=== PATIENT | male | born 1960 | race Caucasian/White ===

== ENCOUNTER → 2020-12-12 11:42 | Outpatient (BNVA) | payer OTHER, SELFPAY | PROVIDERS: PCP Internal Medicine; Visit Provider Internal Medicine | DX: I25.10 Atherosclerotic heart disease of native coronary artery without angina pectoris (principal); I10 Essential (primary) hypertension; E78.5 Hyperlipidemia, unspecified; Z95.5 Presence of coronary angioplasty implant and graft | CPT/HCPCS: 93005; 99212 ==

== ENCOUNTER 2021-01-24 09:00 | Outpatient (REF) | payer OTHER, SELFPAY ==
[2021-01-24 09:36] LABS: Basophils Absolute Auto 0.1 X10*3/uL (0.0-0.2); Basophils Percent Auto 0.9 % (0-2); Eosinophils Absolute Auto 0.3 X10*3/uL (0.0-0.4); Eosinophils Percent Auto 3.4 % (0-4); Hematocrit 40.4 % (42-52); Imm Gran Abs Auto 0.03 X10*3/uL (0.00-0.03); Imm Gran Pct Auto 0.3 % (0.0-0.4); Lymphocytes Absolute Auto 3.7 X10*3/uL (1.2-4.9); Lymphocytes Percent Auto 36.9 % (20-40); MANUAL DIFF FLAG NO; Mean Corpuscular HGB Conc 32.2 g/dl (31.0-36.0); Mean Corpuscular Hemoglobin 25.7 pg (27.0-33.0); Mean Platelet Volume 11.9 fL (9.4-12.4); Monocytes Absolute Auto 0.8 X10*3/uL (0.1-1.2); Neutrophils Absolute Auto 5.1 X10*3/uL (2.0-8.3); Neutrophils Percent Auto 50.5 % (45-73); Platelet Count 206 X10*3/uL (160-400); Red Blood Count 5.05 X10*6/uL (4.60-5.80); White Blood Count 10.1 X10*3/uL (4.8-10.8)
[2021-01-24 10:12] LABS: Alanine Aminotransferase 33 U/L (0-40); Albumin Level 4.5 g/dL (3.5-5.0); Alkaline Phosphatase 119 U/L (39-117); Anion Gap 12 (12-20); Aspartate Amino Transferase 26 U/L (5-37); Bilirubin Direct 0.2 mg/dL (0.0-0.5); Bilirubin Total 0.3 mg/dL (0.0-1.0); Blood Urea Nitrogen 10 mg/dL (9-16); Calcium 10.1 mg/dL (8.4-10.2); Carbon Dioxide 26 mmol/L (22-29); Chloride 101 mmol/L (96-108); Cholesterol 124 mg/dL; Estimated Glomerular Filt Rate > 60; Glucose Fasting 457 mg/dL (60-99); HDL Cholesterol 43 mg/dL; LDL Cholesterol Calculated 69 mg/dl; Potassium 4.9 mmol/L (3.3-5.1); Sodium 134 mmol/L (135-145); Total Protein 7.4 g/dL (6.5-8.0); Triglycerides 60 mg/dL
[2021-01-24 10:26] LABS: PSA,Total (Free>4and<10) 0.63 ng/mL (0.00-4.00); TSH reflex Free T4 2.65 uIU/mL (0.32-4.0)
[2021-01-25 12:47] LABS: Vitamin B12 920 pg/mL (200-900)
[2021-01-28 11:53] LABS: Vitamin D 25-OH, D2 <4 ng/mL; Vitamin D 25-OH, D3 21 ng/mL; Vitamin D 25-OH, Total 21 ng/mL (30-100)
== END 2021-01-24 09:01 | disposition home or self-care (01) ==
LOC: HO.LAB 09:00
PROVIDERS: PCP Internal Medicine; Visit Provider Internal Medicine
DX: I25.10 Atherosclerotic heart disease of native coronary artery without angina pectoris (principal); I10 Essential (primary) hypertension; E55.9 Vitamin D deficiency, unspecified; R53.83 Other fatigue; N39.43 Post-void dribbling; E78.00 Pure hypercholesterolemia, unspecified; Z20.822 Contact with and (suspected) exposure to COVID-19; Z12.5 Encounter for screening for malignant neoplasm of prostate
CPT/HCPCS: 36415; 80053; 80061; 80076; 82306; 82607; 82746; 84153; 84443; 85025; U0003; U0005

== ENCOUNTER 2021-03-16 11:31 | Emergency (ER) | payer OTHER, SELFPAY ==
--- NOTE | ~2021-03-16 | XR_ITS ---
EXAMINATION: XR FINGER, RIGHT CLINICAL INFORMATION: Question foreign body COMPARISON: None TECHNIQUE: 3 views of the right fourth digit. FINDINGS: The bones and soft tissues are normal. No fracture. Alignment is anatomic. Joint spaces are maintained. XR/XR finger RT min 2V IMPRESSION: No radiopaque foreign body or deformity.
[2021-03-16 11:57] VITALS: BP 109/76; PULSE 78; RESP 18; TEMP 36.9; O2SAT 95; BMI 22.8
[2021-03-16] MEDS: Amoxicillin/Potassium Clav 875 MG TABLET PO (12:28)
[2021-03-16] MEDS: Lidocaine HCl 1 % MPF 5 ML VIAL SUBCUT (12:28)
--- NOTE | 2021-03-16 13:57 | ED_ITS ---
HPI - Skin/Abscess/Foreign Bdy General Chief complaint: Skin/Abscess/Foreign Body Stated complaint: fb in finger Time Seen by Provider: 03/16/21 12:15 Source: patient Mode of arrival: ambulatory Limitations: no limitations History of Present Illness HPI narrative: Right ring finger question foreign body he has had pain and swelling in the palmar aspect for past 2 days. States he went fishing was picking up wood and unsure if gets splinter in or not. He otherwise states he is up-to-date on vaccinations denies any other complaints. MD complaint: abscess/boil Onset (ago): day(s) (2) Tetanus up to date: yes Location: R hand (Right ring finger) Severity: mild Severity scale (1-10): 4 Relieving factors: none Exacerbating factors: none Context: none Associated symptoms: denies other symptoms Treatments prior to arrival: none Related Data Home Medications Medication Instructions Recorded Confirmed aspirin 81 mg chewable tablet 1 tab PO DAILY 09/04/20 01/16/21 atorvastatin 80 mg tablet 80 mg PO DAILY 09/04/20 01/16/21 Previous Rx's Medication Instructions Recorded metoprolol succinate 25 mg 25 mg PO DAILY 90 Days #90 tab 09/06/20 tablet,extended release 24 hr ezetimibe 10 mg tablet 10 mg PO DAILY #90 tab 11/03/20 amlodipine 10 mg tablet 10 mg PO DAILY #90 tab 12/12/20 hydrochlorothiazide 25 mg tablet 25 mg PO DAILY 90 Days #90 tab 12/23/20 metformin 500 mg tablet 500 mg PO BID 30 Days #60 tab 01/24/21 blood sugar diagnostic #100 ea 01/28/21 blood-glucose meter #1 ea 01/28/21 lancets 28 gauge #100 ea 01/28/21 amoxicillin-pot clavulanate 1 tab PO Q12H 7 Days #14 tab 03/16/21 [Augmentin] Allergies Allergy/AdvReac Type Severity Reaction Status Date / Time anesthesia from wisdom tooth Allergy Unknown pt woke up Uncoded 03/16/21 12:00 e in hospital, does not remember reaction Review of Systems Review of Systems: Constitutional: No Weight loss, No Fever, No Chills, No Night Sweats, No Fatigue, No Malaise ENT/Mouth: No Hearing loss, No Ear Pain, No Nasal Congestion, No Sinus Pain, No Hoarseness, No sore throat, No Rhinorrhea, No Swallowing Difficulty Eyes: Negative Cardiovascular: Negative Respiratory: Negative Gastrointestinal: Negative Genitourinary: Negative Musculoskeletal: No joint pain, No Myalgias, No Joint Swelling Skin: No Skin Lesions, No rash, as noted per HPI Neuro: No Weakness, No Numbness, No Paresthesias, No Loss of Consciousness, No Dizziness, No Headache Psych:No Social Issues Heme/Lymph: No Bruising, No Bleeding,No Lymphadenopathy Endocrine: No Polyuria, No Polydipsia, No Temperature Intolerance Yes all other systems are reviewed and are negative [facility] Past Medical History Medical History Atherosclerotic cardiovascular disease CAD (coronary artery disease) Essential hypertension Fatigue Other and unspecified hyperlipidemia Pure hypercholesterolemia Urinary dribbling Surgical History Stented coronary artery Family History Family History Mother CVD (cardiovascular disease) Father Diabetes Hypertension Social History Social History (Updated 01/16/21 @ 09:52 by Katlyn Jaimes MD) Alcohol intake: never Smoking Status: Current every day smoker Tobacco Type: Cigarette Cigarettes Per Day: 10 Advance Directives: No Advance Directives Information Provided: Yes Physical Exam Vital Signs: Vital Signs: Last Vital Signs Temp 98.5 F 03/16/21 11:57 Pulse 78 03/16/21 11:57 Resp 18 03/16/21 11:57 BP 109/76 03/16/21 11:57 Pulse Ox 95 03/16/21 11:57 Body Mass Index 22.8 Reviewed Const: General: cooperative and healthy appearing; No acute distress or intoxicated appearing Nutritional Appearance: average body habitus Orientation/consciousness: patient oriented x3 Chest: Chest palpation & inspection: normal inspection of the chest Resp: Effort & Inspection: normal respiratory effort Skin: General skin exam: no rashes or lesions noted Neuro: General: patient oriented x3 Extrem: General: Yes normal to inspection Hand/finger images: 1. Slightly indurated area proximal palmar aspect slightly TTP. No obvious erythema. Visible with a splinter. Course Course Course Narrative: X-ray without evidence of foreign body in the right ring finger. Visibly there is a splinter and slightly indurated area with slight purulent discharge this was removed using forceps and 18. Needle after digital block. Patient tolerated procedure very well he was given dose of Augmentin her e his underlying history of diabetes will start him on antibiotics for home clear precaution return follow-up instructions provided. Stable for discharge. Procedures Foreign Body Removal Site: right Description of foreign body: other (Ring finger) Sedation/Analgesia: other (Lidocaine digital block) Technique: manual removal and removal with forceps Confirmed by:: direct visualization Complications: none Post-procedure exam: awake, alert Neurovascular: normal distal pulse, normal capillary fill, distal light touch sensation intact, distal motor function normal, no signs of compartment syndrome and other (Small less than 0.5 cm wooden splinter removed intact. No further evidence of foreign body.) Discharge Plan Discharge Clinical Impression: Splinter of finger Patient Disposition: Home, Self-Care Instructions: Soft Tissue Foreign Body (ED) Additional Instructions: You had a wooden splinter removed from the right ring finger there was a small infections like The x-ray did not otherwise show anything outs On exam after I took up with a splinter does not appear to be any retained foreign body It is very important for you to take the full course of antibiotics for next 7 days Monitor for signs of infection including redness, swelling, discharge, pain or fever if any of these present return to emergency room right away Follow-up with your primary care doctor in 3-5 days for close check given your history of diabetes you are at increased risk for infections and poor healing. Thank you Prescriptions: New amoxicillin-pot clavulanate [Augmentin] 875-125 mg tablet 1 tab PO Q12H 7 Days Qty: 14 RF: 0 No Action metoprolol succinate 25 mg tablet extended release 24 hr 25 mg PO DAILY 90 Days Qty: 90 RF: 3 ezetimibe 10 mg tablet 10 mg PO DAILY Qty: 90 RF: 3 metformin 500 mg tablet 500 mg PO BID 30 Days Qty: 60 RF: 6 (DME) blood-glucose meter [FreeStyle Lite Meter] Kit See Rx Instructions .ROUTE .MEDSUPPLY Qty: 1 RF: 0 (DME) FreeStyle Lite Strips Strip See Rx Instructions .ROUTE .MEDSUPPLY Qty: 100 RF: 3 (DME) lancets [FreeStyle Lancets] 28 gauge misc See Rx Instructions .ROUTE .MEDSUPPLY Qty: 100 RF: 3 aspirin 81 mg tablet,chewable 1 tab PO DAILY RF: 0 atorvastatin 80 mg tablet 80 mg PO DAILY RF: 0 hydrochlorothiazide 25 mg tablet 25 mg PO DAILY 90 Days Qty: 90 RF: 1 amlodipine 10 mg tablet 10 mg PO DAILY Qty: 90 RF: 4 Referrals: Katlyn Teague MD [Primary Care Provider] - 3 days Interventions: ED Discharge Assessment Last Done: 03/16/21 14:10 Discharge Date/Time: 03/16/21 14:10
== END 2021-03-16 14:10 | disposition home or self-care (01) ==
PROVIDERS: Emergency Provider Emergency Medicine; PCP Internal Medicine
DX: S61.244A Puncture wound with foreign body of right ring finger without damage to nail, initial encounter (principal); W45.8XXA Other foreign body or object entering through skin, initial encounter; Y93.89 Activity, other specified; Y92.89 Other specified places as the place of occurrence of the external cause; Y99.8 Other external cause status
CPT/HCPCS: 73140; 96372; 99283; 99284

== ENCOUNTER → 2021-04-03 15:07 | Outpatient (BNVA) | payer OTHER, SELFPAY | PROVIDERS: PCP Internal Medicine; Visit Provider Urology ==

== ENCOUNTER → 2021-04-29 12:44 | Outpatient (BNVA) | payer OTHER, SELFPAY | PROVIDERS: PCP Internal Medicine; Visit Provider Nurse Practitioner Gerontology | DX: E11.65 Type 2 diabetes mellitus with hyperglycemia (principal); E78.00 Pure hypercholesterolemia, unspecified; E55.9 Vitamin D deficiency, unspecified; I10 Essential (primary) hypertension | CPT/HCPCS: 82947; 99212 ==

== ENCOUNTER → 2021-05-28 10:35 | Outpatient (BNVA) | payer OTHER, SELFPAY | PROVIDERS: PCP Internal Medicine; Visit Provider Dietitian, Registered | DX: E11.65 Type 2 diabetes mellitus with hyperglycemia (principal) | CPT/HCPCS: 97802 ==

== ENCOUNTER → 2021-06-03 07:13 | Outpatient (BNVA) | payer OTHER, SELFPAY | PROVIDERS: PCP Internal Medicine; Visit Provider Nurse Practitioner Gerontology | DX: E11.65 Type 2 diabetes mellitus with hyperglycemia (principal); E78.00 Pure hypercholesterolemia, unspecified; I10 Essential (primary) hypertension; E55.9 Vitamin D deficiency, unspecified | CPT/HCPCS: 82947; 99212 ==

== ENCOUNTER → 2021-06-11 12:09 | Outpatient (BNVA) | payer OTHER, SELFPAY | PROVIDERS: PCP Internal Medicine; Referring Provider Internal Medicine; Visit Provider Internal Medicine | DX: I25.10 Atherosclerotic heart disease of native coronary artery without angina pectoris (principal); E78.5 Hyperlipidemia, unspecified; I10 Essential (primary) hypertension; Z95.5 Presence of coronary angioplasty implant and graft; Z79.82 Long term (current) use of aspirin | CPT/HCPCS: 99212 ==

== ENCOUNTER → 2021-07-10 13:35 | Outpatient (BNVA) | payer OTHER, SELFPAY | PROVIDERS: PCP Internal Medicine; Visit Provider Dietitian, Registered | DX: E11.9 Type 2 diabetes mellitus without complications (principal) | CPT/HCPCS: 97803 ==

== ENCOUNTER → 2021-08-21 13:56 | Outpatient (BNVA) | payer OTHER, SELFPAY | PROVIDERS: PCP Internal Medicine; Visit Provider Dietitian, Registered | DX: E11.65 Type 2 diabetes mellitus with hyperglycemia (principal) | CPT/HCPCS: 97803 ==

== ENCOUNTER 2021-09-22 10:42 | Emergency (ER) | payer OTHER, SELFPAY ==
[2021-09-22 11:05] VITALS: BP 151/82; PULSE 86; RESP 20; TEMP 35.7; O2SAT 99; BMI 26.6
--- NOTE | 2021-09-22 12:35 | ED_ITS ---
HPI - Wound/Laceration General Chief Complaint: Wound/Laceration Stated Complaint: R foot issues (diabetic) Time Seen by Provider: 09/22/21 12:29 Source: patient Mode of arrival: ambulatory Limitations: no limitations History of Present Illness HPI narrative: Patient comes emergency room complaining of a blister in the lateral aspect of the right foot/plantar aspect. Patient states he noticed the blister today. Patient opted, no longer draining pus. Patient complaining of mild generalized pain, patient denies fever chills. Related Data Previous Rx's Medication Instructions Recorded metoprolol succinate 25 mg 25 mg PO DAILY 90 Days #90 tab 09/06/20 tablet,extended release 24 hr ezetimibe 10 mg tablet 10 mg PO DAILY #90 tab 11/03/20 amlodipine 10 mg tablet 10 mg PO DAILY #90 tab 12/12/20 blood sugar diagnostic (FreeStyle #100 ea 01/28/21 Lite Strips) blood-glucose meter (FreeStyle #1 ea 01/28/21 Lite Meter) lancets 28 gauge (FreeStyle #100 ea 01/28/21 Lancets) insulin glargine 100 unit/mL (3 20 unit (0.2 mL) SUBCUT QPM 30 04/22/21 mL) subcutaneous pen (Lantus Days #6 ml Solostar U-100 Insulin) metformin 1,000 mg tablet 1,000 mg PO BID 90 Days #180 tab 04/22/21 pen needle, diabetic 32 gauge x #100 ea 04/22/21 516 (Comfort EZ Pen [place]) pen needle, diabetic 32 gauge x #100 ea 04/22/21 (BD Jacinda 2nd Gen Pen Needle) cholecalciferol (vitamin D3) 25 25 mcg PO DAILY #30 cap 04/29/21 mcg (1,000 unit) capsule flash glucose scanning reader #1 ea 04/29/21 (FreeStyle Brian 2 [place]) hydrochlorothiazide 25 mg tablet 25 mg PO DAILY 90 Days #90 tab 06/17/21 flash glucose sensor (FreeStyle #2 ea 06/19/21 Brian 2 Sensor) atorvastatin 80 mg tablet 80 mg PO DAILY 90 Days #90 tab 06/30/21 aspirin 81 mg chewable tablet 1 tab PO DAILY 90 Days #90 tab 08/05/21 tamsulosin 0.4 mg capsule 0.4 mg PO BEDTIME 30 Days #90 cap 08/19/21 mupirocin 2 % topical ointment 1 appl TOPICAL TID #15 g 09/22/21 Allergies Allergy/AdvReac Type Severity Reaction Status Date / Time anesthesia from wisdom tooth Allergy Intermediate pt woke up Uncoded 09/09/21 13:13 e in hospital, does not remember reaction Review of Systems Review of Systems: Constitutional : No Weight loss, No Fever, No Chills, No Night Sweats, No Fatigue, No Malaise ENT/Mouth : No Hearing loss, No Ear Pain, No Nasal Congestion, No Sinus Pain, No Hoarseness, No sore throat, No Rhinorrhea, No Swallowing Difficulty Eyes: No Eye Pain, No Swelling, No Redness, No Foreign Body, No Discharge, No Vision Changes Cardiovascular : No Chest Pain, No SOB, No Dyspnea on Exertion, No Orthopnea, No Edema, No Palpitations Respiratory : No Cough, No Sputum, No Wheezing, No Smoke Exposure, No Dyspnea Gastrointestinal : No Nausea, No Vomiting, No Diarrhea, No Constipation, No abdominal Pain, No Hematochezia, No Melena Genitourinary : no irregular bleeding, No Dysuria, No Urinary Frequency, No Hematuria, No Urinary Incontinence, No Urgency, No Flank Pain, No Urinary Flow Changes, No Hesitancy Musculoskeletal : No joint pain, No Myalgias, No Joint Swelling Skin : Small blister on the plantar/lateral aspect the right foot Neuro : No Weakness, No Numbness, No Paresthesias, No Loss of Consciousness, No Dizziness, No Headache Psych : No Anxiety/Panic, No Depression, No SI/HI/AH/VH, No Social Issues, Heme/Lymph: No Bruising, No Bleeding,No Lymphadenopathy Endocrine : No Polyuria, No Polydipsia, No Temperature Intolerance [facility] Past Medical History Medical History Atherosclerotic cardiovascular disease BPH (benign prostatic hyperplasia) CAD (coronary artery disease) Diabetes mellitus Diabetes type 2, uncontrolled Essential hypertension Fatigue Other and unspecified hyperlipidemia Pure hypercholesterolemia Urinary dribbling Vitamin D deficiency Surgical History Stented coronary artery Family History Family History Mother CVD (cardiovascular disease) Father Diabetes Hypertension Social History Social History Household Members: Spouse Housing: Apartment Alcohol intake: current Alcohol intake frequency: a few times a month Alcohol type: beer Patient Tobacco Use Status: Current everyday Tobacco user Tobacco use type: Cigarette Cigarettes Per Day: 10 e-Cigarette/Vaping Use: Never Used Second Hand Smoke Exposure: No Advance Directives: No Advance Directives Information Provided: No service: No Current occupational status: unemployed Physical Exam Vital Signs: Vital Signs: Last Vital Signs Temp 96.3 F L 09/22/21 11:05 Pulse 86 09/22/21 11:05 Resp 20 09/22/21 11:05 BP 151/82 H 09/22/21 11:05 Pulse Ox 99 09/22/21 11:05 Body Mass Index 26.6 Const: Other: Appearance: Alert. Oriented X3. No acute distress. Eyes: Pupils equal, round and reactive to light. ENT: Pharynx normal. Neck: Normal inspection. Neck supple. No lymph nodes noted. No crepitus CVS: Normal heart rate and rhythm. Pulses normal. Normal S1 and S2 Respiratory: No respiratory distress. Breath sounds normal. No Wheezing. No rales Abdomen: Soft and nontender. No rigidity. No distention. good BS x4 Skin: Skin warm and dry. Small callus in the lateral aspect of the right foot, not fluid filled, not tender to palpation, no cellulitis Extremities: No lower extremity edema. No lower extremity edema. No Lacerations. No Rash see above Neuro: Oriented X 3. No motor deficit. No sensory deficit. Moving all extermities. No slurred speech. Course Course Course Narrative: I discussed the physical exam with the patient, at this time oral antibiotics are not recommended. Discharge Plan Discharge Clinical Impression: Blister Patient Disposition: Home, Self-Care Instructions: Blister (ED) Additional Instructions: Please follow-up with your primary care physician tomorrow. If you have any worsening or new symptoms, please return to the emergency room or call 911 Prescriptions: New mupirocin 2 % ointment 1 appl topical TID Qty: 15 RF: 0 No Action metoprolol succinate 25 mg tablet extended release 24 hr 25 mg PO DAILY 90 Days Qty: 90 RF: 3 ezetimibe 10 mg tablet 10 mg PO DAILY Qty: 90 RF: 3 (DME) blood-glucose meter [FreeStyle Lite Meter] Kit See Rx Instructions .ROUTE .MEDSUPPLY Qty: 1 RF: 0 (DME) FreeStyle Lite Strips Strip See Rx Instructions .ROUTE .MEDSUPPLY Qty: 100 RF: 3 (DME) lancets [FreeStyle Lancets] 28 gauge misc See Rx Instructions .ROUTE .MEDSUPPLY Qty: 100 RF: 3 (DME) pen needle, diabetic [BD Jacinda 2nd Gen Pen Needle] 32 gauge x 5/32 needle See Rx Instructions .ROUTE .MEDSUPPLY Qty: 100 RF: 3 hydrochlorothiazide 25 mg tablet 25 mg PO DAILY 90 Days Qty: 90 RF: 1 (DME) FreeStyle Brian 2 Sensor Kit See Rx Instructions .ROUTE .MEDSUPPLY Qty: 2 RF: 6 atorvastatin 80 mg tablet 80 mg PO DAILY 90 Days Qty: 90 RF: 1 aspirin 81 mg tablet,chewable 1 tab PO DAILY 90 Days Qty: 90 RF: 3 tamsulosin 0.4 mg capsule 0.4 mg PO BEDTIME 30 Days Qty: 90 RF: 3 metformin 1,000 mg tablet 1,000 mg PO BID 90 Days Qty: 180 RF: 3 Lantus Solostar U-100 Insulin 100 unit/mL (3 mL) insulin pen 20 unit subcut QPM 30 Days Qty: 6 RF: 2 (DME) Comfort EZ Pen [place] 32 gauge x 5/16 needle See Rx Instructions .ROUTE .MEDSUPPLY Qty: 100 RF: 3 (DME) FreeStyle Brian 2 [place] Misc See Rx Instructions .ROUTE .MEDSUPPLY Qty: 1 RF: 0 cholecalciferol (vitamin D3) 25 mcg (1,000 unit) capsule 25 mcg PO DAILY Qty: 30 RF: 6 amlodipine 10 mg tablet 10 mg PO DAILY Qty: 90 RF: 4
[2021-09-22 12:47] VITALS: BP 145/91; PULSE 80; TEMP 37.1
== END 2021-09-22 13:03 | disposition home or self-care (01) ==
PROVIDERS: Emergency Provider Emergency Medicine; PCP Internal Medicine
DX: S90.821A Blister (nonthermal), right foot, initial encounter (principal); M79.671 Pain in right foot; F17.210 Nicotine dependence, cigarettes, uncomplicated; X58.XXXA Exposure to other specified factors, initial encounter; Y93.9 Activity, unspecified; Y92.9 Unspecified place or not applicable; Y99.9 Unspecified external cause status; Z79.899 Other long term (current) drug therapy; Z71.6 Tobacco abuse counseling
CPT/HCPCS: 99283; 99284

== ENCOUNTER → 2021-10-07 08:03 | Outpatient (BNVA) | payer OTHER, SELFPAY | PROVIDERS: PCP Internal Medicine; Visit Provider Nurse Practitioner Gerontology | DX: E11.65 Type 2 diabetes mellitus with hyperglycemia (principal); E78.00 Pure hypercholesterolemia, unspecified; E55.9 Vitamin D deficiency, unspecified; I10 Essential (primary) hypertension | CPT/HCPCS: 82947; 99212 ==

== ENCOUNTER 2021-10-13 10:21 | Outpatient (REF) | payer OTHER, SELFPAY ==
[2021-10-13 12:07] LABS: Alanine Aminotransferase 25 U/L (0-40); Albumin Level 4.7 g/dL (3.5-5.0); Alkaline Phosphatase 74 U/L (39-117); Anion Gap 13 (12-20); Aspartate Amino Transferase 26 U/L (5-37); Bilirubin Total 0.5 mg/dL (0.0-1.0); Blood Urea Nitrogen 15 mg/dL (9-16); Calcium 10.5 mg/dL (8.4-10.2); Carbon Dioxide 25 mmol/L (22-29); Chloride 104 mmol/L (96-108); Cholesterol 156 mg/dL; Estimated Glomerular Filt Rate > 60; Glucose Fasting 131 mg/dL (60-99); HDL Cholesterol 64 mg/dL; LDL Cholesterol Calculated 81 mg/dl; Potassium 4.1 mmol/L (3.3-5.1); Sodium 138 mmol/L (135-145); Total Protein 7.6 g/dL (6.5-8.0); Triglycerides 57 mg/dL
[2021-10-13 12:31] LABS: Creatinine Urine 13.14 mg/dL; Microalbumin Urine < 5.0 mg/L
[2021-10-13 12:31] LABS: Vitamin D 25-OH Total 39.2 ng/mL (>30)
[2021-10-14 08:56] LABS: LDL Cholesterol Direct 66 mg/dL (<100)
== END 2021-10-13 10:22 | disposition home or self-care (01) ==
LOC: HO.LAB 10:21
PROVIDERS: PCP Internal Medicine; Visit Provider Nurse Practitioner Gerontology
DX: E11.9 Type 2 diabetes mellitus without complications (principal); E55.9 Vitamin D deficiency, unspecified
CPT/HCPCS: 36415; 80053; 80061; 82043; 82306; 83721

== ENCOUNTER → 2021-11-20 14:48 | Outpatient (BNVA) | payer OTHER, SELFPAY | PROVIDERS: PCP Internal Medicine; Visit Provider Dietitian, Registered | DX: E11.65 Type 2 diabetes mellitus with hyperglycemia (principal) | CPT/HCPCS: 97803 ==

== ENCOUNTER → 2021-11-27 13:07 | Outpatient (BNVA) | payer OTHER, SELFPAY | PROVIDERS: PCP Internal Medicine; Referring Provider Internal Medicine; Visit Provider Internal Medicine | DX: I25.10 Atherosclerotic heart disease of native coronary artery without angina pectoris (principal); I10 Essential (primary) hypertension; E78.5 Hyperlipidemia, unspecified; E11.8 Type 2 diabetes mellitus with unspecified complications; Z95.5 Presence of coronary angioplasty implant and graft | CPT/HCPCS: 93005; 99212 ==

== ENCOUNTER 2022-04-03 10:14 | Outpatient (REF) | payer OTHER, SELFPAY ==
[2022-04-03 11:37] LABS: Creatinine Urine 50.78 mg/dL; Microalbumin Urine < 5.0 mg/L
[2022-04-03 11:53] LABS: PSA,Total (Free>4and<10) 0.48 ng/mL (0.00-4.00)
[2022-04-03 12:08] LABS: Alanine Aminotransferase 17 U/L (0-40); Albumin Level 4.4 g/dL (3.5-5.0); Alkaline Phosphatase 92 U/L (39-117); Anion Gap 9 (12-20); Aspartate Amino Transferase 21 U/L (5-37); Bilirubin Total 0.4 mg/dL (0.0-1.0); Blood Urea Nitrogen 10 mg/dL (9-16); Calcium 10.3 mg/dL (8.4-10.2); Carbon Dioxide 29 mmol/L (22-29); Chloride 101 mmol/L (96-108); Cholesterol 152 mg/dL; Estimated Glomerular Filt Rate > 60; Glucose Fasting 149 mg/dL (60-99); HDL Cholesterol 72 mg/dL; LDL Cholesterol Calculated 73 mg/dl; Potassium 4.3 mmol/L (3.3-5.1); Sodium 135 mmol/L (135-145); Total Protein 7.1 g/dL (6.5-8.0); Triglycerides 35 mg/dL
[2022-04-07 15:43] LABS: Calcium (PTHI) 9.8 mg/dL (8.6-10.3); PTHI 41 pg/mL (16-77)
[2022-04-09 12:57] LABS: Vitamin D 25-OH, D2 <4 ng/mL; Vitamin D 25-OH, D3 30 ng/mL; Vitamin D 25-OH, Total 30 ng/mL (30-100)
[2022-04-10 07:36] LABS: Calcium, Ionized 5.3 mg/dL (4.8-5.6)
== END 2022-04-03 10:15 | disposition home or self-care (01) ==
LOC: HO.LAB 10:14
PROVIDERS: PCP Internal Medicine; Visit Provider Internal Medicine
DX: Z12.5 Encounter for screening for malignant neoplasm of prostate (principal); R35.1 Nocturia; N40.1 Benign prostatic hyperplasia with lower urinary tract symptoms; E83.52 Hypercalcemia; E78.5 Hyperlipidemia, unspecified; E11.8 Type 2 diabetes mellitus with unspecified complications
CPT/HCPCS: 36415; 80053; 80061; 82043; 82306; 82330; 83970; 84153

== ENCOUNTER → 2022-04-06 09:32 | Outpatient (BNVA) | payer OTHER, SELFPAY | PROVIDERS: PCP Internal Medicine; Visit Provider Nurse Practitioner Gerontology | DX: E11.65 Type 2 diabetes mellitus with hyperglycemia (principal); E78.00 Pure hypercholesterolemia, unspecified; E55.9 Vitamin D deficiency, unspecified; I10 Essential (primary) hypertension; Z79.4 Long term (current) use of insulin; Z79.84 Long term (current) use of oral hypoglycemic drugs | CPT/HCPCS: 82947; 99212 ==

== ENCOUNTER 2022-05-09 17:50 | Emergency (ER) | payer OTHER, SELFPAY ==
--- NOTE | 2022-05-09 | ECG_ITS ---
Test Reason : NAUSEA Blood Pressure : / mmHG Vent. Rate : 094 BPM Atrial Rate : 094 BPM P-R Int : 188 ms QRS Dur : 106 ms QT Int : 374 ms P-R-T Axes : 076 042 071 degrees QTc Int : 467 ms Normal sinus rhythm Normal ECG When compared with ECG of 10-JAN-2019 07:01, Vent. rate has increased BY 39 BPM Minimal criteria for Inferior infarct are no longer Present Referred By: Generic ED Physician Electronically Signed By:BRO VILLANUEVA MD
[2022-05-09 18:02] VITALS: BP 133/85; PULSE 88; RESP 18; TEMP 37.2; O2SAT 100; BMI 22.5
[2022-05-09 18:21] LABS: Glucose, Whole Blood 94 mg/dL (60-115)
[2022-05-09 18:22] LABS: Basophils Percent Auto 0.3 % (0-2); Eosinophils Percent Auto 0.2 % (0-4); Hematocrit 42.7 % (42.0-52.0); Hemoglobin 14.4 g/dl (14.0-18.0); Imm Gran Abs Auto 0.03 X10*3/uL (0.00-0.03); Imm Gran Pct Auto 0.3 % (0.0-0.4); Lymphocytes Absolute Auto 1.4 X10*3/uL (1.2-4.9); Lymphocytes Percent Auto 14.4 % (20-40); MANUAL DIFF FLAG NO; Mean Corpuscular HGB Conc 33.7 g/dl (31.0-36.0); Mean Corpuscular Hemoglobin 26.6 pg (27.0-33.0); Mean Corpuscular Volume 78.8 fL (80.0-98.0); Monocytes Absolute Auto 0.5 X10*3/uL (0.1-1.2); Neutrophils Absolute Auto 7.9 x10*3/uL (2.0-8.3); Neutrophils Percent Auto 79.8 % (45-73); Platelet Count 310 X10*3/uL (160-400); Red Blood Count 5.42 X10*6/uL (4.60-5.80); Red Cell Distribution Width 14.3 % (11.0-16.0); White Blood Count 9.9 X10*3/uL (4.8-10.8)
[2022-05-09 18:39] LABS: Alanine Aminotransferase 20 U/L (0-40); Alkaline Phosphatase 111 U/L (39-117); Anion Gap 21 (12-20); Aspartate Amino Transferase 29 U/L (5-37); Bilirubin Direct 0.4 mg/dL (0.0-0.5); Bilirubin Total 0.9 mg/dL (0.0-1.0); Blood Urea Nitrogen 11 mg/dL (9-16); Calcium 10.4 mg/dL (8.4-10.2); Carbon Dioxide 24 mmol/L (22-29); Chloride 92 mmol/L (96-108); Creatinine Clr Calc Pharmacy 88.7; Estimated Glomerular Filt Rate > 60; Glucose Random 111 mg/dL (60-115); Potassium 4.2 mmol/L (3.3-5.1); Sodium 133 mmol/L (135-145); Total Protein 7.9 g/dL (6.5-8.0)
[2022-05-09 18:49] LABS: Appearance Urine CLEAR; Color Urine YELLOW; Glucose Urine UA NEG (NEG); Leukocyte Esterase Urine NEG (NEG); Nitrite Urine NEG (NEG); Specific Gravity - Urine >= 1.030 (1.005-1.025); UACC Culture Trigger NO; Urine Blood TRACE (NEG); Urine Ketones >=80 MG/DL (NEG); Urine Protein TRACE MG/DL (NEG-TRACE)
[2022-05-09 19:05] LABS: Amphetamine Screen Urine Not Detected (Not Detect); Barbiturates, Urine Not Detected (Not Detect); Benzodiazepines Screen Urine Not Detected (Not Detect); Cannabinoid Screen Urine POSITIVE (Not Detect); Cocaine Screen Urine Not Detected (Not Detect); Fentanyl, urine Not Detected (Not Detect); Opiate Screen Urine Not Detected (Not Detect); Phencyclidine Screen Urine Not Detected (Not Detect)
[2022-05-09 19:10] LABS: RBC Urine 0-2 /HPF (0); Squamous Epithelial Cell Urine TRACE /LPF; WBC Urine 0-2 /HPF (0-4)
[2022-05-09 22:18] LABS: Lipase 27 U/L (8-78)
[2022-05-09 22:33] VITALS: BP 146/89; PULSE 94; RESP 16; TEMP 37.5; O2SAT 99
--- NOTE | 2022-05-09 22:38 | ED.NAVMDI ---
HPI - Nausea/Vomiting/Diarrhea General Chief complaint: Abdominal Pain Stated complaint: Abd pain/vomiting/Black spot on foot(diabetic) Time Seen by Provider: 05/09/22 21:45 Source: patient, family and asl interpreter Mode of arrival: ambulatory Limitations: no limitations History of Present Illness MD elicited complaint: nausea, vomiting and abdominal pain Pertinent past history: other (started after eating heavy seafood and some alcohol last night) Onset (ago): hour(s) (6am this morning stopped 2 hours ago) Description of vomiting: food contents, watery and bilious Associated nausea: Yes Associated abdominal pain: Yes Location of pain: periumbilical Pain consistency: intermittent Severity: mild Quality: dull and constant Exacerbating factors: eating Relieving factors: none Context: possible food poisoning Associated symptoms: loss of appetite and other (also worried dropped a can of beans on his R left great toe - able to walk just worried cause he has diabetes) Related Data Previous Rx's Medication Instructions Recorded blood-glucose meter (FreeStyle #1 ea 01/28/21 Lite Meter) lancets 28 gauge (FreeStyle #100 ea 01/28/21 Lancets) insulin glargine 100 unit/mL (3 20 unit (0.2 mL) subcut QPM 30 04/22/21 mL) subcutaneous pen (us days #6 mL Solostar U-100 Insulin) metformin 1,000 mg tablet 1,000 mg PO BID 90 days #180 tabs 04/22/21 pen needle, diabetic 32 gauge x #100 ea 04/22/2103/30 (Comfort EZ Pen [place]) flash glucose scanning reader #1 ea 04/29/21 (FreeStyle Brian 2 [place]) hydrochlorothiazide 25 mg tablet 25 mg PO DAILY 90 days #90 tabs 06/17/21 tamsulosin 0.4 mg capsule 0.4 mg PO BEDTIME 30 days #90 caps 08/19/21 mupirocin 2 % topical ointment 1 appl topical TID #15 grams 09/22/21 flash glucose sensor (FreeStyle #2 ea 11/27/21 Brian 2 Sensor) pen needle, diabetic 32 gauge x #100 ea 11/27/21 (BD Jacinda 2nd Gen Pen Needle) atorvastatin 80 mg tablet 80 mg PO DAILY 90 days #90 tabs 02/07/22 aspirin 81 mg chewable tablet 81 mg PO DAILY 90 days #90 tabs 01/15/22 blood sugar diagnostic (FreeStyle #100 ea 01/18/22 Lite Strips) amlodipine 10 mg tablet 10 mg PO DAILY #90 tabs 03/03/22 cholecalciferol (vitamin D3) 25 25 mcg PO DAILY #30 caps 04/06/22 mcg (1,000 unit) capsule famotidine 20 mg tablet (Pepcid) 20 mg PO DAILY PRN abdominal 05/09/22 discomfort #30 tabs ondansetron 4 mg disintegrating 4 mg PO Q8H PRN nausea and 05/09/22 tablet vomiting #20 tabs Allergies Allergy/AdvReac Type Severity Reaction Status Date / Time anesthesia from wisdom tooth Allergy Intermediate pt woke up Uncoded 04/06/22 09:52 e in hospital, does not remember reaction Review of Systems Review of Systems: Constitutional : No Weight loss, No Fever, No Chills ENT/Mouth : No sore throat, No Rhinorrhea Eyes: No Swelling, No Redness Cardiovascular : No Chest Pain, No SOB, NoEdema Respiratory : No Cough, No Sputum, No Wheezing Gastrointestinal : Positive Nausea, Positive Vomiting, no Diarrhea, positive abdominal Pain, No Hematochezia, No Melena Genitourinary : No Dysuria, No Urinary Frequency, No Hematuria, No Urgency Musculoskeletal : No joint pain, No Myalgias, No Joint Swelling Skin : No Skin Lesions, No rash Neuro : No Weakness, No Numbness, No Dizziness, No Headache Psych : No Anxiety/Panic, No Depression Heme/Lymph: No Bruising, No Lymphadenopathy Endocrine : No Polyuria, No Polydipsia All other systems reviewed and are negative. Gastrointestinal: Gastrointestinal: Reports nausea PMFSH Past Medical History Attestation statement: The following information was validated with the patient. Medical History (Updated 05/09/22 @ 23:44 by Apolonia Nelson DO) CAD (coronary artery disease) Essential hypertension Pure hypercholesterolemia Type 2 diabetes mellitus with unspecified complications Family History Family History Mother CVD (cardiovascular disease) Father Diabetes Hypertension Social History Social History Household Members: Spouse Housing: Apartment Alcohol intake: current Alcohol intake frequency: a few times a month Alcohol type: beer Patient Tobacco Use Status: Current everyday Tobacco user Tobacco use type: Cigarette Cigarettes Per Day: 10 e-Cigarette/Vaping Use: Never Used Second Hand Smoke Exposure: No Advance Directives: No service: No Current occupational status: unemployed Physical Exam Vital Signs: Vital Signs: Last Vital Signs Temp 99.5 F 05/09/22 22:33 Pulse 94 05/09/22 22:33 Resp 16 05/09/22 22:33 BP 146/89 H 05/09/22 22:33 Pulse Ox 99 05/09/22 22:33 O2 Del Method 05/09/22 22:33 BMI result Body Mass Index 22.5 Appearance: Alert. Oriented X3. No acute distress. Eyes: Pupils equal, round and reactive to light. ENT: Pharynx normal. Neck: Normal inspection. Neck supple. CVS: Normal heart rate and rhythm. Pulses normal. Respiratory: No respiratory distress. Breath sounds normal. Abdomen: Soft and minimal ttp to umbilical area Skin: Skin warm and dry. Normal skin color. Normal skin turgor. Extremities: No lower extremity edema. No calf ttp very small bruise tip of left great toe no subungual hematoma full ROM no pain to joints doubt fracture Neuro: Oriented X 3. No motor deficit. No sensory deficit. Course Course Course Narrative: patient able to tolerate PO feels better stable for DC MDM - Nausea/Vomiting/Diarrhea MDM Narrative Medical decision making narrative: 61 yo male hx of HTN, DM states he ate a lot of oily seafood last night and drank a little ETOH woke up this AM with vomiting all day until 2 hours ago - at this time overall abdomen is benign he is not toxic, labs stable, L great toe is mild bruise doubt fracture - will hydrate give zofran and pepcid. Anticipate DC once he can tolerate PO. Lab Data Result diagrams: 05/09/22 18:17 05/09/22 18:17 Labs: Lab Results 05/09/22 05/09/22 05/09/22 Range/Units 18:08 18:17 18:17 WBC 9.9 (4.8-10.8) X10*3/uL RBC 5.42 (4.60-5.80) X10*6/uL Hgb 14.4 (14.0-18.0) g/dl Hct 42.7 (42.0-52.0) % MCV 78.8 L (80.0-98.0) fL MCH 26.6 L (27.0-33.0) pg MCHC 33.7 (31.0-36.0) g/dl RDW 14.3 (11.0-16.0) % Plt Count 310 (160-400) X10*3/uL MPV 10.0 (9.4-12.4) fL Immature Gran % (Auto) 0.3 (0.0-0.4) % Neut % (Auto) 79.8 H (45-73) % Lymph % (Auto) 14.4 L (20-40) % [place] % (Auto) 5.0 (2-11) % Eos % (Auto) 0.2 (0-4) % Baso % (Auto) 0.3 (0-2) % Lymph # (Auto) 1.4 (1.2-4.9) X10*3/uL [place] # (Auto) 0.5 (0.1-1.2) X10*3/uL Eos # (Auto) 0.0 (0.0-0.4) X10*3/uL Baso # (Auto) 0.0 (0.0-0.2) X10*3/uL Abs Immat Gran (auto) 0.03 (0.00-0.03) X10*3/uL Absolute Neuts (auto) 7.9 (2.0-8.3) x10*3/uL Absolute Nucleated RBC 0.000 (0.0-0.012) X10*3/uL Nucleated RBC % (auto) 0.0 (0.0-0.2) /100WBC Sodium 133 L (135-145) mmol/L Potassium 4.2 (3.3-5.1) mmol/L Chloride 92 L (96-108) mmol/L Carbon Dioxide 24 (22-29) mmol/L Anion Gap 21 H (12-20) BUN 11 (9-16) mg/dL Creatinine 0.84 (0.5-1.4) mg/dL Estim Creat Clear Calc 88.7 Estimated GFR > 60 POC Glucose 94 (60-115) mg/dL Random Glucose 111 (60-115) mg/dL Calcium 10.4 H (8.4-10.2) mg/dL Total Bilirubin 0.9 (0.0-1.0) mg/dL Direct Bilirubin 0.4 (0.0-0.5) mg/dL AST 29 (5-37) U/L ALT 20 (0-40) U/L Alkaline Phosphatase 111 D (39-117) U/L Total Protein 7.9 (6.5-8.0) g/dL Albumin 5.0 (3.5-5.0) g/dL Lipase 27 (8-78) U/L Urine Color Urine Appearance Urine pH (5.0-8.0) Ur Specific [place] (1.005-1.025) Urine Protein (NEG-TRACE) MG/DL Urine Glucose (UA) (NEG) MG/DL Urine Ketones (NEG) MG/DL Urine Blood (NEG) Urine Nitrite (NEG) Ur Leukocyte Esterase (NEG) Urine RBC (0) /HPF Urine WBC (0-4) /HPF Ur Squamous Epith Cells /LPF Urine Bacteria /LPF Urine Opiates Screen (Not Detect) Urine Fentanyl Screen (Not Detect) Ur Barbiturates Screen (Not Detect) Ur Phencyclidine Scrn (Not Detect) Ur Amphetamines Screen (Not Detect) U Benzodiazepines Scrn (Not Detect) Urine Cocaine Screen (Not Detect) U Marijuana (THC) Screen (Not Detect) 05/09/22 05/09/22 Range/Units 18:34 18:34 WBC (4.8-10.8) X10*3/uL RBC (4.60-5.80) X10*6/uL Hgb (14.0-18.0) g/dl Hct (42.0-52.0) % MCV (80.0-98.0) fL MCH (27.0-33.0) pg MCHC (31.0-36.0) g/dl RDW (11.0-16.0) % Plt Count (160-400) X10*3/uL MPV (9.4-12.4) fL Immature Gran % (Auto) (0.0-0.4) % Neut % (Auto) (45-73) % Lymph % (Auto) (20-40) % [place] % (Auto) (2-11) % Eos % (Auto) (0-4) % Baso % (Auto) (0-2) % Lymph # (Auto) (1.2-4.9) X10*3/uL [place] # (Auto) (0.1-1.2) X10*3/uL Eos # (Auto) (0.0-0.4) X10*3/uL Baso # (Auto) (0.0-0.2) X10*3/uL Abs Immat Gran (auto) (0.00-0.03) X10*3/uL Absolute Neuts (auto) (2.0-8.3) x10*3/uL Absolute Nucleated RBC (0.0-0.012) X10*3/uL Nucleated RBC % (auto) (0.0-0.2) /100WBC Sodium (135-145) mmol/L Potassium (3.3-5.1) mmol/L Chloride (96-108) mmol/L Carbon Dioxide (22-29) mmol/L Anion Gap (12-20) BUN (9-16) mg/dL Creatinine (0.5-1.4) mg/dL Estim Creat Clear Calc Estimated GFR POC Glucose (60-115) mg/dL Random Glucose (60-115) mg/dL Calcium (8.4-10.2) mg/dL Total Bilirubin (0.0-1.0) mg/dL Direct Bilirubin (0.0-0.5) mg/dL AST (5-37) U/L ALT (0-40) U/L Alkaline Phosphatase (39-117) U/L Total Protein (6.5-8.0) g/dL Albumin (3.5-5.0) g/dL Lipase (8-78) U/L Urine Color YELLOW Urine Appearance CLEAR Urine pH 6.0 (5.0-8.0) Ur Specific [place] >= 1.030 H (1.005-1.025) Urine Protein TRACE (NEG-TRACE) MG/DL Urine Glucose (UA) NEG (NEG) MG/DL Urine Ketones >=80 (NEG) MG/DL Urine Blood TRACE (NEG) Urine Nitrite NEG (NEG) Ur Leukocyte Esterase NEG (NEG) Urine RBC 0-2 (0) /HPF Urine WBC 0-2 (0-4) /HPF Ur Squamous Epith Cells TRACE /LPF Urine Bacteria NONE /LPF Urine Opiates Screen Not Detected (Not Detect) Urine Fentanyl Screen Not Detected (Not Detect) Ur Barbiturates Screen Not Detected (Not Detect) Ur Phencyclidine Scrn Not Detected (Not Detect) Ur Amphetamines Screen Not Detected (Not Detect) U Benzodiazepines Scrn Not Detected (Not Detect) Urine Cocaine Screen Not Detected (Not Detect) U Marijuana (THC) Screen POSITIVE H (Not Detect) Discharge Plan Discharge Clinical Impression: Vomiting, Contusion Patient Disposition: Home, Self-Care Instructions: Acute Nausea and Vomiting (ED), Contusion in Adults (ED), Dehydration (ED) Additional Instructions: return to ED for any worsening symptoms or concerns Prescriptions: New famotidine [Pepcid] 20 mg tablet 20 mg PO DAILY PRN (Reason: abdominal discomfort) Qty: 30 0RF ondansetron 4 mg tablet,disintegrating 4 mg PO Q8H PRN (Reason: nausea and vomiting) Qty: 20 0RF No Action (DME) blood-glucose meter [FreeStyle Lite Meter] Kit See Rx Instructions .ROUTE .MEDSUPPLY Qty: 1 0RF Rx Instructions: check blood glucose daily (DME) lancets [FreeStyle Lancets] 28 gauge misc See Rx Instructions .ROUTE .MEDSUPPLY Qty: 100 3RF Rx Instructions: test blood glucose daily hydrochlorothiazide 25 mg tablet 25 mg PO DAILY 90 Days Qty: 90 1RF tamsulosin 0.4 mg capsule 0.4 mg PO BEDTIME 30 Days Qty: 90 3RF (DME) FreeStyle Brian 2 Sensor Kit See Rx Instructions .ROUTE .MEDSUPPLY Qty: 2 6RF Rx Instructions: As directed every 2 weeks (DME) pen needle, diabetic [BD Jacinda 2nd Gen Pen Needle] 32 gauge x 5/32 needle See Rx Instructions .ROUTE .MEDSUPPLY Qty: 100 11RF Rx Instructions: Use 1 needel once a day for 90 days atorvastatin 80 mg tablet 80 mg PO DAILY 90 Days Qty: 90 3RF (DME) FreeStyle Lite Strips Strip See Rx Instructions .ROUTE .MEDSUPPLY Qty: 100 3RF Rx Instructions: test blood glucose amlodipine 10 mg tablet 10 mg PO DAILY Qty: 90 3RF mupirocin 2 % ointment 1 appl topical TID Qty: 15 0RF metformin 1,000 mg tablet 1,000 mg PO BID 90 Days Qty: 180 3RF Lantus Solostar U-100 Insulin 100 unit/mL (3 mL) insulin pen 20 unit subcut QPM 30 Days Qty: 6 2RF (DME) Comfort EZ Pen [place] 32 gauge x 5/16 needle See Rx Instructions .ROUTE .MEDSUPPLY Qty: 100 3RF Rx Instructions: Use 1 needle for 90 day aspirin 81 mg tablet,chewable 81 mg PO DAILY 90 Days Qty: 90 1RF (DME) FreeStyle Brian 2 [place] Misc See Rx Instructions .ROUTE .MEDSUPPLY Qty: 1 0RF Rx Instructions: As directed cholecalciferol (vitamin D3) 25 mcg (1,000 unit) capsule 25 mcg PO DAILY Qty: 30 6RF Stand Alone Forms: Work/School Release Print Language: English
[2022-05-09] MEDS: 0.9 % Sodium Chloride 1,000 ML 999 ML IV (22:55)
[2022-05-09] MEDS: ondansetron HCL 4 MG/2 ML VIAL IVPUSH (22:55)
[2022-05-09] MEDS: Famotidine/PF 20 MG/2 ML VIAL IVPUSH (22:55)
== END 2022-05-10 00:27 | disposition home or self-care (01) ==
PROVIDERS: Emergency Provider Emergency Medicine; PCP Internal Medicine
DX: S99.922A Unspecified injury of left foot, initial encounter (principal); R11.2 Nausea with vomiting, unspecified; Y29.XXXA Contact with blunt object, undetermined intent, initial encounter; Y93.9 Activity, unspecified; Y92.9 Unspecified place or not applicable; Y99.9 Unspecified external cause status; Z79.899 Other long term (current) drug therapy; F17.210 Nicotine dependence, cigarettes, uncomplicated; Z71.6 Tobacco abuse counseling
CPT/HCPCS: 36415; 80053; 80307; 81001; 82248; 82947; 83690; 85025; 93005; 96361; 96374; 96375; 99283; 99284; J2405

== ENCOUNTER 2022-06-29 09:20 | Outpatient (REF) | payer OTHER, SELFPAY ==
[2022-06-29 10:21] LABS: Alanine Aminotransferase 18 U/L (0-40); Albumin Level 4.6 g/dL (3.5-5.0); Alkaline Phosphatase 81 U/L (39-117); Anion Gap 14 (12-20); Aspartate Amino Transferase 22 U/L (5-37); Bilirubin Total 0.6 mg/dL (0.0-1.0); Blood Urea Nitrogen 9 mg/dL (9-16); Calcium 9.6 mg/dL (8.4-10.2); Carbon Dioxide 26 mmol/L (22-29); Chloride 101 mmol/L (96-108); Cholesterol 184 mg/dL; Estimated Glomerular Filt Rate > 60; Glucose Fasting 159 mg/dL (60-99); HDL Cholesterol 96 mg/dL; LDL Cholesterol Calculated 80 mg/dl; Potassium 3.9 mmol/L (3.3-5.1); Sodium 137 mmol/L (135-145); Total Protein 7.3 g/dL (6.5-8.0); Triglycerides 44 mg/dL
[2022-06-29 10:41] LABS: Vitamin D 25-OH Total 39.1 ng/mL (>30)
[2022-06-29 12:14] LABS: Creatinine Urine 62.35 mg/dL; Microalbumin Urine < 5.0 mg/L
== END 2022-06-29 09:21 | disposition home or self-care (01) ==
LOC: HO.LAB 09:20
PROVIDERS: PCP Internal Medicine; Visit Provider Internal Medicine
DX: E55.9 Vitamin D deficiency, unspecified (principal); E11.65 Type 2 diabetes mellitus with hyperglycemia; E78.5 Hyperlipidemia, unspecified; Z79.4 Long term (current) use of insulin
CPT/HCPCS: 36415; 80053; 80061; 82043; 82306

== ENCOUNTER → 2022-11-30 12:10 | Outpatient (BNVA) | payer OTHER, SELFPAY | PROVIDERS: PCP Internal Medicine; Referring Provider Internal Medicine; Visit Provider Internal Medicine | DX: I25.10 Atherosclerotic heart disease of native coronary artery without angina pectoris (principal); I10 Essential (primary) hypertension; E78.5 Hyperlipidemia, unspecified; E11.8 Type 2 diabetes mellitus with unspecified complications; F17.210 Nicotine dependence, cigarettes, uncomplicated | CPT/HCPCS: 99212 ==

== ENCOUNTER 2023-01-18 09:03 | Outpatient (REF) | payer OTHER, SELFPAY ==
[2023-01-18 10:40] LABS: Alanine Aminotransferase 33 U/L (0-40); Albumin Level 4.4 g/dL (3.5-5.0); Alkaline Phosphatase 89 U/L (39-117); Anion Gap 15 (12-20); Aspartate Amino Transferase 33 U/L (5-37); Bilirubin Total 0.3 mg/dL (0.0-1.0); Blood Urea Nitrogen 10 mg/dL (9-16); Calcium 9.6 mg/dL (8.4-10.2); Carbon Dioxide 27 mmol/L (22-29); Chloride 99 mmol/L (96-108); Cholesterol 137 mg/dL; Estimated Glomerular Filt Rate > 60; Glucose Fasting 141 mg/dL (60-99); HDL Cholesterol 58 mg/dL; LDL Cholesterol Calculated 72 mg/dl; Potassium 4.6 mmol/L (3.3-5.1); Sodium 136 mmol/L (135-145); Total Protein 6.9 g/dL (6.5-8.0); Triglycerides 36 mg/dL
[2023-01-18 10:57] LABS: Vitamin D 25-OH Total 32.5 ng/mL (>30)
[2023-01-18 11:39] LABS: Creatinine Urine 31.78 mg/dL; Microalbumin Urine < 5.0 mg/L
== END 2023-01-18 09:04 | disposition home or self-care (01) ==
LOC: HO.LAB 09:03
PROVIDERS: PCP Internal Medicine; Visit Provider Internal Medicine
DX: E78.5 Hyperlipidemia, unspecified (principal); E55.9 Vitamin D deficiency, unspecified; E11.9 Type 2 diabetes mellitus without complications
CPT/HCPCS: 36415; 80053; 80061; 82043; 82306

== ENCOUNTER 2023-05-06 10:42 | Emergency (ER) | payer OTHER, SELFPAY ==
--- NOTE | ~2023-05-06 | XR_ITS ---
EXAMINATION: XR FINGER, RIGHT CLINICAL INFORMATION: Pain. Query foreign body COMPARISON: None available. TECHNIQUE: 3 views of the right third digit. FINDINGS: With regards to the right third digit, there is mild fusiform soft tissue swelling at the PIP joint but no radiopaque foreign body or fracture, dislocation or destructive process. A very tiny radiodensity however is observed adjacent to the base of the second metacarpal No fractures or destructive lesions. Carpal alignment preserved. XR/XR finger RT min 2V IMPRESSION: Intact third finger. Please see above comments.
[2023-05-06 10:43] VITALS: BP 126/72; PULSE 85; RESP 18; TEMP 36.8; O2SAT 99; BMI 24.3
--- NOTE | 2023-05-06 12:43 | ED.EXTPRO ---
HPI - Extremity Problem General Chief complaint: Extremity Problem Stated complaint: right finger getting infected? diabetic Time Seen by Provider: 05/06/23 11:59 Source: patient, RN notes reviewed and old records reviewed Mode of arrival: ambulatory History of Present Illness HPI Narrative: 62-year-old male with a past medical history of CAD, HLD, HTN, diabetes, GERD, BPH, presenting to the ED complaining of suspected foreign body to right 3rd digit x 8 days. States unknown foreign body or insult. Admits was fishing last week however denies poking himself with fishing hook. Denies pain, fever, chills, drainage from area MD Complaint: extremity pain Related Data Previous Rx's Medication Instructions Recorded blood-glucose meter (FreeStyle #1 ea 01/28/21 Lite Meter kit) lancets 28 gauge (FreeStyle #100 ea 01/28/21 Lancets) insulin glargine 100 unit/mL (3 20 unit (0.2 mL) subcut QPM 30 04/22/21 mL) subcutaneous pen (Lantus days #6 mL Solostar U-100 Insulin) pen needle, diabetic 32 gauge x #100 ea 04/22/2103/30 (Comfort EZ Pen [place]) flash glucose scanning reader #1 ea 04/29/21 (FreeStyle Brian 2 [place]) tamsulosin 0.4 mg capsule 0.4 mg PO BEDTIME 30 days #90 caps 08/19/21 flash glucose sensor (FreeStyle #2 ea 11/27/21 Brian 2 Sensor kit) pen needle, diabetic 32 gauge x #100 ea 11/27/21 (BD Jacinda 2nd Gen Pen Needle) blood sugar diagnostic (FreeStyle #100 ea 01/18/22 Lite Strips) amlodipine 10 mg tablet 10 mg PO DAILY #90 tabs 03/03/22 famotidine 20 mg tablet (Pepcid) 20 mg PO DAILY PRN abdominal 05/09/22 discomfort #30 tabs ondansetron 4 mg disintegrating 4 mg PO Q8H PRN nausea and 05/09/22 tablet vomiting #20 tabs hydrochlorothiazide 25 mg tablet 25 mg PO DAILY 90 days #90 tabs 05/16/22 metformin 1,000 mg tablet 1,000 mg PO BID 90 days #180 tabs 06/21/22 aspirin 81 mg chewable tablet 81 mg PO DAILY 90 days #90 tabs 07/27/22 atorvastatin 80 mg tablet 80 mg PO DAILY 90 days #90 tabs 09/16/22 cholecalciferol (vitamin D3) 25 25 mcg PO DAILY #30 caps 01/14/23 mcg (1,000 unit) capsule ezetimibe 10 mg tablet 10 mg PO DAILY 90 days #90 tabs 04/02/23 cephalexin 500 mg capsule 500 mg PO QID 7 days #28 caps 05/06/23 Allergies Allergy/AdvReac Type Severity Reaction Status Date / Time anesthesia from wisdom tooth Allergy Intermediate pt woke up Uncoded 01/14/23 14:19 e in hospital, does not remember reaction Review of Systems Review of Systems: Constitutional: No Fever, No Chills ENT/Mouth: No Ear Pain, No Nasal Congestion, No sore throat, No Rhinorrhea, No Swallowing Difficulty Cardiovascular: No Chest Pain, No SOB Respiratory: No Cough, No Sputum, No Wheezing Gastrointestinal: No Nausea, No Vomiting, No Abdominal pain Musculoskeletal: No joint pain, No Myalgias, No Joint Swelling Skin: + Skin Lesions, No rash Neuro: No Weakness, No Numbness, No Paresthesias Yes all other systems are reviewed and are negative Constitutional: Constitutional: Reports as per [facility] Past Medical History Attestation statement: The following information was validated with the patient. Source: old records reviewed Medical History Atherosclerotic cardiovascular disease BPH (benign prostatic hyperplasia) CAD (coronary artery disease) (~2017) Diabetes mellitus (~2020) Essential hypertension Fatigue Hypercalcemia Nicotine dependence, cigarettes, uncomplicated Urinary dribbling Vitamin D deficiency Surgical History History of heart artery stent History of right breast biopsy Family History Family History Mother CVD (cardiovascular disease) Father Diabetes Hypertension Social History Social History Household Members: Spouse Housing: Apartment Alcohol intake: current Alcohol intake frequency: a few times a month Alcohol type: beer Patient Tobacco Use Status: Current everyday Tobacco user Tobacco use type: Cigarette Cigarettes Per Day: 10 Years Smoked: 40 e-Cigarette/Vaping Use: Never Used Second Hand Smoke Exposure: No Advance Directives: No Advance Directives Information Provided: Yes service: No Current occupational status: unemployed Cognitive needs: No Hearing needs: No Vision needs: Yes Physical Exam Vital Signs: Vital Signs: Last Vital Signs Temp 98.3 F 05/06/23 10:43 Pulse 85 05/06/23 10:43 Resp 18 05/06/23 10:43 BP 126/72 05/06/23 10:43 Pulse Ox 99 05/06/23 10:43 O2 Del Method Room Air 05/06/23 10:43 BMI result Body Mass Index 24.3 Const: General: cooperative, healthy appearing and no acute distress Orientation/consciousness: patient oriented x3 Limitations: no limitations HEENT: Head: Yes normal to inspection and Yes atraumatic Ears: hearing grossly normal bilaterally General nose exam: Normal external nose present Face and sinus: Yes normal facial exam Eyes: General: appearance normal, both eyes and all related structures EOM: EOMs intact bilaterally Neck: Neck: Yes normal visual inspection and Yes no meningeal signs Resp: Effort & Inspection: normal respiratory effort and no respiratory distress Cardio: Rate: regular rate Peripheral pulses: radial pulses present and ulnar radial pulses present Skin: Other: Small blood blister noted to right distal 3rd digit. No appreciable foreign body. Nontender. No fluctuance/induration. No erythema/warmth. Full range of motion intact. Neurovascularly intact Rashes: no rashes Neuro: General: patient oriented x3, tone normal and no meningeal signs Gait exam (Neuro): Normal gait present Extrem: General: Yes normal to inspection Course Course Course Narrative: XR finger RT min 2V IMPRESSION: Intact third finger. Please see above comments. >1446--went to re-evaluate patient and discussed results however eloped to the ED. Will still send p.o. antibiotics to pharmacy. There was no evidence of active cellulitis Medical Decision Making Medical Decision Making MDM Narrative: 62-year-old male with a past medical history of CAD, HLD, HTN, diabetes, GERD, BPH, presenting to the ED complaining of suspected foreign body to right 3rd digit x 8 days. On exam vital signs stable,, nontoxic appearing, physical exam as above. No appreciable foreign body. No evidence of cellulitis/infection or abscess. Low suspicion for septic joint. Area cleansed and 18 gauge needle used to up root skin, no underlying foreign body Will obtain x-ray to r/o deeper FB Please refer to course for remaining clinical decision making, interpretation of labs/imaging results, and discussions with consultants and/or family members. Differential Diagnosis Differential Diagnoses: The differential diagnosis associated with the presentation includes As above Independent Interpretation I performed an independent interpretation of an: Plain X-Ray (No appreciable foreign body at 3rd digit, small FB seen at 2nd digit) Radiology Impression Discussion of test interpretation with radiology: I have reviewed the radiologist's reading. External Record Review External record reviewed: Inpatient record, Office record, Outpatient record, Prior outpatient labs, Prior outpatient radiology, Primary care record and Outside ED record Tests considered The following testing was considered but not selected: As above Chronic Conditions Patient?s care impacted by: Diabetes and Hypertension Discharge Plan Discharge Clinical Impression: Foreign body finger, Finger pain Patient Disposition: Elopement Prescriptions: New cephalexin 500 mg capsule 500 mg PO QID 7 Days Qty: 28 0RF No Action (DME) blood-glucose meter [FreeStyle Lite Meter] Kit See Rx Instructions .ROUTE .MEDSUPPLY Qty: 1 0RF Rx Instructions: check blood glucose daily (DME) lancets [FreeStyle Lancets] 28 gauge misc See Rx Instructions .ROUTE .MEDSUPPLY Qty: 100 3RF Rx Instructions: test blood glucose daily tamsulosin 0.4 mg capsule 0.4 mg PO BEDTIME 30 Days Qty: 90 3RF (DME) FreeStyle Brian 2 Sensor Kit See Rx Instructions .ROUTE .MEDSUPPLY Qty: 2 6RF Rx Instructions: As directed every 2 weeks (DME) pen needle, diabetic [BD Jacinda 2nd Gen Pen Needle] 32 gauge x 5/32 needle See Rx Instructions .ROUTE .MEDSUPPLY Qty: 100 11RF Rx Instructions: Use 1 needel once a day for 90 days (DME) FreeStyle Lite Strips Strip See Rx Instructions .ROUTE .MEDSUPPLY Qty: 100 3RF Rx Instructions: test blood glucose amlodipine 10 mg tablet 10 mg PO DAILY Qty: 90 3RF hydrochlorothiazide 25 mg tablet 25 mg PO DAILY 90 Days Qty: 90 1RF metformin 1,000 mg tablet 1,000 mg PO BID 90 Days Qty: 180 3RF aspirin 81 mg tablet,chewable 81 mg PO DAILY 90 Days Qty: 90 1RF ezetimibe 10 mg tablet 10 mg PO DAILY 90 Days Qty: 90 1RF famotidine [Pepcid] 20 mg tablet 20 mg PO DAILY PRN (Reason: abdominal discomfort) Qty: 30 0RF ondansetron 4 mg tablet,disintegrating 4 mg PO Q8H PRN (Reason: nausea and vomiting) Qty: 20 0RF Lantus Solostar U-100 Insulin 100 unit/mL (3 mL) insulin pen 20 unit subcut QPM 30 Days Qty: 6 2RF (DME) Comfort EZ Pen [place] 32 gauge x 5/16 needle See Rx Instructions .ROUTE .MEDSUPPLY Qty: 100 3RF Rx Instructions: Use 1 needle for 90 day atorvastatin 80 mg tablet 80 mg PO DAILY 90 Days Qty: 90 3RF cholecalciferol (vitamin D3) 25 mcg (1,000 unit) capsule 25 mcg PO DAILY Qty: 30 6RF (DME) FreeStyle [facility] [place] [facility] See Rx Instructions .ROUTE .MEDSUPPLY Qty: 1 0RF Rx Instructions: As directed Interventions: ED Discharge Assessment Last Done: 05/06/23 14:44 Discharge Date/Time: 05/06/23 14:46
== END 2023-05-06 14:46 | disposition left against medical advice (07) ==
PROVIDERS: Emergency Provider Student in an Organized Health Care Education/Training Program; PCP Internal Medicine
DX: S61.246A Puncture wound with foreign body of right little finger without damage to nail, initial encounter (principal); X58.XXXA Exposure to other specified factors, initial encounter; M79.644 Pain in right finger(s); Y93.9 Activity, unspecified; Y92.9 Unspecified place or not applicable; Y99.9 Unspecified external cause status
CPT/HCPCS: 73140; 99282; 99283

== ENCOUNTER 2023-12-01 12:10 | Outpatient (AMB) | payer OTHER, SELFPAY ==
--- NOTE | 2023-12-01 13:03 | A.OFFVIS_ITS ---
Intake Vital Signs 12/01/23 13:04 Height 5 ft 8 in Weight 167 lb 8.821 oz BMI 25.5 BP 120/74 Blood Pressure Location Lt brachial Position Sitting Pulse 70 Intake Visit Reasons: 1Y follow up Intake Note: 1 year follow up w/ EKG Director Of Physical Therapy Required: Yes Director Of Physical Therapy Language: Core Machine Tender Name: Lilo [id number] Accompanied by: Self / Same As Patient Allergies anesthesia from wisdom tooth e Allergy (Intermediate, Uncoded 01/14/23 14:19) pt woke up in hospital, does not remember reaction Medication List - Last Reconciled 12/01/23 by Jerry Osman MD aspirin 81 mg PO DAILY 90 days atorvastatin 80 mg PO DAILY 90 days blood sugar diagnostic (FreeStyle Lite Strips) test blood glucose blood-glucose meter (FreeStyle Lite Meter kit) check blood glucose daily cholecalciferol (vitamin D3) 25 mcg PO DAILY ezetimibe 10 mg PO DAILY 90 days famotidine (Pepcid) 20 mg PO DAILY PRN flash glucose scanning reader (Theraclone SciencesStyle Brian 2 [place]) As directed flash glucose sensor (FreeStyle Brian 2 Sensor kit) As directed every 2 weeks hydrochlorothiazide 25 mg PO DAILY 90 days insulin glargine (Lantus Solostar U-100 Insulin) 20 units (0.2 mL) subcut QPM 30 days lancets (FreeStyle Lancets) test blood glucose daily metformin 1,000 mg PO BID 90 days ondansetron 4 mg PO Q8H PRN pen needle, diabetic (Comfort EZ Pen [place]) Use 1 needle for 90 day pen needle, diabetic (BD Jacinda 2nd Gen Pen Needle) Use 1 needel once a day for 90 days tamsulosin 0.4 mg PO BEDTIME 30 days HPI HPI Comments History of Present Illness Details Ren returns for follow-up regarding coronary artery disease. He has a history of ST-elevation myocardial infarction in 2018. He had right coronary artery stenting. He also had some disease in the circumflex that was not intervened upon. Then had hematemesis and at that time Plavix was stopped. Overall, doing well. No new complaints. FORMERLY [facility], [facility] Medical History Atherosclerotic cardiovascular disease BPH (benign prostatic hyperplasia) CAD (coronary artery disease) (~2017) Diabetes mellitus (~2020) Essential hypertension Fatigue Hypercalcemia Nicotine dependence, cigarettes, uncomplicated Urinary dribbling Vitamin D deficiency Surgical History History of right breast biopsy History of heart artery stent Family History Mother CVD (cardiovascular disease) Father Diabetes Hypertension Social History Household Members: Spouse Housing: Apartment Alcohol intake: current Alcohol intake frequency: a few times a month Alcohol type: beer Patient Tobacco Use Status: Current everyday Tobacco user Tobacco use type: Cigarette Cigarettes Per Day: 10 Years Smoked: 40 e-Cigarette/Vaping Use: Never Used Second Hand Smoke Exposure: No service: No Current occupational status: unemployed Cognitive needs: No Hearing needs: No Vision needs: Yes Review of Systems Const Denies weakness ENT Denies dizziness Card Denies chest pain with activity, Denies syncope, Denies rapid heart rate, Denies pedal edema, Denies edema, Denies leg edema, Denies lightheadedness, Denies palpitations, Denies dyspnea, Denies dyspnea on exertion and Denies orthopnea Resp Denies cough, Denies dyspnea and Denies dyspnea on exertion GI Denies hematochezia and Denies change in stool character Musc Denies abnormal gait, Denies muscle cramps, Denies muscle weakness, Denies numbness, Denies radiating pain into limb and Denies tingling Neuro Denies abnormal gait, Denies dizziness, Denies syncope, Denies numbness, Denies tingling and Denies weakness Endo Denies palpitations Physical Exam Vital Signs: Last Vital Signs Pulse 70 12/01/23 13:04 BP 120/74 12/01/23 13:04 BMI result Body Mass Index 25.5 Const General: comfortable and no acute distress Orientation/consciousness: patient oriented x3 HEENT Other: Unremarkable Head: Yes normal to inspection Neck Neck: Yes normal visual inspection Chest Chest palpation & inspection: normal inspection of the chest Resp Auscultation: clear to auscultation bilaterally Cardio Palpation: normal PMI Heart sounds: S1 normal heart sound present, S2 normal heart sound present, no gallops, no murmurs and no rubs GI Palpation (GI): Soft to palpation Back/Spine/Pelvis Other: unremarkable Skin General skin exam: no rashes or lesions noted Neuro General: patient oriented x3 Extrem General: Yes normal to inspection Psych Mental Status: mental status grossly normal Office Procedures EKG Details: EKG with sinus rhythm at 70/Min; no significant ST-T changes and otherwise unremarkable[place] [id number], Complete Assessment & Plan Assessment & Plan (1) Atherosclerotic cardiovascular disease: Code(s): I25.10 - Atherosclerotic heart disease of [place] coronary artery without angina pectoris Plan: Cardiac catheterization 2017-left main-normal; mid LAD 30%; proximal circumflex 60%; proximal RCA 99%, status post ELENITA Echocardiogram 2019-normal LVEF, 55-60%; no wall motion abnormalities; no significant valvular pathology. Continue aspirin indefinitely. No recurrent angina. (2) Essential hypertension: Code(s): I10 - Essential (primary) hypertension Plan: Blood pressure seems to be within normal range. It seems that he was on amlodipine 10 mg but no longer taking it. Otherwise, listed to be on hydrochlo rothiazide. (3) Other and unspecified hyperlipidemia: Code(s): E78.5 - Hyperlipidemia, unspecified Plan: On atorvastatin and Zetia. Last LDL 80 mg/dL. (4) Type 2 diabetes mellitus with unspecified complications: Code(s): E11.8 - Type 2 diabetes mellitus with unspecified complications Plan: On insulin, metformin. Last hemoglobin A1c is 6.2%. Well controlled. (5) Smoking: Code(s): F17.200 - Nicotine dependence, unspecified, uncomplicated Plan: Complete cessation. Coding Level of Care Code Est Pt Level 4 (48501) Diagnoses Atherosclerotic cardiovascular disease I25.10 Essential hypertension I10 Other and unspecified hyperlipidemia E78.5 Type 2 diabetes mellitus with unspecified complications E11.8 Smoking F17.200 CPT Codes EKG - CPT: 32419-[id number], Complete ([id number])
[2023-12-01 13:04] VITALS: BP 120/74; PULSE 70; BMI 25.5
== END 2023-12-01 13:37 | disposition home or self-care (01) ==
PROVIDERS: Visit Provider Internal Medicine
DX: I25.10 Atherosclerotic heart disease of native coronary artery without angina pectoris (principal); I10 Essential (primary) hypertension; E78.5 Hyperlipidemia, unspecified; E11.8 Type 2 diabetes mellitus with unspecified complications; F17.200 Nicotine dependence, unspecified, uncomplicated
CPT/HCPCS: 93010; 99214

== ENCOUNTER → 2023-12-01 12:10 | Outpatient (BNVA) | payer OTHER, SELFPAY | PROVIDERS: Visit Provider Internal Medicine | DX: I25.10 Atherosclerotic heart disease of native coronary artery without angina pectoris (principal); I10 Essential (primary) hypertension; E78.5 Hyperlipidemia, unspecified; E11.8 Type 2 diabetes mellitus with unspecified complications; F17.200 Nicotine dependence, unspecified, uncomplicated; Z79.82 Long term (current) use of aspirin; Z79.4 Long term (current) use of insulin; Z79.899 Other long term (current) drug therapy | CPT/HCPCS: 93005; 99212 ==

== ENCOUNTER 2024-02-15 14:34 | Outpatient (AMB) | payer OTHER, SELFPAY ==
--- NOTE | 2024-02-15 14:37 | MHC.PC.OV ---
Vital Signs 02/15/24 14:40 Height 5 ft 8 in Weight 168 lb 4 oz BMI 25.6 BP 150/82 H Blood Pressure Location Lt brachial Position Sitting Pulse 76 Pulse Source Pulse Oximeter Pulse Oximetry (%) 97 Oxygen Delivery Method Room Air Intake Visit Reasons: Transfer of care from Dr. Schmidt Intake Note: Patient is here today for a transfer of care from Dr Schmidt. Vendor Quality Supervisor Required: Yes Vendor Quality Supervisor Language: Computational Linguist Name: Sharee ([id number]) Information Interpreted: non-clinical & clinical Marketing Segment Manager: Not Required per policy Accompanied by: Self / Same As Patient Allergies anesthesia from wisdom tooth e Allergy (Intermediate, Uncoded 02/15/24 15:04) pt woke up in hospital, does not remember reaction Medication List - Last Reconciled 02/15/24 by Jethro Davis MD amlodipine 10 mg PO DAILY aspirin 81 mg PO DAILY 90 days atorvastatin 80 mg PO DAILY 90 days blood sugar diagnostic (FreeStyle Lite Strips) test blood glucose blood-glucose meter (FreeStyle Lite Meter kit) check blood glucose daily cholecalciferol (vitamin D3) 25 mcg PO DAILY ezetimibe 10 mg PO DAILY 90 days famotidine (Pepcid) 20 mg PO DAILY PRN flash glucose scanning reader (KuaiyongStyle Brian 2 [place]) As directed flash glucose sensor (FreeStyle Brian 2 Sensor kit) As directed every 2 weeks hydrochlorothiazide 25 mg PO DAILY 90 days insulin glargine (Lantus Solostar U-100 Insulin) 20 units (0.2 mL) subcut QPM 30 days lancets (FreeStyle Lancets) test blood glucose daily metformin 1,000 mg PO BID 90 days ondansetron 4 mg PO Q8H PRN pen needle, diabetic (Comfort EZ Pen [place]) Use 1 needle for 90 day pen needle, diabetic (BD Jacinda 2nd Gen Pen Needle) Use 1 needel once a day for 90 days tamsulosin 0.4 mg PO BEDTIME 30 days Tobacco use date assessed: 02/15/24 Dental Screening Dental Screen Date: 02/15/24 Did you have a dental visit in the last 12 months?: Yes Did you have a dental problem in the last 6 months where you did not have access to dental care?: No Was dental information given to patient?: Patient has dentist HPI Transfer of care from Dr. Schmidt HPI Details Patient comes in today for his follow up visit - is transferring over from Dr. Schmidt States that he currently feels okay He denies any headaches or dizziness Denies any chest pains, no SOB No nausea/vomiting, no abdominal pain No change in bowel habits noted Needs a few Rx refilled, including his pen needle and CGM sensor [facility] Medical History (Updated 02/15/24 @ 15:24 by Jethro Davis MD) Overweight (BMI 25.0-29.9) Coronary atherosclerosis Pure hypercholesterolemia Nicotine dependence, cigarettes, uncomplicated Hypercalcemia Vitamin D deficiency BPH (benign prostatic hyperplasia) Diabetes mellitus (~2020) Fatigue Urinary dribbling Atherosclerotic cardiovascular disease CAD (coronary artery disease) (~2017) Essential hypertension Surgical History History of right breast biopsy History of heart artery stent Family History Mother CVD (cardiovascular disease) Father Diabetes Hypertension Social History Household Members: Spouse Housing: Apartment Alcohol intake: current Alcohol intake frequency: a few times a month Alcohol type: beer Patient Tobacco Use Status: Current everyday Tobacco user Tobacco use type: Cigarette Cigarette Packs Per Day: 1 Cigarettes Per Day: 20 Years Smoked: 40 e-Cigarette/Vaping Use: Never Used Second Hand Smoke Exposure: Yes service: No Current occupational status: unemployed Cognitive needs: No Hearing needs: No Vision needs: Yes Questionnaire PHQ-9 Over the last 2 weeks, how often have you been bothered by any of the following problems? 1. Little interest or pleasure in doing things: not at all 2. Feeling down, depressed, or hopeless: not at all 3. Trouble falling or staying asleep, or sleeping too much: not at all 4. Feeling tired or having little energy: not at all 5. Poor appetite or overeating: not at all 6. Feeling bad about yourself - or that you are a failure or have let yourself or your family down: not at all 7. Trouble concentrating on things, such as reading the newspaper or watching television: not at all 8. Moving or speaking so slowly that other people could have noticed. Or the opposite - being so fidgety or restless that you have been moving around a lot more than usual: not at all 9. Thoughts that you would be better off or of hurting yourself in some way: not at all Total score: 0 Depression Screening Interpretation: Negative Depression Screening Done: Yes [id number] - PHQ-9 Billing: Yes Source: Developed by Drs. Vaibhav Delgado, Karol Go, Zak Rodriguez and colleagues, with an educational daniel from [employer] Thrive Questionnaire Date Thrive assessed: 02/15/24 I am a: Patient What is your living situation today?: I have a steady place to live Within the past 12 months, did the food you bought not last and you didn't have the money to get more?: Never true Within the past 12 months, did you worry whether your food would run out before you got money to buy more?: Never true Do you have trouble paying for medicines?: No Do you have trouble getting transportation to medical appointments?: No Do you have trouble paying your heating and electricity bill?: No Do you have trouble taking care of your child, family member or friend?: No Do you have trouble with day-to-day activities such as bathing, preparing meals, shopping, managing finances, etc.?: No Are you currently unemployed and looking for a job?: No Are you interested in more education?: No Currently or been in a relationship where the following occur: no concerns reported THRIVE Score: 0 AUDIT C Alcohol Use Questionnaire (AUDIT-C) 1. How often do you have a drink containing alcohol?: 4 or more times a week 2. How many drinks containing alcohol do you have on a typical day when you are drinking?: 1 or 2 3. How often do you have six or more drinks on one occasion?: Never Total Score: 4 Score Reviewed/Action Taken: Yes MAMADOU-7 AMB Questionnaire MAMADOU-7 Date MAMADOU - 7 assessed: 02/15/24 Feeling nervous, anxious, or on edge: 0 = Not at all Not being able to stop or control worryin = Not at all Worrying too much about different things: 0 = Not at all Trouble relaxin = Not at all Being so restless that it is hard to sit still: 0 = Not at all Becoming easily annoyed or irritable: 0 = Not at all Feeling afraid as if something awful might happen: 0 = Not at all Total MAMADOU-7 score (0-4 normal; 5-9 mild; 10-14 moderate; 15-21 severe): 0 Source: Developed by Drs. Vaibhav Delgado, Karol Go, Zak Rodriguez and colleagues, with an educational daniel from [employer] Review of Systems Const Denies chills, Denies fatigue, Denies fever(s) and Denies headache(s) ENT Denies dysphagia, Denies dizziness, Denies otalgia, Denies headache(s), Denies neck pain, Denies odynophagia and Denies sore throat Card Denies chest pain, Denies palpitations and Denies dyspnea Resp Denies cough and Denies dyspnea GI Denies abdominal pain, Denies constipation, Denies dysphagia, Denies heartburn, Denies diarrhea, Denies nausea, Denies odynophagia and Denies vomiting Denies dysuria, Denies nocturia and Denies urinary frequency Musc Denies back pain and Denies neck pain Skin/Breast Denies rash Neuro Denies dizziness and Denies headache(s) Endo Denies fatigue and Denies palpitations Physical exam (Primary Care) Vital Signs: Last Vital Signs Pulse 76 02/15/24 14:40 BP 150/82 H 02/15/24 14:40 Pulse Ox 97 02/15/24 14:40 Oxygen Delivery Method Room Air 02/15/24 14:40 BMI result Body Mass Index 25.6 Tobacco/Smoking Status: Tobacco use Status Tobacco use date assessed 02/15/24 02/15/24 14:44 Patient Tobacco Use Status Current everyday Tobacco 02/15/24 14:53 Tobacco use type Cigarette 02/15/24 14:53 e-Cigarette/Vaping Use Never Used 02/15/24 14:53 PHQ-9: PHQ-9 Score PHQ-9: Total score 0 02/15/24 15:06 Depression Screening Interpretation: Negative Thrive Assessment: Date of Thrive Assessment Date Thrive assessed 02/15/24 02/15/24 14:44 Currently or been in a relationship where the following occur: no concerns reported Const General: no acute distress and alert HENMT Ears: TM's normal bilaterally and EAC's normal Throat: Yes posterior oropharynx normal and Yes tonsils normal (no TP congestion) Neck Neck: Yes no lymphadenopathy and Yes supple Resp Auscultation: clear to auscultation bilaterally, no rales and no wheezes Cardio Rate: regular rate Rhythm: regular rhythm Heart sounds: no murmurs GI Palpation (GI): Soft to palpation and nontender Auscultation: normal bowel sounds General: Yes no CVA tenderness Back/Spine/Pelvis Back: no CVA tenderness Skin Rashes: no rashes Extrem General: Yes no clubbing, cyanosis or edema Results AMB Hemoglobin A1c AMB Hemoglobin A1c 6.6 % Last Edit by ABRIL Mcdowell on 02/15/24 15:19 Assessment and Plan Assessment & Plan (1) Diabetes mellitus: Onset Date: ~2020 Comment: DM2 - dx 03/2021 Code(s): E11.9 - Type 2 diabetes mellitus without complications Qualifiers: Diabetes mellitus type: type 2 Diabetes mellitus termite control representative insulin use: with termite control representative use Diabetes mellitus complication status: with hyperglycemia Qualified Code(s): E11.65 - Type 2 diabetes mellitus with hyperglycemia; Z79.4 - buttermaker continuous churn (current) use of insulin Plan: In-office HgbA1c done today is at 6.6% - goal is <7.0% Reinforced diabetic diet Continue Metformin 1000 mg BID and Lantus Solostar 20 units Q HS (2) Essential hypertension: Code(s): I10 - Essential (primary) hypertension Plan: Reinforced low sodium diet - goal is systolic BP of 120 mm or less Continue Hydrochlorothiazide 25 mg Q AM and Amlodipine 10 mg QD His blood pressure appears to be high today but it has been well controlled in the past, even during his cardiology follow up visit back in November 2023 Advised that he will be contacted by one of our nurse navigators in a week or so and they will help him keep track of and monitor his blood pressure for us Patient is reminded to continue monitoring his blood pressure regularly (3) Coronary atherosclerosis: Comment: S/P STEMI - RCA stented in 01/2018 Code(s): I25.10 - Atherosclerotic heart disease of [place] coronary artery without angina pectoris Qualifiers: Coronary Disease-Associated Artery/Lesion type: [place] artery [place] vs. transplanted heart: [place] heart Associated angina: without angina Qualified Code(s): I25.10 - Atherosclerotic heart disease of [place] coronary artery without angina pectoris Plan: S/P STEMI with stenting of RCA in 01/2018 Patient is currently asymptomatic Continue Aspirin 81 mg QD and aggressive risk factor modification and medical management Follow up with cardiology as scheduled (4) Pure hypercholesterolemia: Code(s): E78.00 - Pure hypercholesterolemia, unspecified Plan: Reinforced low cholesterol diet - goal is LDL cholesterol of <70 mg/dl due to his diabetes and CAD Dx Continue Atorvastatin 80 mg QD and Ezetimibe 10 mg QD Will recheck his labs and fasting lipids in 4 months for follow up (5) GERD (gastroesophageal reflux disease): Code(s): K21.9 - Gastro-esophageal reflux disease without esophagitis Qualifiers: Esophagitis presence: without esophagitis Qualified Code(s): K21.9 - Gastro-esophageal reflux disease without esophagitis Plan: Dietary restrictions reinforced Continue Famotidine 20 mg QD (6) Vitamin D deficiency: Code(s): E55.9 - Vitamin D deficiency, unspecified Plan: Continue Vitamin D3 1000 units QD (7) BPH (benign prostatic hyperplasia): Code(s): N40.0 - Benign prostatic hyperplasia without lower urinary tract symptoms Qualifiers: Lower urinary tract symptom detail: nocturia Lower urinary tract symptom presence: symptoms present Qualified Code(s): N40.1 - Benign prostatic hyperplasia with lower urinary tract symptoms; R35.1 - Nocturia Plan: Continue Tamsulosin 0.4 mg Q HS Follow up with urology as scheduled (8) Overweight (BMI 25.0-29.9): Code(s): E66.3 - Overweight Plan: Reinforced diet/exercise as tolerated/lose weight Plan Follow up in 4 months Orders: Orders Complete Blood Count Auto Diff 4 Months D64.9 - Anemia, unspecified Comprehensive [place]. Panel Fast 4 Months E78.00 - Pure hypercholesterolemia, unspecified Lipid Panel 4 Months E78.00 - Pure hypercholesterolemia, unspecified Vitamin D 25-OH Total 4 Months E55.9 - Vitamin D deficiency, unspecified UA CC w/rflx Micro + Cult 4 Months R30.0 - Dysuria Prostate Specific Antigen 4 Months N40.0 - Benign prostatic hyperplasia without lower urinary tract symptoms AMB Hemoglobin A1c Today E11.9 - Type 2 diabetes mellitus without complications Microalbumin, Random (w Creat) 4 Months E11.9 - Type 2 diabetes mellitus without complications Hemoglobin A1c 4 Months E11.9 - Type 2 diabetes mellitus without complications TSH reflex Free T4 4 Months E78.00 - Pure hypercholesterolemia, unspecified Medications: Refilled cholecalciferol (vitamin D3) 25 mcg PO DAILY 30 caps 6RF E55.9 - Vitamin D deficiency, unspecified flash glucose sensor (FreeStyle Brian 2 Sensor kit) As directed every 2 weeks 2 ea 6RF E11.65 - Type 2 diabetes mellitus with hyperglycemia pen needle, diabetic (BD Jacinda 2nd Gen Pen Needle) Use 1 needel once a day for 90 days 100 ea 11RF E11.65 - Type 2 diabetes mellitus with hyperglycemia, Z79.4 - MCFP (current) use of insulin Coding Level of Care Code Est Pt Level 4 (23335) Diagnoses Type 2 diabetes mellitus with hyperglycemia, with long-term current use of insulin E11.65; Z79.4 Diabetes mellitus type: type 2 Diabetes mellitus termite control representative insulin use: with group home use Diabetes mellitus complication status: with hyperglycemia Essential hypertension I10 Atherosclerosis of [place] coronary artery of [place] heart without angina pectoris I25.10 Coronary Disease-Associated Artery/Lesion type: [place] artery [place] vs. transplanted heart: [place] heart Associated angina: without angina Pure hypercholesterolemia E78.00 Gastroesophageal reflux disease without esophagitis K21.9 Esophagitis presence: without esophagitis Vitamin D deficiency E55.9 Benign prostatic hyperplasia with nocturia N40.1; R35.1 Lower urinary tract symptom detail: nocturia Lower urinary tract symptom presence: symptoms present Overweight (BMI 25.0-29.9) E66.3
[2024-02-15 14:40] VITALS: BP 150/82; PULSE 76; O2SAT 97; BMI 25.6
== END 2024-02-15 16:12 | disposition home or self-care (01) ==
PROVIDERS: Visit Provider Internal Medicine
DX: E11.65 Type 2 diabetes mellitus with hyperglycemia (principal); Z79.4 Long term (current) use of insulin; I10 Essential (primary) hypertension; I25.10 Atherosclerotic heart disease of native coronary artery without angina pectoris; E78.00 Pure hypercholesterolemia, unspecified; K21.9 Gastro-esophageal reflux disease without esophagitis; E55.9 Vitamin D deficiency, unspecified; N40.1 Benign prostatic hyperplasia with lower urinary tract symptoms; R35.1 Nocturia; E66.3 Overweight; E11.9 Type 2 diabetes mellitus without complications
CPT/HCPCS: 83036; 99214

== ENCOUNTER 2024-06-16 13:31 | Outpatient (AMB) | payer OTHER, SELFPAY ==
[2024-06-16 13:51] VITALS: BP 130/80; PULSE 78; O2SAT 99; BMI 24.2
--- NOTE | 2024-06-16 13:51 | MHC.PC.OV ---
Vital Signs 06/16/24 13:51 Height 5 ft 8 in Weight 159 lb 8 oz BMI 24.2 BP 130/80 Blood Pressure Location Lt brachial Position Sitting Pulse 78 Pulse Source Pulse Oximeter Pulse Oximetry (%) 99 Oxygen Delivery Method Room Air Intake Visit Reasons: CAD, DM, hyperlipidemia, HTN Air Traffic Controller Required: No Accompanied by: Self / Same As Patient Allergies anesthesia from wisdom tooth e Allergy (Intermediate, Uncoded 06/16/24 14:46) pt woke up in hospital, does not remember reaction Medication List - Last Reconciled 06/16/24 by Jethro Davis MD amlodipine 10 mg PO DAILY aspirin 81 mg PO DAILY 90 days atorvastatin 80 mg PO DAILY 90 days blood sugar diagnostic (FreeStyle Lite Strips) test blood glucose blood-glucose meter (FreeStyle Lite Meter kit) check blood glucose daily cholecalciferol (vitamin D3) 25 mcg PO DAILY ezetimibe 10 mg PO DAILY 90 days famotidine (Pepcid) 20 mg PO DAILY PRN flash glucose scanning reader ([employer] Brian 2 [place]) As directed flash glucose sensor (FreeStyle Brian 2 Sensor kit) As directed every 2 weeks hydrochlorothiazide 25 mg PO DAILY 90 days insulin glargine (Lantus Solostar U-100 Insulin) 20 units (0.2 mL) subcut QPM 30 days lancets (FreeStyle Lancets) test blood glucose daily metformin 1,000 mg PO BID 90 days ondansetron 4 mg PO Q8H PRN pen needle, diabetic (Comfort EZ Pen [place]) Use 1 needle for 90 day pen needle, diabetic (BD Jacinda 2nd Gen Pen Needle) Use 1 needel once a day for 90 days tamsulosin 0.4 mg PO BEDTIME 30 days Tobacco use date assessed: 02/15/24 Dental Screening Dental Screen Date: 02/15/24 HPI CAD, DM, hyperlipidemia, HTN HPI Details Patient comes in today for his follow up visit States that he feels okay He has been able to lose a few pounds since his last visit He denies any headaches or dizziness Denies any chest pains, no SOB No nausea/vomiting, no abdominal pain No change in bowel habits noted He was not able to get his follow up labs done prior to his visit today - states that he will try to go and get them done tomorrow morning Adds that he had a metal fragment go into his left forearm many years ago and the fragment has stayed in his arm since He recently noticed that the fragment seems to have moved and he tried applying a magnet on it and he was able to slightly lift the fragment along with the skin on his arm that is overlying the fragment He would now like to see if he can get someone to try to take out the metal piece from his left forearm [facility] Medical History Overweight (BMI 25.0-29.9) Coronary atherosclerosis Pure hypercholesterolemia Nicotine dependence, cigarettes, uncomplicated Hypercalcemia Vitamin D deficiency BPH (benign prostatic hyperplasia) Diabetes mellitus (~2020) Fatigue Urinary dribbling Atherosclerotic cardiovascular disease CAD (coronary artery disease) (~2017) Essential hypertension Surgical History History of right breast biopsy History of heart artery stent Family History Mother CVD (cardiovascular disease) Father Diabetes Hypertension Social History Household Members: Spouse Housing: Apartment Alcohol intake: current Alcohol intake frequency: a few times a month Alcohol type: beer Patient Tobacco Use Status: Current everyday Tobacco user Tobacco use type: Cigarette Cigarette Packs Per Day: 1 Cigarettes Per Day: 20 Years Smoked: 40 e-Cigarette/Vaping Use: Never Used Second Hand Smoke Exposure: Yes service: No Current occupational status: unemployed Cognitive needs: No Hearing needs: No Vision needs: Yes Questionnaire Thrive Questionnaire Date Thrive assessed: 02/15/24 MAMADOU-7 AMB Questionnaire MAMADOU-7 Date MAMADOU - 7 assessed: 02/15/24 Source: Developed by Drs. Vaibhav Delgado, Karol Go, Zak Rodriguez and colleagues, with an educational daniel from [employer]. Review of Systems Const Denies fatigue, Denies fever(s) and Denies headache(s) ENT Denies dysphagia, Denies dizziness, Denies otalgia, Denies headache(s), Denies neck pain, Denies odynophagia and Denies sore throat Card Denies chest pain, Denies palpitations and Denies dyspnea Resp Denies cough, Denies dyspnea and Denies wheezing GI Denies abdominal pain, Denies constipation, Denies dysphagia, Denies heartburn, Denies diarrhea, Denies nausea, Denies odynophagia and Denies vomiting Denies dysuria, Denies nocturia and Denies urinary frequency Musc Denies back pain, Denies arthralgias and Denies neck pain Skin/Breast Details: (+) palpable hard fragment under the skin on the left forearm Denies rash Neuro Denies dizziness and Denies headache(s) Endo Denies fatigue and Denies palpitations Aller/Immun Denies wheezing Physical exam (Primary Care) Vital Signs: Last Vital Signs Pulse 78 06/16/24 13:51 BP 130/80 06/16/24 13:51 Pulse Ox 99 06/16/24 13:51 Oxygen Delivery Method Room Air 06/16/24 13:51 BMI result Body Mass Index 24.2 Tobacco/Smoking Status: Tobacco use Status Tobacco use date assessed 02/15/24 06/16/24 13:52 Patient Tobacco Use Status Current everyday Tobacco 06/16/24 13:52 Tobacco use type Cigarette 06/16/24 13:52 e-Cigarette/Vaping Use Never Used 06/16/24 13:52 Thrive Assessment: Date of Thrive Assessment Date Thrive assessed 02/15/24 06/16/24 13:52 Const General: no acute distress and alert HENMT Ears: TM's normal bilaterally and EAC's normal Throat: Yes posterior oropharynx normal and Yes tonsils normal (no TP congestion) Neck Neck: Yes no lymphadenopathy and Yes supple Thyroid: Thyroid normal Resp Auscultation: clear to auscultation bilaterally, no rales and no wheezes Cardio Rate: regular rate Rhythm: regular rhythm Heart sounds: no murmurs GI Palpation (GI): Soft to palpation and nontender Auscultation: normal bowel sounds General: Yes no CVA tenderness Back/Spine/Pelvis Back: no CVA tenderness Skin Other: (+) palpable, non-tender particle /object under the skin of the volar left forearm on the lateral side Rashes: no rashes Extrem General: Yes no clubbing, cyanosis or edema Results AMB Hemoglobin A1c AMB Hemoglobin A1c 6.0 % Last Edit by RASHAD Trujillo on 06/16/24 14:45 Results Reviewed Results Reviewed: Laboratory Last Values Hgb A1c (Clinic) 6.0 % (4.0-6.0) 06/16/24 13:33 Assessment and Plan Assessment & Plan (1) Diabetes mellitus: Onset Date: ~2020 Comment: DM2 - dx 03/2021 Code(s): E11.9 - Type 2 diabetes mellitus without complications Qualifiers: Diabetes mellitus complication status: with hyperglycemia Diabetes mellitus senior living insulin use: with superintendent marine oil terminal use Diabetes mellitus type: type 2 Qualified Code(s): E11.65 - Type 2 diabetes mellitus with hyperglycemia; Z79.4 - care home (current) use of insulin Plan: His in-office HgbA1c done today is at 6.0% (was at 6.6% a few months ago) - goal is <7.0% Reinforced diabetic diet Continue Metformin 1000 mg BID and Lantus Solostar 20 units Q HS (2) Essential hypertension: Code(s): I10 - Essential (primary) hypertension Plan: Reinforced low sodium diet - goal is systolic BP of 120 mm or less Continue Hydrochlorothiazide 25 mg Q AM and Amlodipine 10 mg QD His blood pressure appears to be much better controlled today Patient is reminded to continue monitoring his blood pressure regularly (3) Coronary atherosclerosis: Comment: S/P STEMI - RCA stented in 01/2018 Code(s): I25.10 - Atherosclerotic heart disease of [place] coronary artery without angina pectoris Qualifiers: Associated angina: without angina Coronary Disease-Associated Artery/Lesion type: [place] artery [place] vs. transplanted heart: [place] heart Qualified Code(s): I25.10 - Atherosclerotic heart disease of [place] coronary artery without angina pectoris Plan: S/P STEMI with stenting of RCA in 01/2018 Patient is currently asymptomatic from cardiology standpoint Continue Aspirin 81 mg QD and aggressive risk factor modification Follow up with cardiology as scheduled (4) Pure hypercholesterolemia: Code(s): E78.00 - Pure hypercholesterolemia, unspecified Plan: He was not able to get his follow up labs done prior to his visit today - states that he will try to get them done tomorrow morning Reinforced low cholesterol diet - goal is LDL cholesterol of <70 mg/dl due to his diabetes and CAD Dx Continue Atorvastatin 80 mg QD and Ezetimibe 10 mg QD Will recheck his labs and fasting lipids in 4 months for follow up (5) GERD (gastroesophageal reflux disease): Code(s): K21.9 - Gastro-esophageal reflux disease without esophagitis Qualifiers: Esophagitis presence: without esophagitis Qualified Code(s): K21.9 - Gastro-esophageal reflux disease without esophagitis Plan: Dietary restrictions reinforced Continue Famotidine 20 mg QD (6) Vitamin D deficiency: Code(s): E55.9 - Vitamin D deficiency, unspecified Plan: Continue Vitamin D3 1000 units QD (7) BPH (benign prostatic hyperplasia): Code(s): N40.0 - Benign prostatic hyperplasia without lower urinary tract symptoms Qualifiers: Lower urinary tract symptom detail: nocturia Lower urinary tract symptom presence: symptoms present Qualified Code(s): N40.1 - Benign prostatic hyperplasia with lower urinary tract symptoms; R35.1 - Nocturia Plan: Continue Tamsulosin 0.4 mg Q HS Follow up with urology as scheduled (8) Foreign body of upper arm: Code(s): S40.859A - Superficial foreign body of unspecified upper arm, initial encounter Qualifiers: Encounter type: sequela Laterality: left Qualified Code(s): S40.852S - Superficial foreign body of left upper arm, sequela Plan: This is likely a metallic fragment, per patient, that ricocheted into his left forearm years ago Patient now wants to have this removed as much as possible Will send him for x-rays of the left forearm for further evaluation and to help delineate the foreign body in his arm Will refer him to surgery for further evaluation and consideration for excision of the foreign metallic object from his left forearm subcutaneous tissues Plan Follow up in 4 months Orders: Orders AMB Hemoglobin A1c Today E11.65 - Type 2 diabetes mellitus with hyperglycemia, Z79.4 - buttermaker (current) use of insulin Hemoglobin A1c 4 Months E11.9 - Type 2 diabetes mellitus without complications Comprehensive [place]. Panel Fast 4 Months E78.00 - Pure hypercholesterolemia, unspecified Lipid Panel 4 Months E78.00 - Pure hypercholesterolemia, unspecified UA CC w/rflx Micro + Cult 4 Months R30.0 - Dysuria XR forearm LT 2V Today S40.859A - Superficial foreign body of unspecified upper arm, initial encounter Complete Blood Count Auto Diff 4 Months D64.9 - Anemia, unspecified TSH reflex Free T4 4 Months E78.00 - Pure hypercholesterolemia, unspecified Microalbumin, Random (w Creat) 4 Months E11.9 - Type 2 diabetes mellitus without complications Vitamin D 25-OH Total 4 Months E55.9 - Vitamin D deficiency, unspecified Referrals General Surgery Referral S40.550A - Superficial foreign body of unspecified upper arm, initial encounter Coding Level of Care Code Est Pt Level 4 (42142) Complex EM visit Add On G2211 Diagnoses Type 2 diabetes mellitus with hyperglycemia, with long-term current use of insulin E11.65; Z79.4 Diabetes mellitus complication status: with hyperglycemia Diabetes mellitus superintendent marine oil terminal insulin use: with superintendent marine oil terminal use Diabetes mellitus type: type 2 Essential hypertension I10 Atherosclerosis of [place] coronary artery of [place] heart without angina pectoris I25.10 Associated angina: without angina Coronary Disease-Associated Artery/Lesion type: [place] artery [place] vs. transplanted heart: [place] heart Pure hypercholesterolemia E78.00 Gastroesophageal reflux disease without esophagitis K21.9 Esophagitis presence: without esophagitis Vitamin D deficiency E55.9 Benign prostatic hyperplasia with nocturia N40.1; R35.1 Lower urinary tract symptom detail: nocturia Lower urinary tract symptom presence: symptoms present Foreign body of upper arm, left, sequela S40.470I Encounter type: sequela Laterality: left
== END 2024-06-16 14:48 | disposition home or self-care (01) ==
PROVIDERS: Visit Provider Internal Medicine
DX: E11.65 Type 2 diabetes mellitus with hyperglycemia (principal); Z79.4 Long term (current) use of insulin; I10 Essential (primary) hypertension; I25.10 Atherosclerotic heart disease of native coronary artery without angina pectoris; E78.00 Pure hypercholesterolemia, unspecified; K21.9 Gastro-esophageal reflux disease without esophagitis; E55.9 Vitamin D deficiency, unspecified; N40.1 Benign prostatic hyperplasia with lower urinary tract symptoms; R35.1 Nocturia; S40.8 Other superficial injuries of upper arm
CPT/HCPCS: 83036; 99214; G2211

== ENCOUNTER 2024-06-19 07:07 | Outpatient (REF) | payer OTHER, SELFPAY ==
--- NOTE | ~2024-06-19 | XR_ITS ---
EXAMINATION: XR FOREARM, LEFT CLINICAL INFORMATION: Superficial foreign body. COMPARISON: Left wrist radiographs dated 08/16/2013. TECHNIQUE: AP and lateral views of the left forearm were obtained. FINDINGS: Bony alignment and mineralization are normal. No fracture or dislocation seen. There is no left elbow joint effusion. In the anterior superficial soft tissues of the distal left forearm, a 4 mm ovoid radiopaque foreign body is seen. No soft tissue gas is seen. XR/XR forearm LT 2V IMPRESSION: Anteriorly within the distal left forearm superficial soft tissues, a 4 mm ovoid metallic foreign body is noted. The appearance is similar to 08/16/2013. Electronically signed by: Philipp Costa MD 07/13/2024 01:01 PM EDT
[2024-06-19 07:19] LABS: MANUAL DIFF FLAG NO
[2024-06-19 07:37] LABS: Basophils Absolute Auto 0.1 X10*3/uL (0.0-0.2); Basophils Percent Auto 1.3 % (0-2); Eosinophils Absolute Auto 0.5 X10*3/uL (0.0-0.4); Eosinophils Percent Auto 5.9 % (0-4); Hematocrit 39.7 % (42.0-52.0); Hemoglobin 13.3 g/dl (14.0-18.0); Imm Gran Abs Auto 0.03 X10*3/uL (0.00-0.03); Imm Gran Pct Auto 0.3 % (0.0-0.4); Lymphocytes Absolute Auto 3.6 X10*3/uL (1.2-4.9); Lymphocytes Percent Auto 39.5 % (20-40); Mean Corpuscular HGB Conc 33.5 g/dl (31.0-36.0); Mean Corpuscular Hemoglobin 27.5 pg (27.0-33.0); Mean Corpuscular Volume 82.2 fL (80.0-98.0); Mean Platelet Volume 10.4 fL (9.4-12.4); Monocytes Percent Auto 10.8 % (2-11); Neutrophils Absolute Auto 3.8 x10*3/uL (2.0-8.3); Neutrophils Percent Auto 42.2 % (45-73); Platelet Count 279 X10*3/uL (160-400); Red Blood Count 4.83 X10*6/uL (4.60-5.80); Red Cell Distribution Width 14.9 % (11.0-16.0); White Blood Count 9.1 X10*3/uL (4.8-10.8)
[2024-06-19 08:14] LABS: Alanine Aminotransferase 12 U/L (0-40); Albumin Level 4.2 g/dL (3.5-5.0); Alkaline Phosphatase 76 U/L (39-117); Anion Gap 11 (12-20); Aspartate Amino Transferase 16 U/L (5-37); Bilirubin Total 0.2 mg/dL (0.0-1.0); Blood Urea Nitrogen 11 mg/dL (9-16); Calcium 9.9 mg/dL (8.4-10.2); Carbon Dioxide 27 mmol/L (22-29); Chloride 105 mmol/L (96-108); Cholesterol 213 mg/dL (<200); Estimated Glomerular Filt Rate > 60; Glucose Fasting 136 mg/dL (60-99); HDL Cholesterol 54 mg/dL (>40); LDL Cholesterol Calculated 131 mg/dL (<100); Potassium 4.1 mmol/L (3.3-5.1); Sodium 139 mmol/L (135-145); Total Protein 6.9 g/dL (6.5-8.0); Triglycerides 140 mg/dL (<150)
[2024-06-19 08:23] LABS: Prostate Specific Antigen 1.49 ng/mL (<0.05-4.0)
[2024-06-19 08:31] LABS: TSH reflex Free T4 3.25 uIU/mL (0.32-4.0); Vitamin D 25-OH Total 38.3 ng/mL (>30)
[2024-06-19 10:51] LABS: Appearance Urine Clear; Color Urine Yellow; Glucose Urine UA Negative (Negative); Leukocyte Esterase Urine Negative (Negative); Nitrite Urine Negative (Negative); PH 6.5 (5.0-9.0); Specific Gravity - Urine 1.015 (1.005-1.025); Urine Blood Negative (Negative); Urine Ketones Negative (Negative); Urine Protein Negative (Neg-Trace)
[2024-06-19 11:05] LABS: Creatinine Urine 89.43 mg/dL; Microalbum/Creatinine Ratio Ur 8.9 ug/mg cr (<30)
== END 2024-06-19 07:08 | disposition home or self-care (01) ==
LOC: HO.XRAY 07:07
PROVIDERS: PCP Internal Medicine; Visit Provider Internal Medicine
DX: R30.0 Dysuria (principal); D64.9 Anemia, unspecified; E78.00 Pure hypercholesterolemia, unspecified; E55.9 Vitamin D deficiency, unspecified; N40.0 Benign prostatic hyperplasia without lower urinary tract symptoms; E11.9 Type 2 diabetes mellitus without complications; S40.859A Superficial foreign body of unspecified upper arm, initial encounter
CPT/HCPCS: 36415; 73090; 80053; 80061; 81003; 82043; 82306; 82570; 84153; 84443; 85025

== ENCOUNTER 2024-06-27 09:57 | Outpatient (AMB) | payer SELFPAY ==
--- NOTE | 2024-06-27 10:28 | A.OFFVIS_ITS ---
Vital Signs 06/27/24 10:31 Height 5 ft 8 in Weight 162 lb BMI 24.6 BP 147/89 H Blood Pressure Location Rt brachial Position Sitting Pulse 69 Intake Visit Reasons: Foreign body~ Lt forearm Intake Note: Patient referred by pcp Dr. Davis for foreign body on Lt forearm. Metal stuck after 10yrs. Patient c/o: becoming bothersome. Feels like it has moved position. Mill Platform Supervisor Required: Yes Mill Platform Supervisor Name: Nenita SAMUELS Accompanied by: Self / Same As Patient Allergies anesthesia from wisdom tooth e Allergy (Intermediate, Uncoded 06/27/24 10:30) pt woke up in hospital, does not remember reaction Medication List - Last Reconciled 06/27/24 by Sharath Eduardo MD amlodipine 10 mg PO DAILY aspirin 81 mg PO DAILY 90 days atorvastatin 80 mg PO DAILY 90 days blood sugar diagnostic (FreeStyle Lite Strips) test blood glucose blood-glucose meter (FreeStyle Lite Meter kit) check blood glucose daily cholecalciferol (vitamin D3) 25 mcg PO DAILY ezetimibe 10 mg PO DAILY 90 days famotidine (Pepcid) 20 mg PO DAILY PRN flash glucose scanning reader (FreeStyle Brian 2 [place]) As directed flash glucose sensor (FreeStyle Brian 2 Sensor kit) As directed every 2 weeks hydrochlorothiazide 25 mg PO DAILY 90 days insulin glargine (Lantus Solostar U-100 Insulin) 20 units (0.2 mL) subcut QPM 30 days lancets (FreeStyle Lancets) test blood glucose daily metformin 1,000 mg PO BID 90 days ondansetron 4 mg PO Q8H PRN pen needle, diabetic (Comfort EZ Pen [place]) Use 1 needle for 90 day pen needle, diabetic (BD Jacinda 2nd Gen Pen Needle) Use 1 needel once a day for 90 days tamsulosin 0.4 mg PO BEDTIME 30 days HPI Comments Details: Patient presents with longstanding history of foreign body in his left volar aspect of the mid forearm. He would like to have it excised. He is becoming more symptomatic. He has never had such issues before. Chart was reviewed and patient evaluated [facility] Medical History Overweight (BMI 25.0-29.9) Coronary atherosclerosis Pure hypercholesterolemia Nicotine dependence, cigarettes, uncomplicated Hypercalcemia Vitamin D deficiency BPH (benign prostatic hyperplasia) Diabetes mellitus (~2020) Fatigue Urinary dribbling Atherosclerotic cardiovascular disease CAD (coronary artery disease) (~2017) Essential hypertension Surgical History History of right breast biopsy History of heart artery stent Family History Mother CVD (cardiovascular disease) Father Diabetes Hypertension Social History Household Members: Spouse Housing: Apartment Alcohol intake: current Alcohol intake frequency: a few times a month Alcohol type: beer Patient Tobacco Use Status: Current everyday Tobacco user Tobacco use type: Cigarette Cigarette Packs Per Day: 1 Cigarettes Per Day: 20 Years Smoked: 40 e-Cigarette/Vaping Use: Never Used Second Hand Smoke Exposure: Yes service: No Current occupational status: unemployed Cognitive needs: No Hearing needs: No Vision needs: Yes Physical Exam Vital Signs: Last Vital Signs Pulse 69 06/27/24 10:31 BP 147/89 H 06/27/24 10:31 BMI result Body Mass Index 24.6 Extrem Other: Palpable foreign body in subcutaneous tissue of volar aspect of left mid forearm. Extremities grossly neurovascularly intact. Foreign body measures approximately 1/2 x 1/2 cm. Office Procedures Excision Details: Risks, benefits, alternatives of excision of foreign body volar aspect left forearm reviewed with the patient and included but not limited to bleeding, infection, unable to retrieved, numbness, pain, scarring the patient wished to proceed. All questions answered. Consent signed. After appropriate Marcaine and positioning, patient underwent 1% lidocaine and Betadine prep and a longitudinal incision was made over the palpable soft tissue mass which was uneventfully excised from surrounding soft tissue. Specimen sent to pathology. Wounds irrigated, secured hemostasis, and closed using interrupted inverted dermal 3-0 Vicryl sutures followed by Steri-Strips and sterile dressings. Patient tolerated procedure well. [id number]-[id number]/arms/legs 0.6-1cm Procedure code (CPT) selection complete Office Meds lidocaine 1 %-epinephrine 1:100,000 injection solution Performing Provider: Sharath Eduardo MD Performing Location: [facility] [place] [facility] Administered by: Sharath Eduardo MD on 06/27/24 11:19 Dose Route Admin Location Dispensed Lot Number Expiration Date NDC Monitor Car Operator 20 mL Infiltration 20 mL Assessment & Plan Assessment & Plan (1) Foreign body of upper arm: Code(s): S40.859A - Superficial foreign body of unspecified upper arm, initial encounter Category: Surgical Qualifiers: Encounter type: sequela Laterality: left Qualified Code(s): S40.852S - Superficial foreign body of left upper arm, sequela Plan: Patient was given local instructions including avoiding strenuous activities, may shower in 2 days removing only outside dressing leave the Steri-Strips intact, I will leave or Motrin or Tylenol p.r.n. pain, ice to wound periodically and will see me as directed or p.r.n.. All questions answered. Orders: Orders AMB Excision Today S40.852S - Superficial foreign body of left upper arm, sequela Medications: New lidocaine-epinephrine 1 %-1:100,000 30 mL Infiltration ONCE 30 mL 0RF S40.852S - Superficial foreign body of left upper arm, sequela Coding Level of Care Code New Pt Level 5 (82742) Diagnoses Foreign body of upper arm, left, sequela S40.852S Encounter type: sequela Laterality: left CPT Codes Trunk/Arms/Legs - CPT: 86873-brpgh/arms/legs 0.6-1cm ([id number])
[2024-06-27 10:31] VITALS: BP 147/89; PULSE 69; BMI 24.6
== END 2024-06-27 11:24 | disposition home or self-care (01) ==
PROVIDERS: PCP Internal Medicine; Referring Provider Internal Medicine; Visit Provider Surgery
DX: S40.8 Other superficial injuries of upper arm (principal)
CPT/HCPCS: 10120; 99204

== ENCOUNTER 2024-06-27 09:57 | Outpatient (REF) | payer MEDICAID, SELFPAY | END 2024-06-27 09:58 | disposition home or self-care (01) | LOC: HO.LNP 09:57 | PROVIDERS: PCP Internal Medicine; Referring Provider Internal Medicine; Visit Provider Surgery | DX: S40.8 Other superficial injuries of upper arm (principal) | CPT/HCPCS: 10120; 88304; 99202 ==

== ENCOUNTER 2024-07-04 10:01 | Outpatient (AMB) | payer SELFPAY ==
[2024-07-04 10:14] VITALS: BP 132/73; PULSE 70; BMI 24.5
--- NOTE | 2024-07-04 10:14 | A.OFFVIS_ITS ---
Vital Signs 07/04/24 10:14 Height 5 ft 8 in Weight 161 lb BMI 24.5 BP 132/73 Blood Pressure Location Rt brachial Position Sitting Pulse 70 Intake Visit Reasons: s/p Foreign body removal ~ Lt forearm Intake Note: Patient here to f/u WLE foreign body on Lt inner forearm on 06-27-2024. Patient c/o: site healing well. Keeping it covered with bandaid helps. Developmental Behavioral Physician Required: No Accompanied by: Self / Same As Patient Allergies anesthesia from wisdom tooth e Allergy (Intermediate, Uncoded 07/04/24 10:16) pt woke up in hospital, does not remember reaction HPI Comments Details: Patient presents for follow-up. He has no wound issues or complaints. [facility] Medical History Overweight (BMI 25.0-29.9) Coronary atherosclerosis Pure hypercholesterolemia Nicotine dependence, cigarettes, uncomplicated Hypercalcemia Vitamin D deficiency BPH (benign prostatic hyperplasia) Diabetes mellitus (~2020) Fatigue Urinary dribbling Atherosclerotic cardiovascular disease CAD (coronary artery disease) (~2017) Essential hypertension Surgical History History of right breast biopsy History of heart artery stent Family History Mother CVD (cardiovascular disease) Father Diabetes Hypertension Social History Household Members: Spouse Housing: Apartment Alcohol intake: current Alcohol intake frequency: a few times a month Alcohol type: beer Patient Tobacco Use Status: Current everyday Tobacco user Tobacco use type: Cigarette Cigarette Packs Per Day: 1 Cigarettes Per Day: 20 Years Smoked: 40 e-Cigarette/Vaping Use: Never Used Second Hand Smoke Exposure: Yes service: No Current occupational status: unemployed Cognitive needs: No Hearing needs: No Vision needs: Yes Physical Exam Vital Signs: Last Vital Signs Pulse 70 07/04/24 10:14 BP 132/73 07/04/24 10:14 BMI result Body Mass Index 24.5 Extrem Other: Surgical wound site healing very well. Assessment & Plan Assessment & Plan (1) Postop check: Code(s): Z09 - Encounter for follow-up examination after completed treatment for conditions other than malignant neoplasm Category: Surgical Plan Patient was been given local instructions, and will follow-up p.r.n.. All questions answered. Coding Level of Care Code Global (40642) Diagnoses Postop check Z09
== END 2024-07-04 10:36 | disposition home or self-care (01) ==
PROVIDERS: PCP Internal Medicine; Visit Provider Surgery
DX: Z09 Encounter for follow-up examination after completed treatment for conditions other than malignant neoplasm (principal)
CPT/HCPCS: 99024

== ENCOUNTER → 2024-07-04 10:01 | Outpatient (BNVA) | payer SELFPAY | PROVIDERS: PCP Internal Medicine; Visit Provider Surgery | DX: Z09 Encounter for follow-up examination after completed treatment for conditions other than malignant neoplasm (principal) | CPT/HCPCS: 99212 ==

== ENCOUNTER 2024-10-17 13:42 | Outpatient (AMB) | payer OTHER, SELFPAY ==
[2024-10-17 13:56] VITALS: BP 136/84; PULSE 94; O2SAT 96; BMI 24.2
--- NOTE | 2024-10-17 13:56 | A.OFFPC_ITS ---
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 Required: No Accompanied by: Self / Same As Patient Allergies anesthesia from wisdom tooth e Allergy (Intermediate, Uncoded 10/17/24 14:39) pt woke up in hospital, does not remember reaction Medication List - Last Reconciled 10/17/24 by Jethro Davis MD amlodipine 10 mg PO DAILY aspirin 81 mg PO DAILY 90 days atorvastatin 80 mg PO DAILY 90 days blood sugar diagnostic (FreeStyle Lite Strips) test blood glucose blood-glucose meter (FreeStyle Lite Meter kit) check blood glucose daily cholecalciferol (vitamin D3) 25 mcg PO DAILY ezetimibe 10 mg PO DAILY 90 days famotidine (Pepcid) 20 mg PO DAILY PRN flash glucose scanning reader (PerfusixStyle Brian 2 [place]) As directed flash glucose sensor (FreeStyle Brian 2 Sensor kit) As directed every 2 weeks hydrochlorothiazide 25 mg PO DAILY 90 days insulin glargine (Lantus Solostar U-100 Insulin) 20 units (0.2 mL) subcut QPM 30 days lancets (FreeStyle Lancets) test blood glucose daily metformin 1,000 mg PO BID 90 days ondansetron 4 mg PO Q8H PRN pen needle, diabetic (Comfort EZ Pen [place]) Use 1 needle for 90 day pen needle, diabetic (BD Jacinda 2nd Gen Pen Needle) Use 1 needel once a day for 90 days tamsulosin 0.4 mg PO BEDTIME 30 days Tobacco use date assessed: 10/17/24 Dental Screening Dental Screen Date: 10/17/24 Did you have a dental visit in the last 12 months?: No Did you have a dental problem in the last 6 months where you did not have access to dental care?: No Was dental information given to patient?: No HPI 4 Month F/U HPI Details Patient comes in today for his follow-up visit States that he feels okay He denies any headaches or dizziness Denies any chest pains, no increased shortness of breath No nausea/vomiting, no abdominal pain No change in bowel habits noted Needs his Aspirin 81 mg Rx refilled He has no follow-up labs done recently but states that he got his labs done a few days after his last visit in early June 2024 - would like to know how his labs done back then came out [facility] Medical History Overweight (BMI 25.0-29.9) Coronary atherosclerosis Pure hypercholesterolemia Nicotine dependence, cigarettes, uncomplicated Hypercalcemia Vitamin D deficiency BPH (benign prostatic hyperplasia) Diabetes mellitus (~2020) Fatigue Urinary dribbling Atherosclerotic cardiovascular disease CAD (coronary artery disease) (~2017) Essential hypertension Surgical History History of right breast biopsy History of heart artery stent Family History Mother CVD (cardiovascular disease) Father Diabetes Hypertension Social History Household Members: Spouse Housing: Apartment Alcohol intake: current Alcohol intake frequency: a few times a month Alcohol type: beer Patient Tobacco Use Status: Current everyday Tobacco user Tobacco use type: Cigarette Cigarette Packs Per Day: 1 Cigarettes Per Day: 20 Years Smoked: 40 e-Cigarette/Vaping Use: Never Used Second Hand Smoke Exposure: Yes service: No Current occupational status: unemployed Cognitive needs: No Hearing needs: No Vision needs: Yes Questionnaire PHQ-9 Over the last 2 weeks, how often have you been bothered by any of the following problems? 1. Little interest or pleasure in doing things: not at all 2. Feeling down, depressed, or hopeless: not at all 3. Trouble falling or staying asleep, or sleeping too much: not at all 4. Feeling tired or having little energy: not at all 5. Poor appetite or overeating: not at all 6. Feeling bad about yourself - or that you are a failure or have let yourself or your family down: not at all 7. Trouble concentrating on things, such as reading the newspaper or watching television: not at all 8. Moving or speaking so slowly that other people could have noticed. Or the opposite - being so fidgety or restless that you have been moving around a lot more than usual: not at all 9. Thoughts that you would be better off or of hurting yourself in some way: not at all Total score: 0 Depression Screening Interpretation: Negative Depression Screening Done: Yes 81488 - PHQ-9 Billing: Yes Source: Developed by Drs. Vaibhav Delgado, Karol Go, Zak Rodriguez and colleagues, with an educational daniel from [employer]. Thrive Questionnaire Date Thrive assessed: 10/17/24 I am a: Patient What is your living situation today?: I have a steady place to live Within the past 12 months, did the food you bought not last and you didn't have the money to get more?: Never true Within the past 12 months, did you worry whether your food would run out before you got money to buy more?: Never true Do you have trouble paying for medicines?: No Do you have trouble getting transportation to medical appointments?: No Do you have trouble paying your heating and electricity bill?: No Do you have trouble taking care of your child, family member or friend?: No Do you have trouble with day-to-day activities such as bathing, preparing meals, shopping, managing finances, etc.?: No Are you currently unemployed and looking for a job?: No Are you interested in more education?: No Please select the resources that you would like help with: None Currently or been in a relationship where the following occur: No concerns reported THRIVE Score: 0 AUDIT C Alcohol Use Questionnaire (AUDIT-C) 1. How often do you have a drink containing alcohol?: 4 or more times a week 2. How many drinks containing alcohol do you have on a typical day when you are drinking?: 1 or 2 3. How often do you have six or more drinks on one occasion?: Never Total Score: 4 Score Reviewed/Action Taken: Yes MAMADOU-7 AMB Questionnaire MAMADOU-7 Date MAMADOU - 7 assessed: 10/17/24 Feeling nervous, anxious, or on edge: 0 = Not at all Not being able to stop or control worryin = Not at all Worrying too much about different things: 0 = Not at all Trouble relaxin = Not at all Being so restless that it is hard to sit still: 0 = Not at all Becoming easily annoyed or irritable: 0 = Not at all Feeling afraid as if something awful might happen: 0 = Not at all Total MAMADOU-7 score (0-4 normal; 5-9 mild; 10-14 moderate; 15-21 severe): 0 Source: Developed by Drs. Vaibhav Delgado, Karol Go, Zak Rodriguez and colleagues, with an educational daniel from [employer]. Review of Systems Const Denies fatigue, Denies fever(s) and Denies headache(s) ENT Denies dysphagia, Denies dizziness, Denies otalgia, Denies headache(s), Denies neck pain, Denies odynophagia and Denies sore throat Card Denies chest pain, Denies palpitations and Denies dyspnea Resp Denies cough, Denies dyspnea and Denies wheezing GI Denies abdominal pain, Denies constipation, Denies dysphagia, Denies heartburn, Denies diarrhea, Denies nausea, Denies odynophagia and Denies vomiting Denies dysuria, Denies nocturia and Denies urinary frequency Musc Denies back pain, Denies arthralgias and Denies neck pain Skin/Breast Denies rash Neuro Denies dizziness and Denies headache(s) Endo Denies fatigue and Denies palpitations Aller/Immun Denies wheezing Physical exam (Primary Care) Vital Signs: Last Vital Signs Pulse 94 10/17/24 13:56 BP 136/84 10/17/24 13:56 Pulse Ox 96 10/17/24 13:56 Oxygen Delivery Method Room Air 10/17/24 13:56 BMI result Body Mass Index 24.2 Tobacco/Smoking Status: Tobacco use Status Tobacco use date assessed 10/17/24 10/17/24 14:02 Patient Tobacco Use Status Current everyday Tobacco 10/17/24 14:02 Tobacco use type Cigarette 10/17/24 14:02 e-Cigarette/Vaping Use Never Used 10/17/24 14:02 PHQ-9: PHQ-9 Score PHQ-9: Total score 0 10/17/24 14:36 Depression Screening Interpretation: Negative Thrive Assessment: Date of Thrive Assessment Date Thrive assessed 10/17/24 10/17/24 14:02 Currently or been in a relationship where the following occur: No concerns reported Const General: no acute distress and alert HENMT Ears: TM's normal bilaterally and EAC's normal Throat: Yes posterior oropharynx normal and Yes tonsils normal (no TP congestion) Neck Neck: Yes no lymphadenopathy and Yes supple Thyroid: Thyroid normal Resp Auscultation: clear to auscultation bilaterally, no rales and no wheezes Cardio Rate: regular rate Rhythm: regular rhythm Heart sounds: no murmurs GI Palpation (GI): Soft to palpation and nontender Auscultation: normal bowel sounds General: Yes no CVA tenderness Back/Spine/Pelvis Back: no CVA tenderness Thoracic/Lumbar Spine: No lumbar spinal tenderness Skin Rashes: no rashes Extrem General: Yes no clubbing, cyanosis or edema Results Reviewed Results Reviewed: Laboratory Tests 06/16/24 06/19/24 06/19/24 13:33 07:16 09:34 WBC 9.1 Hgb 13.3 L Hct 39.7 L Plt Count 279 Sodium 139 Potassium 4.1 Creatinine 0.83 Estimated GFR > 60 Fasting Glucose 136 H Hgb A1c (Clinic) 6.0 Calcium 9.9 AST 16 ALT 12 Triglycerides 140 Cholesterol 213 H LDL Cholesterol, Calc 131 H HDL Cholesterol 54 Prostate Specific Ag 1.49 25-OH Vitamin D Total 38.3 TSH 3.25 Ur Specific [place] 1.015 Urine Protein Negative Urine Glucose (UA) Negative Urine Blood Negative Urine Nitrite Negative Ur Leukocyte Esterase Negative Microalb/Creat Ratio 8.9 Coding Level of Care Code Est Pt Level 4 (40667) Diagnoses Type 2 diabetes mellitus with hyperglycemia, with long-term current use of insulin E11.65; Z79.4 Diabetes mellitus type: type 2 Diabetes mellitus rn long term care insulin use: with rn long term care use Diabetes mellitus complication status: with hyperglycemia Essential hypertension I10 Atherosclerosis of [place] coronary artery of [place] heart without angina pectoris I25.10 Coronary Disease-Associated Artery/Lesion type: [place] artery [place] vs. transplanted heart: [place] heart Associated angina: without angina Pure hypercholesterolemia E78.00 Gastroesophageal reflux disease without esophagitis K21.9 Esophagitis presence: without esophagitis Vitamin D deficiency E55.9 Benign prostatic hyperplasia with nocturia N40.1; R35.1 Lower urinary tract symptom presence: symptoms present Lower urinary tract symptom detail: nocturia Additional Codes PHQ-9 - 83582 - PHQ-9 Billing: Yes ([id number]) Assessment & Plan Assessment & Plan (1) Diabetes mellitus: Onset Date: ~2020 Comment: DM2 - dx 03/2021 Code(s): E11.9 - Type 2 diabetes mellitus without complications Category: Medical Qualifiers: Diabetes mellitus type: type 2 Diabetes mellitus residential insulin use: with rn long term care use Diabetes mellitus complication status: with hyperglycemia Qualified Code(s): E11.65 - Type 2 diabetes mellitus with hyperglycemia; Z79.4 - exterminator termite (current) use of insulin Plan: His in-office HgbA1c was at 6.0% at his last visit in June 2024 (was previously at 6.6% a few months ago) - goal is <7.0% Reinforced diabetic diet Continue Metformin 1000 mg BID and Lantus Solostar 20 units Q HS (2) Essential hypertension: Code(s): I10 - Essential (primary) hypertension Category: Medical Plan: Reinforced low sodium diet - goal is systolic BP of 120 mm or less Continue Hydrochlorothiazide 25 mg Q AM and Amlodipine 10 mg QD Patient is reminded to continue monitoring his blood pressure regularly (3) Coronary atherosclerosis: Comment: S/P STEMI - RCA stented in 01/2018 Code(s): I25.10 - Atherosclerotic heart disease of [place] coronary artery without angina pectoris Category: Medical Qualifiers: Coronary Disease-Associated Artery/Lesion type: [place] artery [place] vs. transplanted heart: [place] heart Associated angina: without angina Qualified Code(s): I25.10 - Atherosclerotic heart disease of [place] coronary artery without angina pectoris Plan: S/P STEMI with stenting of RCA in 01/2018 Patient is currently asymptomatic from cardiology standpoint Continue Aspirin 81 mg QD and aggressive risk factor modification Follow up with cardiology as scheduled (4) Pure hypercholesterolemia: Code(s): E78.00 - Pure hypercholesterolemia, unspecified Category: Medical Plan: Results of his labs done back in June 2024 reviewed and discussed with patient Reinforced low cholesterol diet - goal is LDL cholesterol of <70 mg/dl due to his diabetes and CAD Dx Continue Atorvastatin 80 mg QD and Ezetimibe 10 mg QD Will recheck his labs and fasting lipids in 4 months for follow up (5) GERD (gastroesophageal reflux disease): Code(s): K21.9 - Gastro-esophageal reflux disease without esophagitis Category: Medical Qualifiers: Esophagitis presence: without esophagitis Qualified Code(s): K21.9 - Gastro-esophageal reflux disease without esophagitis Plan: Dietary restrictions reinforced Continue Famotidine 20 mg QD (6) Vitamin D deficiency: Code(s): E55.9 - Vitamin D deficiency, unspecified Category: Medical Plan: Continue Vitamin D3 1000 units QD (7) BPH (benign prostatic hyperplasia): Code(s): N40.0 - Benign prostatic hyperplasia without lower urinary tract symptoms Category: Medical Qualifiers: Lower urinary tract symptom presence: symptoms present Lower urinary tract symptom detail: nocturia Qualified Code(s): N40.1 - Benign prostatic hyperplasia with lower urinary tract symptoms; R35.1 - Nocturia Plan: Continue Tamsulosin 0.4 mg Q HS Follow up with urology as scheduled Plan Follow up in 4 months Orders: Orders Hemoglobin A1c 4 Months E11.9 - Type 2 diabetes mellitus without complications Microalbumin, Random (w Creat) 4 Months E11.9 - Type 2 diabetes mellitus without complications TSH reflex Free T4 4 Months E78.00 - Pure hypercholesterolemia, unspecified Complete Blood Count Auto Diff 4 Months D64.9 - Anemia, unspecified Lipid Panel 4 Months E78.00 - Pure hypercholesterolemia, unspecified Comprehensive [place]. Panel Fast 4 Months E78.00 - Pure hypercholesterolemia, unspecified UA CC w/rflx Micro + Cult 4 Months R30.0 - Dysuria Vitamin D 25-OH Total 4 Months E55.9 - Vitamin D deficiency, unspecified Medications: Refilled aspirin 81 mg PO DAILY 90 days 90 tabs 1RF
== END 2024-10-17 14:45 | disposition home or self-care (01) ==
PROVIDERS: PCP Internal Medicine; Visit Provider Internal Medicine
DX: E11.65 Type 2 diabetes mellitus with hyperglycemia (principal); Z79.4 Long term (current) use of insulin; I10 Essential (primary) hypertension; I25.10 Atherosclerotic heart disease of native coronary artery without angina pectoris; E78.00 Pure hypercholesterolemia, unspecified; K21.9 Gastro-esophageal reflux disease without esophagitis; E55.9 Vitamin D deficiency, unspecified; N40.1 Benign prostatic hyperplasia with lower urinary tract symptoms; R35.1 Nocturia

== ENCOUNTER → 2024-10-17 13:42 | Outpatient (BNVA) | payer OTHER, SELFPAY | PROVIDERS: PCP Internal Medicine; Visit Provider Internal Medicine | DX: E11.65 Type 2 diabetes mellitus with hyperglycemia (principal); I10 Essential (primary) hypertension; I25.10 Atherosclerotic heart disease of native coronary artery without angina pectoris; E78.00 Pure hypercholesterolemia, unspecified; K21.9 Gastro-esophageal reflux disease without esophagitis; E55.9 Vitamin D deficiency, unspecified; N40.1 Benign prostatic hyperplasia with lower urinary tract symptoms; R35.1 Nocturia; Z79.4 Long term (current) use of insulin | CPT/HCPCS: 96127; 99212 ==

== ENCOUNTER 2024-11-30 11:37 | Outpatient (AMB) | payer OTHER, SELFPAY ==
[2024-11-30 12:38] VITALS: BP 150/80; PULSE 66; BMI 23.8
--- NOTE | 2024-11-30 12:38 | MHC.OFFVIS ---
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 Associate Required: Yes Warehouse Distribution Associate Name: CHASTIY [id number] Allergies anesthesia from wisdom tooth e Allergy (Intermediate, Uncoded 10/17/24 14:39) pt woke up in hospital, does not remember reaction Medication List - Last Reconciled 11/30/24 by Jerry Osman MD amlodipine 10 mg PO DAILY aspirin 81 mg PO DAILY 90 days atorvastatin 80 mg PO DAILY 90 days blood sugar diagnostic (FreeStyle Lite Strips) test blood glucose blood-glucose meter (FreeStyle Lite Meter kit) check blood glucose daily cholecalciferol (vitamin D3) 25 mcg PO DAILY ezetimibe 10 mg PO DAILY 90 days famotidine (Pepcid) 20 mg PO DAILY PRN flash glucose scanning reader (Hydro-RunStyle Brian 2 [place]) As directed flash glucose sensor (FreeStyle Brian 2 Sensor kit) As directed every 2 weeks hydrochlorothiazide 25 mg PO DAILY 90 days insulin glargine (Lantus Solostar U-100 Insulin) 20 units (0.2 mL) subcut QPM 30 days lancets (FreeStyle Lancets) test blood glucose daily metformin 1,000 mg PO BID 90 days ondansetron 4 mg PO Q8H PRN pen needle, diabetic (Comfort EZ Pen [place]) Use 1 needle for 90 day pen needle, diabetic (BD Jacinda 2nd Gen Pen Needle) Use 1 needel once a day for 90 days tamsulosin 0.4 mg PO BEDTIME 30 days HPI Comments Details: Ren returns for follow-up regarding coronary artery disease. He has a history of ST-elevation myocardial infarction in 2018. He had right coronary artery stenting. He also had some disease in the circumflex that was not intervened upon. Then had hematemesis and at that time Plavix was stopped. Since last seen, no new concerns. Unfortunately, still smokes. However, no cardiac symptoms. [facility] Medical History Overweight (BMI 25.0-29.9) Coronary atherosclerosis Pure hypercholesterolemia Nicotine dependence, cigarettes, uncomplicated Hypercalcemia Vitamin D deficiency BPH (benign prostatic hyperplasia) Diabetes mellitus (~2020) Fatigue Urinary dribbling Atherosclerotic cardiovascular disease CAD (coronary artery disease) (~2017) Essential hypertension Surgical History History of right breast biopsy History of heart artery stent Family History Mother CVD (cardiovascular disease) Father Diabetes Hypertension Social History Household Members: Spouse Housing: Apartment Alcohol intake: current Alcohol intake frequency: a few times a month Alcohol type: beer Patient Tobacco Use Status: Current everyday Tobacco user Tobacco use type: Cigarette Cigarette Packs Per Day: 1 Cigarettes Per Day: 20 Years Smoked: 40 e-Cigarette/Vaping Use: Never Used Second Hand Smoke Exposure: Yes service: No Current occupational status: unemployed Cognitive needs: No Hearing needs: No Vision needs: Yes Review of Systems Const Denies weakness ENT Denies dizziness Card Denies chest pain, Denies chest pain with activity, Denies syncope, Denies rapid heart rate, Denies pedal edema, Denies edema, Denies leg edema, Denies lightheadedness, Denies palpitations, Denies dyspnea, Denies dyspnea on exertion and Denies orthopnea Resp Denies cough, Denies dyspnea and Denies dyspnea on exertion GI Denies hematochezia and Denies change in stool character Musc Denies abnormal gait, Denies muscle cramps, Denies muscle weakness, Denies numbness, Denies radiating pain into limb and Denies tingling Neuro Denies abnormal gait, Denies dizziness, Denies syncope, Denies numbness, Denies tingling and Denies weakness Endo Denies palpitations Physical Exam Vital Signs: Last Vital Signs Pulse 66 11/30/24 12:38 BP 150/80 H 11/30/24 12:38 BMI result Body Mass Index 23.8 Const General: comfortable and no acute distress Orientation/consciousness: patient oriented x3 HEENT Other: Unremarkable Head: Yes normal to inspection Neck Neck: Yes normal visual inspection Chest Chest palpation & inspection: normal inspection of the chest Resp Auscultation: clear to auscultation bilaterally Cardio Palpation: normal PMI Heart sounds: S1 normal heart sound present, S2 normal heart sound present, no gallops, no murmurs and no rubs GI Palpation (GI): Soft to palpation Back/Spine/Pelvis Other: unremarkable Skin General skin exam: no rashes or lesions noted Neuro General: patient oriented x3 Extrem General: Yes normal to inspection Psych Mental Status: mental status grossly normal Office Procedures EKG Details: EKG with underlying sinus rhythm at 66/Min; incomplete right bundle-branch block pattern; [place] [id number], Complete Assessment & Plan Assessment & Plan (1) Atherosclerotic cardiovascular disease: Code(s): I25.10 - Atherosclerotic heart disease of [place] coronary artery without angina pectoris Category: Medical Plan: Cardiac catheterization 2017-left main-normal; mid LAD 30%; proximal circumflex 60%; proximal RCA 99%, status post ELENITA Echocardiogram 2019-normal LVEF, 55-60%; no wall motion abnormalities; no significant valvular pathology. Continue aspirin indefinitely. No recurrent angina. (2) Essential hypertension: Code(s): I10 - Essential (primary) hypertension Category: Medical Plan: Slightly high blood pressure today. Listed to be on amlodipine, hydrochlorothiazide. With diabetes, not clear why he is not on PATO inhibitor or ARB. (3) Other and unspecified hyperlipidemia: Code(s): E78.5 - Hyperlipidemia, unspecified Category: Medical Plan: On atorvastatin and Zetia. Variable lipid levels. In 2022, LDL was 72 mg/dL burden last year, 131 mg/dL. Prior to this, almost all the LDL levels are in the 60s to 70s for the most part. May recheck in due course through PCP. (4) Type 2 diabetes mellitus with unspecified complications: Code(s): E11.8 - Type 2 diabetes mellitus with unspecified complications Category: Medical Plan: On insulin, metformin. Last hemoglobin A1c is 6%. Well controlled. (5) Smoking: Code(s): F17.200 - Nicotine dependence, unspecified, uncomplicated Category: Social Hx Plan: Complete cessation. Coding Level of Care Code Est Pt Level 4 (33749) Diagnoses Atherosclerotic cardiovascular disease I25.10 Essential hypertension I10 Other and unspecified hyperlipidemia E78.5 Type 2 diabetes mellitus with unspecified complications E11.8 Smoking F17.200 CPT Codes EKG - CPT: 14543-[place], Complete ([id number])
== END 2024-11-30 13:00 | disposition home or self-care (01) ==
PROVIDERS: Visit Provider Internal Medicine
DX: I25.10 Atherosclerotic heart disease of native coronary artery without angina pectoris (principal); I10 Essential (primary) hypertension; E78.5 Hyperlipidemia, unspecified; E11.8 Type 2 diabetes mellitus with unspecified complications; F17.200 Nicotine dependence, unspecified, uncomplicated
CPT/HCPCS: 93010; 99214

== ENCOUNTER → 2024-11-30 11:37 | Outpatient (BNVA) | payer OTHER, SELFPAY | PROVIDERS: Visit Provider Internal Medicine | DX: I25.10 Atherosclerotic heart disease of native coronary artery without angina pectoris (principal); I10 Essential (primary) hypertension; E78.5 Hyperlipidemia, unspecified; E11.8 Type 2 diabetes mellitus with unspecified complications; F17.210 Nicotine dependence, cigarettes, uncomplicated | CPT/HCPCS: 93005; 99212 ==

== ENCOUNTER 2024-12-09 18:56 | Emergency (ER) | payer OTHER, SELFPAY ==
--- NOTE | ~2024-12-09 | CT_ITS ---
CLINICAL HISTORY: fall +head strke CT maxillofacial without contrast Comparison: Head CT from same day. Findings: Acute comminuted mild bilateral nasal bone fractures. Majority of the nasal septum deviates to the right. No displaced mandible fracture. Devitalized bone of the mandible and portions of the maxilla secondary to absent teeth. Lucencies noted about the to remaining maxillary teeth. Degenerative changes include the temporomandibular joints without dislocation. No acute intraconal stranding in this noncontrast study. No acute appearing or suspicious air-fluid levels of the paranasal sinuses. Imaged mastoid air cells are well aerated. Vascular calcifications noted. Please refer to separate report for included brain. Please refer to separate report for included cervical spine. IMPRESSION: Mild nasal bone fractures with anterior blunting are favored to be acute given soft tissue swelling. This document has been electronically signed by: Adithya Pool MD on 12/09/2024 20:21:14
--- NOTE | ~2024-12-09 | CT_ITS ---
CLINICAL HISTORY: fall +head strke CT cervical spine without contrast Comparison: None Findings: Enthesopathy of the occipital protuberance without acute fracture. No acute fracture of the cervical spine. Mild vertebral height losses appear old chronic including C3 through C6. Facet arthropathy is multilevel with sclerosis and hypertrophy particularly in the right at C4-C5 where there is mild anterolisthesis. Straightening of the cervical lordosis. Disc osteophyte complexes with mild spinal canal stenosis including C4-C5 and C5-C6, where there is moderate to marked foraminal narrowing. Vascular calcifications noted. No paraspinal hematoma. Minimal scarring of the imaged lung apices. Subcutaneous edema is noted dependently. IMPRESSION: 1. No acute fracture of the cervical spine. 2. Multifocal facet arthropathy. 3. Findings of spinal stenosis including foraminal narrowing at C4-C5 and C5-C6. This document has been electronically signed by: Adithya Pool MD on 12/09/2024 20:02:54
--- NOTE | ~2024-12-09 | CT_ITS ---
CLINICAL HISTORY: fall +head strke CT head without contrast Comparison: None Findings: No acute intracranial hemorrhage. No midline shift or hydrocephalus. Mild volume loss is generalized. Likely mild white matter lesions are nonspecific and likely related to small-vessel ischemic disease. Mild basal ganglia mineralization noted. Vascular calcifications noted. Partially empty sella by CT. Mild fluid and mucosal thickening of the paranasal sinuses. Imaged mastoid air cells are well aerated. Mild nasal bone fractures with anterior blunting are favored to be acute in the [id number]. Otherwise, no acute skull fracture. IMPRESSION: 1. No acute intracranial abnormality by CT. 2. Mild nasal bone blunting is likely acute. This document has been electronically signed by: Adithya Pool MD on 12/09/2024 20:25:10
[2024-12-09 18:59] VITALS: BP 142/84; PULSE 81; RESP 18; TEMP 36.9; O2SAT 96; BMI 24.4
--- NOTE | 2024-12-09 19:31 | MHC.EDTECH ---
Patient brought into triage area,labs drawn and sent to lab
[2024-12-09 19:36] LABS: MANUAL DIFF FLAG NO
[2024-12-09 19:38] LABS: Basophils Absolute Auto 0.1 X10*3/uL (0.0-0.2); Basophils Percent Auto 0.9 % (0-2); Eosinophils Absolute Auto 0.1 X10*3/uL (0.0-0.4); Eosinophils Percent Auto 1.2 % (0-4); Hematocrit 40.1 % (42.0-52.0); Hemoglobin 13.5 g/dl (14.0-18.0); Imm Gran Abs Auto 0.01 X10*3/uL (0.00-0.03); Imm Gran Pct Auto 0.1 % (0.0-0.4); Lymphocytes Absolute Auto 3.5 X10*3/uL (1.2-4.9); Lymphocytes Percent Auto 38.1 % (20-40); Mean Corpuscular HGB Conc 33.7 g/dl (31.0-36.0); Mean Corpuscular Hemoglobin 27.5 pg (27.0-33.0); Mean Corpuscular Volume 81.7 fL (80.0-98.0); Mean Platelet Volume 9.7 fL (9.4-12.4); Monocytes Absolute Auto 0.9 X10*3/uL (0.1-1.2); Monocytes Percent Auto 9.8 % (2-11); Neutrophils Absolute Auto 4.6 x10*3/uL (2.0-8.3); Neutrophils Percent Auto 49.9 % (45-73); Platelet Count 282 X10*3/uL (160-400); Red Blood Count 4.91 X10*6/uL (4.60-5.80); Red Cell Distribution Width 13.9 % (11.0-16.0); White Blood Count 9.2 X10*3/uL (4.8-10.8)
[2024-12-09 19:43] LABS: INTERNATIONAL NORM RATIO 0.9 (0.9-1.1); Prothrombin Time 10.8 SEC (10.9-12.4)
[2024-12-09 19:53] LABS: Alanine Aminotransferase 18 U/L (0-40); Albumin Level 4.5 g/dL (3.5-5.0); Alkaline Phosphatase 75 U/L (39-117); Anion Gap 12 (12-20); Aspartate Amino Transferase 25 U/L (5-37); Bilirubin Total 0.4 mg/dL (0.0-1.0); Blood Urea Nitrogen 13 mg/dL (9-16); Calcium 9.4 mg/dL (8.4-10.2); Carbon Dioxide 23 mmol/L (22-29); Chloride 108 mmol/L (96-108); Creatinine Clr Calc Pharmacy 104.5; Estimated Glomerular Filt Rate > 60; Glucose Random 96 mg/dL (60-115); Potassium 3.9 mmol/L (3.3-5.1); Sodium 139 mmol/L (135-145); Total Protein 7.6 g/dL (6.5-8.0)
[2024-12-09] MEDS: Fluorescein Sodium STRIP 1 STRIP EYE-RIGHT (23:24)
[2024-12-09] MEDS: Tetracaine HCl/PF 0.5% Oph Sol 4 ML DROPS 1 DROP EYE-RIGHT (23:25)
--- NOTE | 2024-12-09 23:36 | ED.GENADULT ---
HPI - General Adult General Chief complaint: Head Injury Stated complaint: right eye red and swollen Time Seen by Provider: 12/09/24 22:49 Source: patient, RN notes reviewed, old records reviewed and repairer welding systems and equipment Mode of arrival: ambulatory Limitations: no limitations History of Present Illness ED Provider: Jamilah HPI narrative: 64-year-old male presents for evaluation of facial pain and headache. He also complains of pain to his right eye The patient reports that he was drinking alcohol in excess 4 days ago. He reports falling several times 4 days ago as his friends told him he did. He also reports when he tried to get up from bed 4 days ago he accidentally hit himself in the face with a door He wears glasses for both near and far vision but does not have them with him He denies any blurry vision He has pain when he looks to the lateral of his right eye No other complaints or injuries Related Data Previous Rx's ?Medication ?Instructions ?Recorded blood-glucose meter (FreeStyle #1 ea 01/28/21 Lite Meter kit) lancets 28 gauge (FreeStyle #100 ea 01/28/21 Lancets) pen needle, diabetic 32 gauge x #100 ea 04/22/2103/30 (Comfort EZ [place]) flash glucose scanning reader #1 ea 04/29/21 (FreeStyle Brian [facility]) tamsulosin 0.4 mg capsule 0.4 mg PO BEDTIME 30 days #90 caps 08/19/21 blood sugar diagnostic (FreeStyle #100 ea 01/18/22 Lite Strips) famotidine 20 mg tablet (Pepcid) 20 mg PO DAILY PRN abdominal 05/09/22 discomfort #30 tabs ondansetron 4 mg disintegrating 4 mg PO Q8H PRN nausea and 05/09/22 tablet vomiting #20 tabs amlodipine 10 mg tablet 10 mg PO DAILY #90 tabs 01/12/24 hydrochlorothiazide 25 mg tablet 25 mg PO DAILY 90 days #90 tabs 01/12/24 flash glucose sensor (FreeStyle #2 ea 02/15/24 Brian 2 Sensor kit) pen needle, diabetic 32 gauge x #100 ea 02/15/24 (BD Jacinda 2nd Gen Pen Needle) insulin glargine 100 unit/mL (3 20 unit (0.2 mL) subcut QPM 30 08/30/24 mL) subcutaneous pen (Lantus #6 mL Solostar U-100 Insulin) aspirin 81 mg chewable tablet 81 mg PO DAILY 90 days #90 tabs 10/17/24 atorvastatin 80 mg tablet 80 mg PO DAILY 90 days #90 tabs 11/26/24 cholecalciferol (vitamin D3) 25 25 mcg PO DAILY #30 caps 11/26/24 mcg (1,000 unit) capsule ezetimibe 10 mg tablet 10 mg PO DAILY 90 days #90 tabs 11/26/24 metformin 1,000 mg tablet 1,000 mg PO BID 90 days #180 tabs 11/26/24 Allergies Allergy/AdvReac Type Severity Reaction Status Date / Time anesthesia from wisdom tooth Allergy Intermediate pt woke up Uncoded 12/09/24 19:06 e in hospital, does not remember reaction Review of Systems Constitutional: Constitutional: Denies body ache(s), Denies chills, Denies fever(s) and Reports headache(s) Eyes: Eyes: Denies blurry vision, Denies loss of peripheral vision, Reports eye pain, Reports requires corrective lenses and Reports photophobia ENT: Reports headache(s) Cardiovascular: Cardiovascular: Denies chest pain and Denies dyspnea Respiratory: Respiratory: Denies cough and Denies dyspnea Gastrointestinal: Gastrointestinal: Denies abdominal pain Neurologic: Reports headache(s) [facility] Past Medical History Medical History Overweight (BMI 25.0-29.9) Coronary atherosclerosis Pure hypercholesterolemia Nicotine dependence, cigarettes, uncomplicated Hypercalcemia Vitamin D deficiency BPH (benign prostatic hyperplasia) Diabetes mellitus (~2020) Fatigue Urinary dribbling Atherosclerotic cardiovascular disease CAD (coronary artery disease) (~2017) Essential hypertension Surgical History History of right breast biopsy History of heart artery stent Family History Family History Mother CVD (cardiovascular disease) Father Diabetes Hypertension Social History Social History Household Members: Spouse Housing: Apartment Alcohol intake: current Alcohol intake frequency: 3 or more drinks per day Alcohol type: hard liquor Patient Tobacco Use Status: Current everyday Tobacco user Tobacco use type: Cigarette Cigarette Packs Per Day: 1 Cigarettes Per Day: 20 Years Smoked: 40 Smoked in Last 30 Days: Yes e-Cigarette/Vaping Use: Never Used Second Hand Smoke Exposure: Yes Use of substances other than those prescribed or required for medical reasons: Yes Advance Directives: No Advance Directives Information Provided: No Do you have a plan to hurt others: No Plan service: No Current occupational status: unemployed Cognitive needs: No Hearing needs: No Vision needs: Yes Physical Exam ED Vital Signs: Vital Signs - 24 hr 12/09/24 18:59 Temperature 98.5 F Pulse Rate 81 Respiratory Rate 18 Blood Pressure 142/84 H Pulse Oximetry 96 Oxygen Delivery Method Room Air BMI result Body Mass Index 24.4 Const General: healthy appearing, comfortable, no acute distress, alert and awake Nutritional Appearance: well nourished Orientation/consciousness: patient oriented x3 HENMT Other: No significant wounds, ecchymosis to the face or head. There is some soft tissue edema to the bridge of the nose and tenderness with manipulation of the nasal bridge. No septal hematoma Eyes Eyelids: Yes eyelids normal Conjunctivae: conjunctival abnormal right (Mild diffuse conjunctival injection with subconjunctival hemorrhage) conjunctival injection and subconjunctival hemorrhage Sclerae: sclerae normal Corneas: corneas normal Pupils: Equal, round and reactive pupils present EOM: EOMs intact bilaterally Direct Ophthalmoscopy: normal light reflex, No no photophobia, no papilledema, fundi normal bilaterally, anterior chamber normal and photophobia Neck Neck: Yes full ROM Resp Effort & Inspection: normal respiratory effort, able to speak in complete sentences and not labored Skin General skin exam: elasticity normal Neuro General: patient oriented x3 Cranial nerves: Yes CN's II-XII intact bilaterally, Yes Equal, round and reactive pupils present and Yes Bilaterally intact EOM present Cognition (Neuro): normal cognition Extrem Other: Moving all extremities well without any obvious deformities Medications Administered Discontinued Medications Generic Name Dose Route Start Last Admin Trade Name Freq PRN Reason Stop Dose Admin Fluorescein Sodium 1 strip 12/09/24 23:14 12/09/24 23:24 Fluorescein Sodium Strip EYE-RIGHT 12/09/24 23:15 1 strip ONCE ONE Administration Tetracaine HCl 1 drop 12/09/24 23:14 12/09/24 23:25 Tetracaine Hcl/Pf 0.5% Oph Adriana 4 Ml Drops EYE-RIGHT 12/09/24 23:15 1 drop ONCE ONE Administration Medical Decision Making Medical Decision Making [facility] Narrative: 64-year-old male presents for evaluation of a headache and eye pain/facial pain after a fall 4 days ago. He was drinking alcohol when he fell and this was witnessed by several of his friends. He has light sensitivity but no blurry vision. I did a focused eye exam did not see any significant abnormalities. Extraocular motions are intact without entrapment or nystagmus. Anterior chambers clear. Can show ocular pressure measurement total pain is 10.1 mmHg in the right, within normal limits. Fluorescein stain performed without any uptake. I did consider visual acuity testing but the patient does not have his glasses to get an accurate reading. 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 I reiterated the importance of this. I discussed using the repairer welding systems and equipment the patient's nasal bone fracture. He has no open wounds and no sinus fractures to require prophylactic antibiotics. We will refer him to ENT for follow-up. The patient's labs are without any concerning abnormalities warranting intervention. Differential Diagnosis Differential Diagnoses: The differential diagnosis associated with the presentation includes Facial contusion Nasal fracture Retrobulbar hematoma Corneal abrasion Conjunctivitis Orbital fracture Intracranial hemorrhage Lab Data [facility] Lab Attestation statement: I reviewed the patient's lab results. No leukocytosis. The patient has a mild normocytic anemia which she has had in the past in his consistent with baseline. Normal platelet count. No significant electrolyte abnormalities. 12/09/24 19:31 12/09/24 19:31 Labs: Lab Results 12/09/24 Range/Units 19:31 WBC 9.2 (4.8-10.8) X10*3/uL RBC 4.91 (4.60-5.80) X10*6/uL Hgb 13.5 L (14.0-18.0) g/dl Hct 40.1 L (42.0-52.0) % MCV 81.7 (80.0-98.0) fL MCH 27.5 (27.0-33.0) pg MCHC 33.7 (31.0-36.0) g/dl RDW 13.9 (11.0-16.0) % Plt Count 282 (160-400) X10*3/uL MPV 9.7 (9.4-12.4) fL Immature Gran % (Auto) 0.1 (0.0-0.4) % Neut % (Auto) 49.9 (45-73) % Lymph % (Auto) 38.1 (20-40) % [place] % (Auto) 9.8 (2-11) % Eos % (Auto) 1.2 (0-4) % Baso % (Auto) 0.9 (0-2) % Lymph # (Auto) 3.5 (1.2-4.9) X10*3/uL [place] # (Auto) 0.9 (0.1-1.2) X10*3/uL Eos # (Auto) 0.1 (0.0-0.4) X10*3/uL Baso # (Auto) 0.1 (0.0-0.2) X10*3/uL Abs Immat Gran (auto) 0.01 (0.00-0.03) X10*3/uL Absolute Neuts (auto) 4.6 (2.0-8.3) x10*3/uL Absolute Nucleated RBC 0.000 (0.0-0.012) X10*3/uL Nucleated RBC % (auto) 0.0 (0.0-0.2) /100WBC PT 10.8 L (10.9-12.4) SEC INR 0.9 (0.9-1.1) Sodium 139 (135-145) mmol/L Potassium 3.9 (3.3-5.1) mmol/L Chloride 108 (96-108) mmol/L Carbon Dioxide 23 (22-29) mmol/L Anion Gap 12 (12-20) BUN 13 (9-16) mg/dL Creatinine 0.70 (0.5-1.4) mg/dL Estim Creat Clear Calc 104.5 Estimated GFR > 60 Random Glucose 96 (60-115) mg/dL Calcium 9.4 (8.4-10.2) mg/dL Total Bilirubin 0.4 (0.0-1.0) mg/dL AST 25 (5-37) U/L ALT 18 (0-40) U/L Alkaline Phosphatase 75 (39-117) U/L Total Protein 7.6 (6.5-8.0) g/dL Albumin 4.5 (3.5-5.0) g/dL Radiology Impression Discussion of test interpretation with radiology: I have reviewed the radiologist's reading. (Agree with Radiology interpretation) Radiologist Impression: Findings: No acute intracranial hemorrhage. No midline shift or hydrocephalus. Mild volume loss is generalized. Likely mild white matter lesions are nonspecific and likely related to small-vessel ischemic disease. Mild basal ganglia mineralization noted. Vascular calcifications noted. Partially empty sella by CT. Mild fluid and mucosal thickening of the paranasal sinuses. Imaged mastoid air cells are well aerated. Mild nasal bone fractures with anterior blunting are favored to be acute in the [id number]. Otherwise, no acute skull fracture. IMPRESSION: 1. No acute intracranial abnormality by CT. 2. Mild nasal bone blunting is likely acute. This document has been electronically signed by: Adithya Pool MD on 12/09/2024 20:25:10 Findings: Acute comminuted mild bilateral nasal bone fractures. Majority of the nasal septum deviates to the right. No displaced mandible fracture. Devitalized bone of the mandible and portions of the maxilla secondary to absent teeth. Lucencies noted about the to remaining maxillary teeth. Degenerative changes include the temporomandibular joints without dislocation. No acute intraconal stranding in this noncontrast study. No acute appearing or suspicious air-fluid levels of the paranasal sinuses. Imaged mastoid air cells are well aerated. Vascular calcifications noted. Please refer to separate report for included brain. Please refer to separate report for included cervical spine. IMPRESSION: Mild nasal bone fractures with anterior blunting are favored to be acute given soft tissue swelling. This document has been electronically signed by: Adithya Pool MD on 12/09/2024 20:21:14 Findings: Enthesopathy of the occipital protuberance without acute fracture. No acute fracture of the cervical spine. Mild vertebral height losses appear old chronic including C3 through C6. Facet arthropathy is multilevel with sclerosis and hypertrophy particularly in the right at C4-C5 where there is mild anterolisthesis. Straightening of the cervical lordosis. Disc osteophyte complexes with mild spinal canal stenosis including C4-C5 and C5-C6, where there is moderate to marked foraminal narrowing. Vascular calcifications noted. No paraspinal hematoma. Minimal scarring of the imaged lung apices. Subcutaneous edema is noted dependently. IMPRESSION: 1. No acute fracture of the cervical spine. 2. Multifocal facet arthropathy. 3. Findings of spinal stenosis including foraminal narrowing at C4-C5 and C5-C6. This document has been electronically signed by: Adithya Pool MD on 12/09/2024 20:02:54 Discharge Plan Discharge Clinical Impression: Closed fracture nasal bone, Contusion of face Patient Disposition: Home, Self-Care Instructions: Nasal Fracture (ED), Contusion in Adults (ED) Additional Instructions: Your workup in the ER today was reassuring. The CT scan of your brain and cervical spine were unremarkable. The CT scans of your face showed a likely acute nasal fracture I do not see any obvious injury to your eye on exam today. It is still very important that you call your eye doctor on Wednesday to schedule follow-up. You should be seen within the week Return for new or worsening symptoms You may use Tylenol as needed for pain Prescriptions: No Action (DME) blood-glucose meter [FreeStyle Lite Meter] Kit See Rx Instructions .ROUTE .MEDSUPPLY Qty: 1 0RF Rx Instructions: check blood glucose daily (DME) lancets [FreeStyle Lancets] 28 gauge misc See Rx Instructions .ROUTE .MEDSUPPLY Qty: 100 3RF Rx Instructions: test blood glucose daily tamsulosin 0.4 mg capsule 0.4 mg PO BEDTIME 30 Days Qty: 90 3RF (DME) FreeStyle Lite Strips Strip See Rx Instructions .ROUTE .MEDSUPPLY Qty: 100 3RF Rx Instructions: test blood glucose amlodipine 10 mg tablet 10 mg PO DAILY Qty: 90 3RF hydrochlorothiazide 25 mg tablet 25 mg PO DAILY 90 Days Qty: 90 3RF insulin glargine [Lantus Solostar U-100 Insulin] 100 unit/mL (3 mL) insulin pen 20 unit subcut QPM 30 Days Qty: 6 2RF atorvastatin 80 mg tablet 80 mg PO DAILY 90 Days Qty: 90 3RF ezetimibe 10 mg tablet 10 mg PO DAILY 90 Days Qty: 90 1RF metformin 1,000 mg tablet 1,000 mg PO BID 90 Days Qty: 180 1RF cholecalciferol (vitamin D3) 25 mcg (1,000 unit) capsule 25 mcg PO DAILY Qty: 30 2RF famotidine [Pepcid] 20 mg tablet 20 mg PO DAILY PRN (Reason: abdominal discomfort) Qty: 30 0RF ondansetron 4 mg tablet,disintegrating 4 mg PO Q8H PRN (Reason: nausea and vomiting) Qty: 20 0RF (DME) Comfort EZ [place] 32 gauge x 5/16 needle See Rx Instructions .ROUTE .MEDSUPPLY Qty: 100 3RF Rx Instructions: Use 1 needle for 90 day (DME) pen needle, diabetic [BD Jacinda 2nd Gen Pen Needle] 32 gauge x 5/32 needle See Rx Instructions .ROUTE .MEDSUPPLY Qty: 100 11RF Rx Instructions: Use 1 needel once a day for 90 days (DME) FreeStyle Brian 2 Sensor Kit See Rx Instructions .ROUTE .MEDSUPPLY Qty: 2 6RF Rx Instructions: As directed every 2 weeks (DME) FreeStyle Brian 2 [facility] Misc See Rx Instructions .ROUTE .MEDSUPPLY Qty: 1 0RF Rx Instructions: As directed aspirin 81 mg tablet,chewable 81 mg PO DAILY 90 Days Qty: 90 1RF Referrals: Grabiel Ariza [Physician] - (nasal fracture) Print Language: Thai
--- NOTE | 2024-12-09 23:37 | PC.NURSE ---
Per Leandro, ED provider patient does not need a visual acuity test, patient does not have his eye glasses with him.
[2024-12-09] MEDS: Acetaminophen 325 MG TABLET 650 MG PO (23:49)
[2024-12-10 00:26] VITALS: BP 132/76; PULSE 86; RESP 16; TEMP 36.8; O2SAT 96
== END 2024-12-10 00:27 | disposition home or self-care (01) ==
PROVIDERS: Physician Assistant Medical; Emergency Provider Emergency Medicine Emergency Medical Services; PCP Surgery
DX: S02.2XXA Fracture of nasal bones, initial encounter for closed fracture (principal); S00.83XA Contusion of other part of head, initial encounter; W18.30XA Fall on same level, unspecified, initial encounter; H11.31 Conjunctival hemorrhage, right eye; Z91.81 History of falling; Y93.89 Activity, other specified; Y92.480 Sidewalk as the place of occurrence of the external cause; Y99.9 Unspecified external cause status; E11.9 Type 2 diabetes mellitus without complications; I10 Essential (primary) hypertension; E78.00 Pure hypercholesterolemia, unspecified; F17.210 Nicotine dependence, cigarettes, uncomplicated
CPT/HCPCS: 36415; 70450; 70486; 72125; 80053; 85025; 85610; 99284

== ENCOUNTER → 2024-12-09 19:02 | Outpatient (BNV) | payer OTHER, SELFPAY | PROVIDERS: PCP Surgery; Visit Provider Radiology Neuroradiology | DX: S09.90XA Unspecified injury of head, initial encounter (principal); S09.93XA Unspecified injury of face, initial encounter | CPT/HCPCS: 70450; 70486; 72125 ==

== ENCOUNTER 2025-01-12 08:28 | Outpatient (REF) | payer OTHER, SELFPAY ==
[2025-01-12 08:42] LABS: MANUAL DIFF FLAG NO
[2025-01-12 09:18] LABS: Basophils Absolute Auto 0.1 X10*3/uL (0.0-0.2); Basophils Percent Auto 0.8 % (0-2); Eosinophils Absolute Auto 0.3 X10*3/uL (0.0-0.4); Eosinophils Percent Auto 2.9 % (0-4); Hematocrit 39.5 % (42.0-52.0); Hemoglobin 13.2 g/dl (14.0-18.0); Imm Gran Abs Auto 0.03 X10*3/uL (0.00-0.03); Imm Gran Pct Auto 0.3 % (0.0-0.4); Mean Corpuscular HGB Conc 33.4 g/dl (31.0-36.0); Mean Corpuscular Hemoglobin 27.1 pg (27.0-33.0); Mean Corpuscular Volume 81.1 fL (80.0-98.0); Mean Platelet Volume 10.3 fL (9.4-12.4); Monocytes Absolute Auto 0.9 X10*3/uL (0.1-1.2); Monocytes Percent Auto 8.8 % (2-11); Neutrophils Absolute Auto 5.6 x10*3/uL (2.0-8.3); Neutrophils Percent Auto 57.2 % (45-73); Platelet Count 299 X10*3/uL (160-400); Red Blood Count 4.87 X10*6/uL (4.60-5.80); Red Cell Distribution Width 14.2 % (11.0-16.0); White Blood Count 9.9 X10*3/uL (4.8-10.8)
[2025-01-12 09:21] LABS: Estimated Average Glucose 137 mg/dL; Hemoglobin A1C 161.7774 umol/L; Hemoglobin A1c % 6.4 % (<6.0); Total Hemoglobin (HGBA1C) 3518.1526 umol/L
[2025-01-12 09:54] LABS: Alanine Aminotransferase 23 U/L (0-40); Albumin Level 4.3 g/dL (3.5-5.0); Alkaline Phosphatase 82 U/L (39-117); Anion Gap 12 (12-20); Aspartate Amino Transferase 28 U/L (5-37); Bilirubin Total 0.6 mg/dL (0.0-1.0); Blood Urea Nitrogen 14 mg/dL (9-16); Calcium 9.5 mg/dL (8.4-10.2); Carbon Dioxide 27 mmol/L (22-29); Chloride 105 mmol/L (96-108); Cholesterol 202 mg/dL (<200); Estimated Glomerular Filt Rate > 60; Glucose Fasting 118 mg/dL (60-99); HDL Cholesterol 78 mg/dL (>40); LDL Cholesterol Calculated 90 mg/dL (<100); Potassium 4.1 mmol/L (3.3-5.1); Sodium 140 mmol/L (135-145); Total Protein 7.6 g/dL (6.5-8.0); Triglycerides 172 mg/dL (<150)
[2025-01-12 10:00] LABS: TSH reflex Free T4 2.53 uIU/mL (0.32-4.0)
[2025-01-12 10:44] LABS: Appearance Urine Clear; Color Urine Yellow; Glucose Urine UA Negative (Negative); Leukocyte Esterase Urine Negative (Negative); Nitrite Urine Negative (Negative); PH 7.5 (5.0-9.0); Specific Gravity - Urine 1.015 (1.005-1.025); Urine Blood Negative (Negative); Urine Ketones Negative (Negative); Urine Protein Negative (Neg-Trace)
[2025-01-12 11:06] LABS: Creatinine Urine 83.05 mg/dL
== END 2025-01-12 08:29 | disposition home or self-care (01) ==
LOC: HO.LAB 08:28
PROVIDERS: PCP Internal Medicine; Visit Provider Internal Medicine
DX: D64.9 Anemia, unspecified (principal); E11.9 Type 2 diabetes mellitus without complications; E78.00 Pure hypercholesterolemia, unspecified; E55.9 Vitamin D deficiency, unspecified; R30.0 Dysuria
CPT/HCPCS: 36415; 80053; 80061; 81003; 82043; 82306; 82570; 83036; 84443; 85025

== ENCOUNTER 2025-01-29 12:33 | Outpatient (AMB) | payer OTHER, SELFPAY ==
[2025-01-29 12:34] VITALS: BP 130/82; PULSE 93; O2SAT 94; BMI 24.5
--- NOTE | 2025-01-29 12:34 | A.OFFPC_ITS ---
Vital Signs 01/29/25 12:34 Height 5 ft 8 in Weight 161 lb BMI 24.5 BP 130/82 Blood Pressure Location Lt brachial Position Sitting Pulse 93 Pulse Source Pulse Oximeter Pulse Oximetry (%) 94 Oxygen Delivery Method Room Air Intake Visit Reasons: 4 Months f/u Playground Monitor Required: No Accompanied by: Self / Same As Patient Allergies anesthesia from wisdom tooth e Allergy (Intermediate, Uncoded 01/29/25 12:50) pt woke up in hospital, does not remember reaction Medication List - Last Reconciled 01/29/25 by Jethro Davis MD amlodipine 10 mg PO DAILY aspirin 81 mg PO DAILY 90 days atorvastatin 80 mg PO DAILY 90 days blood sugar diagnostic (FreeStyle Lite Strips) test blood glucose blood-glucose meter (FreeStyle Lite Meter kit) check blood glucose daily cholecalciferol (vitamin D3) 25 mcg PO DAILY ezetimibe 10 mg PO DAILY 90 days famotidine (Pepcid) 20 mg PO DAILY PRN flash glucose scanning reader (UiTVStyle Brian 2 Wilbur) As directed flash glucose sensor (FreeStyle Brian 2 Sensor kit) As directed every 2 weeks hydrochlorothiazide 25 mg PO DAILY 90 days insulin glargine (Lantus Solostar U-100 Insulin) 20 units (0.2 mL) subcut QPM 30 days lancets (FreeStyle Lancets) test blood glucose daily metformin 1,000 mg PO BID 90 days ondansetron 4 mg PO Q8H PRN pen needle, diabetic (Comfort EZ Pen [place]) Use 1 needle for 90 day pen needle, diabetic (BD Jacinda 2nd Gen Pen Needle) Use 1 needel once a day for 90 days tamsulosin 0.4 mg PO BEDTIME 30 days Tobacco use date assessed: 01/29/25 Dental Screening Dental Screen Date: 01/29/25 Did you have a dental visit in the last 12 months?: No Did you have a dental problem in the last 6 months where you did not have access to dental care?: No Was dental information given to patient?: No HPI 4 Months f/u HPI Details Patient comes in today for his follow up visit Relates that he fell on his face after drinking a couple of months ago and sustained some facial/nasal fractures but he fortunately did not require any surgery States that he currently feels okay He denies any headaches or dizziness Denies any chest pains, no SOB No nausea/vomiting, no abdominal pain No change in bowel habits noted He had his follow up labs done a couple of weeks ago - to discuss his results [facility] Medical History Overweight (BMI 25.0-29.9) Coronary atherosclerosis Pure hypercholesterolemia Nicotine dependence, cigarettes, uncomplicated Hypercalcemia Vitamin D deficiency BPH (benign prostatic hyperplasia) Diabetes mellitus (~2020) Fatigue Urinary dribbling Atherosclerotic cardiovascular disease CAD (coronary artery disease) (~2017) Essential hypertension Surgical History History of right breast biopsy History of heart artery stent Family History Mother CVD (cardiovascular disease) Father Diabetes Hypertension Social History Household Members: Spouse Housing: Apartment Alcohol intake: current Alcohol intake frequency: 3 or more drinks per day Alcohol type: hard liquor Patient Tobacco Use Status: Current everyday Tobacco user Tobacco use type: Cigarette Cigarette Packs Per Day: 1 Cigarettes Per Day: 20 Years Smoked: 40 e-Cigarette/Vaping Use: Never Used Second Hand Smoke Exposure: Yes service: No Current occupational status: unemployed Cognitive needs: No Hearing needs: No Vision needs: Yes Questionnaire PHQ-9 Over the last 2 weeks, how often have you been bothered by any of the following problems? 1. Little interest or pleasure in doing things: not at all 2. Feeling down, depressed, or hopeless: not at all 3. Trouble falling or staying asleep, or sleeping too much: not at all 4. Feeling tired or having little energy: not at all 5. Poor appetite or overeating: not at all 6. Feeling bad about yourself - or that you are a failure or have let yourself or your family down: not at all 7. Trouble concentrating on things, such as reading the newspaper or watching television: not at all 8. Moving or speaking so slowly that other people could have noticed. Or the opposite - being so fidgety or restless that you have been moving around a lot more than usual: not at all 9. Thoughts that you would be better off or of hurting yourself in some way: not at all Total score: 0 Depression Screening Interpretation: Negative Depression Screening Done: Yes 20696 - PHQ-9 Billing: Yes Source: Developed by Drs. Vaibhav Delgado, Karol Go, Zak Rodriguez and colleagues, with an educational daniel from [employer]. Thrive Questionnaire Date Thrive assessed: 01/29/25 I am a: Patient What is your living situation today?: I have a steady place to live Within the past 12 months, did the food you bought not last and you didn't have the money to get more?: Never true Within the past 12 months, did you worry whether your food would run out before you got money to buy more?: Never true Do you have trouble paying for medicines?: No Do you have trouble getting transportation to medical appointments?: No Do you have trouble paying your heating and electricity bill?: No Do you have trouble taking care of your child, family member or friend?: No Do you have trouble with day-to-day activities such as bathing, preparing meals, shopping, managing finances, etc.?: No Are you currently unemployed and looking for a job?: No Are you interested in more education?: No Please select the resources that you would like help with: None Currently or been in a relationship where the following occur: No concerns reported THRIVE Score: 0 AUDIT C Alcohol Use Questionnaire (AUDIT-C) 1. How often do you have a drink containing alcohol?: 4 or more times a week 2. How many drinks containing alcohol do you have on a typical day when you are drinking?: 1 or 2 3. How often do you have six or more drinks on one occasion?: Never Total Score: 4 Score Reviewed/Action Taken: Yes MAMADOU-7 AMB Questionnaire MAMADOU-7 Date MAMADOU - 7 assessed: 01/29/25 Feeling nervous, anxious, or on edge: 0 = Not at all Not being able to stop or control worryin = Not at all Worrying too much about different things: 0 = Not at all Trouble relaxin = Not at all Being so restless that it is hard to sit still: 0 = Not at all Becoming easily annoyed or irritable: 0 = Not at all Feeling afraid as if something awful might happen: 0 = Not at all Total MAMADOU-7 score (0-4 normal; 5-9 mild; 10-14 moderate; 15-21 severe): 0 Source: Developed by Drs. Vaibhav Delgado, Karol Go, Zak Rodriguez and colleagues, with an educational daniel from [employer]. Review of Systems Const Denies chills, Denies fatigue, Denies fever(s) and Denies headache(s) Eyes Denies blurry vision ENT Denies dysphagia, Denies dizziness, Denies otalgia, Denies headache(s), Denies neck pain, Denies odynophagia and Denies sore throat Card Denies chest pain, Denies palpitations and Denies dyspnea Resp Denies chest congestion, Denies cough and Denies dyspnea GI Denies abdominal pain, Denies constipation, Denies dysphagia, Denies heartburn, Denies diarrhea, Denies nausea, Denies odynophagia and Denies vomiting Denies difficulty urinating, Denies dysuria, Denies nocturia and Denies urinary frequency Musc Denies back pain, Denies arthralgias and Denies neck pain Skin/Breast Denies rash Neuro Denies dizziness and Denies headache(s) Endo Denies fatigue and Denies palpitations Physical exam (Primary Care) Vital Signs: Last Vital Signs Pulse 93 01/29/25 12:34 BP 130/82 01/29/25 12:34 Pulse Ox 94 01/29/25 12:34 Oxygen Delivery Method Room Air 01/29/25 12:34 BMI result Body Mass Index 24.5 Tobacco/Smoking Status: Tobacco use Status Tobacco use date assessed 01/29/25 01/29/25 12:36 Patient Tobacco Use Status Current everyday Tobacco 01/29/25 12:36 Tobacco use type Cigarette 01/29/25 12:36 e-Cigarette/Vaping Use Never Used 01/29/25 12:36 PHQ-9: PHQ-9 Score PHQ-9: Total score 0 01/29/25 12:36 Depression Screening Interpretation: Negative Thrive Assessment: Date of Thrive Assessment Date Thrive assessed 01/29/25 01/29/25 12:36 Currently or been in a relationship where the following occur: No concerns reported Const General: no acute distress and alert HENMT Ears: TM's normal bilaterally and EAC's normal Throat: Yes posterior oropharynx normal and Yes tonsils normal (no TP congestion) Neck Neck: Yes supple and No lymphadenopathy Thyroid: Thyroid normal Resp Auscultation: clear to auscultation bilaterally, no rales and no wheezes Cardio Rate: regular rate Rhythm: regular rhythm Heart sounds: no murmurs GI Palpation (GI): Soft to palpation and nontender Auscultation: normal bowel sounds General: Yes no CVA tenderness Back/Spine/Pelvis Back: no CVA tenderness Thoracic/Lumbar Spine: No lumbar spinal tenderness Skin Rashes: no rashes Extrem General: Yes no clubbing, cyanosis or edema Results Reviewed Results Reviewed: Laboratory Tests 01/12/25 01/12/25 08:36 08:41 WBC 9.9 Hgb 13.2 L Hct 39.5 L Plt Count 299 Sodium 140 Potassium 4.1 Creatinine 0.75 Estimated GFR > 60 Fasting Glucose 118 H Hemoglobin A1c % 6.4 H Calcium 9.5 AST 28 ALT 23 Triglycerides 172 H Cholesterol 202 H LDL Cholesterol, Calc 90 HDL Cholesterol 78 25-OH Vitamin D Total 25.0 L TSH 2.53 Ur Specific [place] 1.015 Urine Protein Negative Urine Glucose (UA) Negative Urine Blood Negative Urine Nitrite Negative Ur Leukocyte Esterase Negative Microalb/Creat Ratio 12.0 Coding Level of Care Code Est Pt Level 4 (73376) Diagnoses Atherosclerosis of [place] coronary artery of [place] heart without angina pectoris I25.10 Coronary Disease-Associated Artery/Lesion type: [place] artery Tribal vs. 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 Diabetes mellitus complication status: with hyperglycemia Essential hypertension I10 Gastroesophageal reflux disease without esophagitis K21.9 Esophagitis presence: without esophagitis Vitamin D deficiency E55.9 Benign prostatic hyperplasia with nocturia N40.1; R35.1 Lower urinary tract symptom presence: symptoms present Lower urinary tract symptom detail: nocturia Closed fracture of nasal bone, sequela S02.2XXS Encounter type: sequela Fracture type: closed Additional Codes PHQ-9 - 64314 - PHQ-9 Billing: Yes ([id number]) Assessment & Plan Assessment & Plan (1) Coronary atherosclerosis: Comment: S/P STEMI - RCA stented in 01/2018 Code(s): I25.10 - Atherosclerotic heart disease of [place] coronary artery without angina pectoris Category: Medical Qualifiers: Coronary Disease-Associated Artery/Lesion type: [place] artery [place] vs. transplanted heart: [place] heart Associated angina: without angina Qualified Code(s): I25.10 - Atherosclerotic heart disease of [place] coronary artery without angina pectoris Plan: S/P STEMI with stenting of RCA in 01/2018 Patient is currently asymptomatic from cardiology standpoint Continue Aspirin 81 mg QD and aggressive risk factor modification Follow up with cardiology as scheduled (2) Pure hypercholesterolemia: Code(s): E78.00 - Pure hypercholesterolemia, unspecified Category: Medical Plan: Results of his labs done a couple of weeks ago reviewed and discussed with patient He is advised that his LDL cholesterol level has improved significantly from pr evious and is now at 90 mg/dl on his recent labs - goal is still LDL cholesterol of <70 mg/dl due to his diabetes and CAD Dx Reinforced low cholesterol diet Continue Atorvastatin 80 mg QD and Ezetimibe 10 mg QD Will recheck his labs and fasting lipids in 4 months for follow up (3) Diabetes mellitus: Onset Date: ~2020 Comment: DM2 - dx 03/2021 Code(s): E11.9 - Type 2 diabetes mellitus without complications Category: Medical Qualifiers: Diabetes mellitus type: type 2 Diabetes mellitus termite control technician insulin use: with shelter use Diabetes mellitus complication status: with hyperglycemia Qualified Code(s): E11.65 - Type 2 diabetes mellitus with hyperglycemia; Z79.4 - intermediate (current) use of insulin Plan: His HgbA1c was at 6.4% on his labs done a couple of weeks ago (his in-office HgbA1c was previously at 6.0% back in June 2024) - goal is at least <7.0% but ideally <6.5% Reinforced diabetic diet Continue Metformin 1000 mg BID and Lantus Solostar 20 units Q HS (4) Essential hypertension: Code(s): I10 - Essential (primary) hypertension Category: Medical Plan: Reinforced low sodium diet - goal is systolic BP of 120 mm or less Continue Hydrochlorothiazide 25 mg Q AM and Amlodipine 10 mg QD Patient is reminded to continue monitoring his blood pressure regularly (5) GERD (gastroesophageal reflux disease): Code(s): K21.9 - Gastro-esophageal reflux disease without esophagitis Category: Medical Qualifiers: Esophagitis presence: without esophagitis Qualified Code(s): K21.9 - Gastro-esophageal reflux disease without esophagitis Plan: Dietary restrictions reinforced Continue Famotidine 20 mg QD (6) Vitamin D deficiency: Code(s): E55.9 - Vitamin D deficiency, unspecified Category: Medical Plan: Continue Vitamin D3 1000 units QD - he is advised to stay on this as his level has dropped off slightly on his recent labs (7) BPH (benign prostatic hyperplasia): Code(s): N40.0 - Benign prostatic hyperplasia without lower urinary tract symptoms Category: Medical Qualifiers: Lower urinary tract symptom presence: symptoms present Lower urinary tract symptom detail: nocturia Qualified Code(s): N40.1 - Benign prostatic hyperplasia with lower urinary tract symptoms; R35.1 - Nocturia Plan: Continue Tamsulosin 0.4 mg Q HS Follow up with urology as scheduled (8) Nasal fracture: Code(s): S02.2XXA - Fracture of nasal bones, initial encounter for closed fracture Category: Medical Qualifiers: Encounter type: sequela Fracture type: closed Qualified Code(s): S02.2XXS - Fracture of nasal bones, sequela Plan: Resolving This was sustained when patient fell on his face after drinking a couple of months ago in November 2024 He fortunately did not require surgical correction Follow up with ENT/OMFS as scheduled or as needed Plan Follow up in 4 months Orders: Orders UA CC w/rflx Micro + Cult 4 Months R30.0 - Dysuria Vitamin B12 and Folate 4 Months E53.8 - Deficiency of other specified B group vitamins Complete Blood Count Auto Diff 4 Months D64.9 - Anemia, unspecified Comprehensive [place]. Panel Fast 4 Months E78.00 - Pure hypercholesterolemia, unspecified Lipid Panel 4 Months E78.00 - Pure hypercholesterolemia, unspecified Hemoglobin A1c 4 Months E11.9 - Type 2 diabetes mellitus without complications Microalbumin, Random (w Creat) 4 Months E11.9 - Type 2 diabetes mellitus without complications TSH reflex Free T4 4 Months E78.00 - Pure hypercholesterolemia, unspecified Vitamin D 25-OH Total 4 Months E55.9 - Vitamin D deficiency, unspecified
== END 2025-01-29 13:00 | disposition home or self-care (01) ==
LOC: HO.HMCH 12:33
PROVIDERS: PCP Internal Medicine; Visit Provider Internal Medicine
DX: I25.10 Atherosclerotic heart disease of native coronary artery without angina pectoris (principal); E78.00 Pure hypercholesterolemia, unspecified; E11.65 Type 2 diabetes mellitus with hyperglycemia; Z79.4 Long term (current) use of insulin; I10 Essential (primary) hypertension; K21.9 Gastro-esophageal reflux disease without esophagitis; E55.9 Vitamin D deficiency, unspecified; N40.1 Benign prostatic hyperplasia with lower urinary tract symptoms; R35.1 Nocturia; S02.2XXS Fracture of nasal bones, sequela

== ENCOUNTER → 2025-01-29 12:33 | Outpatient (BNVA) | payer OTHER, SELFPAY | PROVIDERS: PCP Internal Medicine; Visit Provider Internal Medicine | DX: I25.10 Atherosclerotic heart disease of native coronary artery without angina pectoris (principal); E78.00 Pure hypercholesterolemia, unspecified; E11.65 Type 2 diabetes mellitus with hyperglycemia; I10 Essential (primary) hypertension; K21.9 Gastro-esophageal reflux disease without esophagitis; E55.9 Vitamin D deficiency, unspecified; N40.1 Benign prostatic hyperplasia with lower urinary tract symptoms; R35.1 Nocturia; S02.2XXS Fracture of nasal bones, sequela; Z79.4 Long term (current) use of insulin | CPT/HCPCS: 96127; 99212 ==

== ENCOUNTER 2025-03-19 14:36 | Outpatient (AMB) | payer OTHER, SELFPAY ==
[2025-03-19 14:43] VITALS: BP 134/76; PULSE 95; O2SAT 94; BMI 23.9
--- NOTE | 2025-03-19 14:43 | MHC.PC.OV ---
Vital Signs 03/19/25 14:43 Height 5 ft 8 in Weight 157 lb BMI 23.9 BP 134/76 Blood Pressure Location Lt brachial Position Sitting Pulse 95 Pulse Source Pulse Oximeter Pulse Oximetry (%) 94 Oxygen Delivery Method Room Air Intake Visit Reasons: [facility] lid surgery on 03/23 [employer] Required: Yes Accompanied by: Self / Same As Patient Allergies anesthesia from wisdom tooth e Allergy (Intermediate, Uncoded 03/19/25 15:19) pt woke up in hospital, does not remember reaction Medication List - Last Reconciled 03/19/25 by LEI Gray amlodipine 10 mg PO DAILY aspirin 81 mg PO DAILY 90 days atorvastatin 80 mg PO DAILY 90 days blood sugar diagnostic (FreeStyle Lite Strips) test blood glucose blood-glucose meter (FreeStyle Lite Meter kit) check blood glucose daily cholecalciferol (vitamin D3) 25 mcg PO DAILY ezetimibe 10 mg PO DAILY 90 days famotidine (Pepcid) 20 mg PO DAILY PRN flash glucose scanning reader ([employer] Brian 2 Grant) As directed flash glucose sensor ([employer] Brian 2 Sensor kit) As directed every 2 weeks hydrochlorothiazide 25 mg PO DAILY 90 days insulin glargine (Lantus Solostar U-100 Insulin) 20 units (0.2 mL) subcut QPM 30 days lancets (FreeStyle Lancets) test blood glucose daily metformin 1,000 mg PO BID 90 days ondansetron 4 mg PO Q8H PRN pen needle, diabetic (Comfort EZ Pen Jewett) Use 1 needle for 90 day pen needle, diabetic (BD Jacinda 2nd Gen Pen Needle) Use 1 needel once a day for 90 days tamsulosin 0.4 mg PO BEDTIME 30 days Tobacco use date assessed: 03/19/25 Dental Screening Dental Screen Date: 03/19/25 Did you have a dental visit in the last 12 months?: No Did you have a dental problem in the last 6 months where you did not have access to dental care?: No Was dental information given to patient?: No HPI [facility] surgery on 03/23 HPI Details The patient is a 64-year-old male presenting with ptosis of both eyelids, which he describes as a progressive condition affecting his vision, particularly when reading. The scheduled surgical correction is set for May 9th. His medical history includes significant procedures, notably a coronary artery bypass, and he has experience with anesthesia, having previously reported an episode of dizziness potentially linked to low blood sugar following dental anesthesia. Current medical management involves insulin and metformin for Type 2 Diabetes Mellitus, as well as antihypertensive medication for hypertension control. The patient has reported dehydration-related symptoms during hot weather but denies recent palpitations, chest pain, or abdominal discomfort. Surgeon/location: Saba Elaine MD/ [facility] [place] [place] Anesthesa: MAC, the reports previous surgeries involving the use of general anesthesia without any issues. The patient will be getting a less potent form of anesthesia. The patient denies any post surgical hypothermia, bleeding issues, and he is not on any anticoagulation. The patient is on Aspirin, which is low risk and could be continued. The patient denies chest pain, sob, heart palpitation, and dizziness Denies abdominal/changes in bowel habits or urinary symptoms Medical History significant for CAD, essential hypertension, DM, and HLD Echocardiogram 2020-normal LVEF, 55-60%; no wall motion abnormalities; no significant valvular pathology. Blood pressure within goal. Diabetes well control with and A1C of 5.8% in office. T-cholesterol 182, Tri 64, LDL 78, HDL 92. The EKG shows normal sinus rhythm. Discussed with patient to hold Lantus 20 units the night prior to surgery. Hold Metformin the morning of surgery. The patient could take all other medications with sips of water. [facility] Medical History Overweight (BMI 25.0-29.9) Coronary atherosclerosis Pure hypercholesterolemia Nicotine dependence, cigarettes, uncomplicated Hypercalcemia Vitamin D deficiency BPH (benign prostatic hyperplasia) Diabetes mellitus (~2020) Fatigue Urinary dribbling Atherosclerotic cardiovascular disease CAD (coronary artery disease) (~2017) Essential hypertension Surgical History History of right breast biopsy History of heart artery stent Family History Mother CVD (cardiovascular disease) Father Diabetes Hypertension Social History Household Members: Spouse Housing: Apartment Alcohol intake: current Alcohol intake frequency: 3 or more drinks per day Alcohol type: hard liquor Patient Tobacco Use Status: Current everyday Tobacco user Tobacco use type: Cigarette Cigarette Packs Per Day: 1 Cigarettes Per Day: 20 Years Smoked: 40 e-Cigarette/Vaping Use: Never Used Second Hand Smoke Exposure: Yes service: No Current occupational status: unemployed Cognitive needs: No Hearing needs: No Vision needs: Yes Questionnaire PHQ-9 Over the last 2 weeks, how often have you been bothered by any of the following problems? 1. Little interest or pleasure in doing things: not at all 2. Feeling down, depressed, or hopeless: not at all 3. Trouble falling or staying asleep, or sleeping too much: not at all 4. Feeling tired or having little energy: not at all 5. Poor appetite or overeating: not at all 6. Feeling bad about yourself - or that you are a failure or have let yourself or your family down: not at all 7. Trouble concentrating on things, such as reading the newspaper or watching television: not at all 8. Moving or speaking so slowly that other people could have noticed. Or the opposite - being so fidgety or restless that you have been moving around a lot more than usual: not at all 9. Thoughts that you would be better off or of hurting yourself in some way: not at all Total score: 0 Depression Screening Interpretation: Negative Depression Screening Done: Yes Source: Developed by Drs. Vaibhav Delgado, Karol Go, Zak Rodriguez and colleagues, with an educational daniel from [employer]. Thrive Questionnaire Date Thrive assessed: 03/19/25 I am a: Patient What is your living situation today?: I have a steady place to live Within the past 12 months, did the food you bought not last and you didn't have the money to get more?: Never true Within the past 12 months, did you worry whether your food would run out before you got money to buy more?: Never true Do you have trouble paying for medicines?: No Do you have trouble getting transportation to medical appointments?: No Do you have trouble paying your heating and electricity bill?: No Do you have trouble taking care of your child, family member or friend?: No Do you have trouble with day-to-day activities such as bathing, preparing meals, shopping, managing finances, etc.?: No Are you currently unemployed and looking for a job?: No Are you interested in more education?: No Please select the resources that you would like help with: None Currently or been in a relationship where the following occur: No concerns reported THRIVE Score: 0 AUDIT C Alcohol Use Questionnaire (AUDIT-C) 1. How often do you have a drink containing alcohol?: 4 or more times a week 2. How many drinks containing alcohol do you have on a typical day when you are drinking?: 1 or 2 3. How often do you have six or more drinks on one occasion?: Never Total Score: 4 Score Reviewed/Action Taken: Yes MAMADOU-7 AMB Questionnaire MAMADOU-7 Date MAMADOU - 7 assessed: 03/19/25 Feeling nervous, anxious, or on edge: 0 = Not at all Not being able to stop or control worryin = Not at all Worrying too much about different things: 0 = Not at all Trouble relaxin = Not at all Being so restless that it is hard to sit still: 0 = Not at all Becoming easily annoyed or irritable: 0 = Not at all Feeling afraid as if something awful might happen: 0 = Not at all Total MAMADOU-7 score (0-4 normal; 5-9 mild; 10-14 moderate; 15-21 severe): 0 Source: Developed by Drs. Vaibhav Delgado, Karol Go, Zak Rodriguez and colleagues, with an educational daniel from [employer]. Review of Systems Const Details: - Constitutional: Reports feeling dehydrated on hot days but otherwise okay - Cardiovascular: Denies chest pain and palpitations - Respiratory: Denies shortness of breath - Gastrointestinal: Denies abdominal pain - Endocrine: Reports no dizziness on usual days; denies recent low blood sugar episodes - Neurological: Denies dizziness or headache Denies headache(s) Eyes Denies loss of vision ENT Denies vertigo, Denies dizziness, Denies headache(s) and Denies sore throat Card Denies chest pain, Denies leg edema and Denies lightheadedness Resp Denies cough, Denies hemoptysis and Denies wheezing GI Denies abdominal pain, Denies melena, Denies constipation, Denies diarrhea and Denies vomiting Denies dysuria, Denies urinary frequency and Denies urinary urgency Musc Denies arthralgias, Denies joint swelling, Denies numbness and Denies tingling Neuro Denies Abnormal speech present, Denies behavioral changes, Denies vertigo, Denies dizziness, Denies headache(s), Denies loss of vision, Denies memory loss, Denies numbness and Denies tingling Psych Denies anxiety, Denies behavioral changes, Denies depression, Denies memory loss and Denies panic attacks Maikel/Lymph Denies easy bleeding and Denies easy bruising Aller/Immun Denies wheezing Physical exam (Primary Care) Vital Signs: Last Vital Signs Pulse 95 03/19/25 14:43 BP 134/76 03/19/25 14:43 Pulse Ox 94 03/19/25 14:43 Oxygen Delivery Method Room Air 03/19/25 14:43 BMI result Body Mass Index 23.9 Tobacco/Smoking Status: Tobacco use Status Tobacco use date assessed 03/19/25 03/19/25 14:45 Patient Tobacco Use Status Current everyday Tobacco 03/19/25 14:45 Tobacco use type Cigarette 03/19/25 14:45 e-Cigarette/Vaping Use Never Used 03/19/25 14:45 PHQ-9: PHQ-9 Score PHQ-9: Total score 0 03/20/25 18:55 Depression Screening Interpretation: Negative Thrive Assessment: Date of Thrive Assessment Date Thrive assessed 03/19/25 03/19/25 14:45 Currently or been in a relationship where the following occur: No concerns reported Const General: healthy appearing, no acute distress, alert and awake Nutritional Appearance: well nourished Orientation/consciousness: oriented to person, oriented to place and oriented to time [facility] Ears: TM's normal bilaterally General nose exam: Normal nasal mucous membranes and turbinates present Eyes Conjunctivae: conjunctivae normal Sclerae: sclerae normal Pupils: Equal, round and reactive pupils present Neck Neck: Yes no lymphadenopathy and Yes no JVD Thyroid: Thyroid normal Carotids: no bruits Resp Effort & Inspection: normal respiratory effort and not tachypneic Auscultation: no crackles, no rales, no rhonchi and no wheezes Cardio Rate: regular rate Rhythm: regular rhythm Heart sounds: no murmurs and normal S1 and S2 GI Palpation (GI): Soft to palpation, nontender, no hepatomegaly and no splenomegaly Auscultation: normal bowel sounds Skin General skin exam: no rashes or lesions noted and dry skin Neuro General: oriented to person, oriented to place and oriented to time Cranial nerves: Yes Equal, round and reactive pupils present Speech: No Abnormal speech present Gait exam (Neuro): Normal gait present Motor exam (neuro): no tremor noted Extrem Right upper extremity: full ROM Left upper extremity: full ROM Right lower extremity: full ROM; no edema Left lower extremity: full ROM; no edema Psych Mental Status: mental status grossly normal Speech and movement: Normal speech and movement present Affect: normal affect Attitude: cooperative Thought process: Normal thought process present Results AMB Hemoglobin A1c AMB Hemoglobin A1c 5.8 % Last Edit by ABRIL Gerard on 03/19/25 15:11 Results Reviewed Results Reviewed: Laboratory Last Values Hgb A1c (Clinic) 5.8 % (4.0-6.0) 03/19/25 14:44 Coding Level of Care Code Est Pt Level 4 (21298) Diagnoses Preoperative clearance Z.818 Ptosis of both eyebrows H57.813 Coronary artery disease involving prairie band coronary artery of prairie band heart without angina pectoris I25.10 Coronary Disease-Associated Artery/Lesion type: prairie band artery [place] vs. transplanted heart: prairie band heart Associated angina: without angina Essential hypertension I10 Hyperlipidemia LDL goal <70 E78.5 Type 2 diabetes mellitus with hyperglycemia, with long-term current use of insulin E11.65; Z79.4 Diabetes mellitus type: type 2 Diabetes mellitus detention insulin use: with terminal carman use Diabetes mellitus complication status: with hyperglycemia Time Spent (min) 41 Assessment & Plan Assessment & Plan (1) Preoperative clearance: Code(s): Z01.818 - Encounter for other preprocedural examination Category: Medical (2) Ptosis of both eyebrows: Code(s): H57.813 - Brow ptosis, bilateral Category: Medical (3) CAD (coronary artery disease): Onset Date: ~2017 Comment: (Hx STEMI with stenting to RCA 01/2018) Code(s): I25.10 - Atherosclerotic heart disease of prairie band coronary artery without angina pectoris Category: Medical Qualifiers: Coronary Disease-Associated Artery/Lesion type: pra[place] band artery [place] vs. transplanted heart: prairie band heart Associated angina: without angina Qualified Code(s): I25.10 - Atherosclerotic heart disease of prairie band coronary artery without angina pectoris (4) Essential hypertension: Code(s): I10 - Essential (primary) hypertension Category: Medical (5) Hyperlipidemia LDL goal <70: Code(s): E78.5 - Hyperlipidemia, unspecified Category: Medical (6) Diabetes mellitus: Onset Date: ~2020 Comment: DM2 - dx 03/2021 Code(s): E11.9 - Type 2 diabetes mellitus without complications Category: Medical Qualifiers: Diabetes mellitus type: type 2 Diabetes mellitus detention insulin use: with detention use Diabetes mellitus complication status: with hyperglycemia Qualified Code(s): E11.65 - Type 2 diabetes mellitus with hyperglycemia; 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 These involve holding insulin the night prior, continuing antihypertensive medications with limited water on the day of the procedure, and remaining NPO to mitigate anesthesia-related risks. Continual glucose level checks are advised during high temperatures to manage his diabetes. Post-surgery, regular follow-ups and medication adjustments will ensure stable condition maintenance. Cardiovascular assessment remains satisfactory as per EKG results. Regarding preop clearance, the patient is at acceptable risk for proposed surgery. Reviewed with the patient that no surgery is completely free of risk and that this examination is to assist the surgeon in reviewing informed consent. Patient was informed and verbally consented to the use of an ambient scribe for clinic note documentation during this visit. 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 Panel Today Z01.818 - Encounter for other preprocedural examination ECG 12 lead EKG Today I10 - Essential (primary) hypertension, I25.10 - Atherosclerotic heart disease of prairie band coronary artery without angina pectoris
== END 2025-03-19 16:40 | disposition home or self-care (01) ==
LOC: HO.HMCH 14:37
PROVIDERS: PCP Internal Medicine
DX: E11.65 Type 2 diabetes mellitus with hyperglycemia (principal); Z79.4 Long term (current) use of insulin

== ENCOUNTER → 2025-03-19 14:36 | Outpatient (BNVA) | payer OTHER, SELFPAY | PROVIDERS: PCP Internal Medicine | DX: Z01.818 Encounter for other preprocedural examination (principal); H02.403 Unspecified ptosis of bilateral eyelids; I25.10 Atherosclerotic heart disease of native coronary artery without angina pectoris; I10 Essential (primary) hypertension; E11.9 Type 2 diabetes mellitus without complications; E78.5 Hyperlipidemia, unspecified; Z79.4 Long term (current) use of insulin; Z79.82 Long term (current) use of aspirin; Z79.84 Long term (current) use of oral hypoglycemic drugs; Z79.899 Other long term (current) drug therapy | CPT/HCPCS: 83036; 99212 ==

== ENCOUNTER 2025-03-20 09:34 | Outpatient (REF) | payer OTHER, SELFPAY ==
--- NOTE | 2025-03-20 09:46 | ECG_ITS ---
Test Reason : ASCD Blood Pressure : */* mmHG Vent. Rate : 70 BPM Atrial Rate : 70 BPM P-R Int : 192 ms QRS Dur : 110 ms QT Int : 418 ms P-R-T Axes : 76 38 67 degrees QTcB Int : 451 ms Normal sinus rhythm Normal ECG When compared with ECG of 09-May-2022 18:05, T wave amplitude has increased in Anterior leads Referred By: Stephan Almazan Electronically Signed By: STORMY MODI
[2025-03-20 09:52] LABS: MANUAL DIFF FLAG NO
[2025-03-20 10:36] LABS: Basophils Absolute Auto 0.1 X10*3/uL (0.0-0.2); Basophils Percent Auto 1.1 % (0-2); Eosinophils Absolute Auto 0.2 X10*3/uL (0.0-0.4); Eosinophils Percent Auto 2.3 % (0-4); Hematocrit 39.3 % (42.0-52.0); Hemoglobin 13.1 g/dl (14.0-18.0); Imm Gran Abs Auto 0.03 X10*3/uL (0.00-0.03); Imm Gran Pct Auto 0.3 % (0.0-0.4); Lymphocytes Absolute Auto 3.5 X10*3/uL (1.2-4.9); Lymphocytes Percent Auto 40.3 % (20-40); Mean Corpuscular HGB Conc 33.3 g/dl (31.0-36.0); Mean Corpuscular Hemoglobin 27.9 pg (27.0-33.0); Mean Corpuscular Volume 83.6 fL (80.0-98.0); Mean Platelet Volume 10.5 fL (9.4-12.4); Monocytes Percent Auto 11.1 % (2-11); Neutrophils Absolute Auto 3.9 x10*3/uL (2.0-8.3); Neutrophils Percent Auto 44.9 % (45-73); Platelet Count 281 X10*3/uL (160-400); Red Cell Distribution Width 14.6 % (11.0-16.0); White Blood Count 8.8 X10*3/uL (4.8-10.8)
[2025-03-20 10:49] LABS: Estimated Average Glucose 114 mg/dL; Hemoglobin A1C 128.8965 umol/L; Hemoglobin A1c % 5.6 % (<6.0); Total Hemoglobin (HGBA1C) 3373.6209 umol/L
[2025-03-20 11:18] LABS: Appearance Urine Turbid; Color Urine Yellow; Glucose Urine UA Negative (Negative); Leukocyte Esterase Urine Negative (Negative); Nitrite Urine Negative (Negative); Urine Blood Negative (Negative); Urine Ketones Trace mg/dL (Negative); Urine Protein Negative (Neg-Trace)
[2025-03-20 11:20] LABS: Alanine Aminotransferase 19 U/L (0-40); Albumin Level 4.6 g/dL (3.5-5.0); Alkaline Phosphatase 76 U/L (39-117); Anion Gap 14 (12-20); Aspartate Amino Transferase 30 U/L (5-37); Bilirubin Total 0.7 mg/dL (0.0-1.0); Blood Urea Nitrogen 11 mg/dL (9-16); Calcium 9.5 mg/dL (8.4-10.2); Carbon Dioxide 25 mmol/L (22-29); Chloride 105 mmol/L (96-108); Cholesterol 182 mg/dL (<200); Estimated Glomerular Filt Rate > 60; Glucose Fasting 112 mg/dL (60-99); Glucose Random 111 mg/dL (60-115); Potassium 3.9 mmol/L (3.3-5.1); Sodium 140 mmol/L (135-145); Total Protein 7.4 g/dL (6.5-8.0); Triglycerides 64 mg/dL (<150)
[2025-03-20 11:25] LABS: Creatinine Urine 177.59 mg/dL; Microalbum/Creatinine Ratio Ur 11.2 ug/mg cr (<30)
[2025-03-20 11:43] LABS: TSH reflex Free T4 2.93 uIU/mL (0.32-4.0); Vitamin D 25-OH Total 30.9 ng/mL (>30)
[2025-03-20 12:06] LABS: HDL Cholesterol 92 mg/dL (>40); LDL Cholesterol Calculated 78 mg/dL (<100)
== END 2025-03-20 09:35 | disposition home or self-care (01) ==
LOC: HO.LAB 09:34
PROVIDERS: Absent Provider Internal Medicine; PCP Internal Medicine
DX: Z01.818 Encounter for other preprocedural examination (principal); D64.9 Anemia, unspecified; E78.00 Pure hypercholesterolemia, unspecified; R30.0 Dysuria; E55.9 Vitamin D deficiency, unspecified; E11.9 Type 2 diabetes mellitus without complications; I25.10 Atherosclerotic heart disease of native coronary artery without angina pectoris; I10 Essential (primary) hypertension
CPT/HCPCS: 36415; 80053; 80061; 81003; 82043; 82306; 82570; 83036; 84443; 85025; 93005

== ENCOUNTER → 2025-03-20 09:46 | Outpatient (BNV) | payer OTHER, SELFPAY | PROVIDERS: Absent Provider Internal Medicine; PCP Internal Medicine; Visit Provider Internal Medicine | DX: I25.10 Atherosclerotic heart disease of native coronary artery without angina pectoris (principal) | CPT/HCPCS: 93010 ==

== ENCOUNTER 2025-03-30 13:13 | Emergency (ER) | payer OTHER, SELFPAY ==
--- NOTE | 2025-03-30 13:18 | ECG_ITS ---
Test Reason : syncope Blood Pressure : */* mmHG Vent. Rate : 57 BPM Atrial Rate : 57 BPM P-R Int : 214 ms QRS Dur : 108 ms QT Int : 444 ms P-R-T Axes : 43 15 55 degrees QTcB Int : 432 ms Sinus bradycardia with 1st degree A-V block Otherwise normal ECG When compared with ECG of 20-Mar-2025 09:45, No significant change was found Referred By: Dmitry Burgess Electronically Signed By: BRO VILLANUEVA MD
--- NOTE | 2025-03-30 13:18 | ED.GENADULT ---
HPI - General Adult General Chief complaint: Syncope Stated complaint: Syncope post stitch removal/ dizziness Time Seen by Provider: 03/30/25 13:17 Source: patient Mode of arrival: EMS Limitations: language barrier History of Present Illness HPI narrative: This is a 64-year-old man with a past medical history of hypertension, hyperlipidemia, type 2 diabetes mellitus, CAD complicated by STEMI status post RCA stent who is brought in by EMS for evaluation of syncope. 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 Patient states that he was getting [facility]. He states that he did not feel any pain with the 1st several stitch removals, but states that the last 2 were painful. He states he was warned they would be painful. He states he started feeling warm and subsequently passed out. Family states patient lost consciousness for about 15 second. Family states he came to and was not confused. Patient states similar episode in the past when getting his molar removed. He states no associated chest pain or dyspnea. He states no back or abdominal pain. He states he did no fall or hurt himself. He states he did urinate at the time. He states no tongue biting. He states feeling well at this time and states no complaints. Related Data Previous Rx's ?Medication ?Instructions ?Recorded blood-glucose meter (FreeStyle #1 ea 01/28/21 Lite Meter kit) lancets 28 gauge (FreeStyle #100 ea 01/28/21 Lancets) pen needle, diabetic 32 gauge x #100 ea 04/22/2103/30 (Comfort EZ Pen [place]) flash glucose scanning reader #1 ea 04/29/21 (FreeStyle Brian 2 [place]) tamsulosin 0.4 mg capsule 0.4 mg PO BEDTIME 30 days #90 caps 08/19/21 blood sugar diagnostic (FreeStyle #100 ea 01/18/22 Lite Strips) famotidine 20 mg tablet (Pepcid) 20 mg PO DAILY PRN abdominal 05/09/22 discomfort #30 tabs ondansetron 4 mg disintegrating 4 mg PO Q8H PRN nausea and 05/09/22 tablet vomiting #20 tabs flash glucose sensor (FreeStyle #2 ea 02/15/24 Brian 2 Sensor kit) pen needle, diabetic 32 gauge x #100 ea 02/15/24 (BD Jacinda 2nd Gen Pen Needle) insulin glargine 100 unit/mL (3 20 unit (0.2 mL) subcut QPM 30 08/30/24 mL) subcutaneous pen (Lan #6 mL Solostar U-100 Insulin) aspirin 81 mg chewable tablet 81 mg PO DAILY 90 days #90 tabs 10/17/24 atorvastatin 80 mg tablet 80 mg PO DAILY 90 days #90 tabs 11/26/24 ezetimibe 10 mg tablet 10 mg PO DAILY 90 days #90 tabs 11/26/24 metformin 1,000 mg tablet 1,000 mg PO BID 90 days #180 tabs 11/26/24 cholecalciferol (vitamin D3) 25 25 mcg PO DAILY #30 caps 03/13/25 mcg (1,000 unit) capsule hydrochlorothiazide 25 mg tablet 25 mg PO DAILY 90 days #90 tabs 03/13/25 amlodipine 10 mg tablet 10 mg PO DAILY #90 tabs 03/17/25 Allergies Allergy/AdvReac Type Severity Reaction Status Date / Time anesthesia from wisdom tooth Allergy Intermediate pt woke up Uncoded 03/30/25 13:23 e in hospital, does not remember reaction Review of Systems Review of Systems: ROS as per HPI [facility] Past Medical History Medical History Overweight (BMI 25.0-29.9) Coronary atherosclerosis Pure hypercholesterolemia Nicotine dependence, cigarettes, uncomplicated Hypercalcemia Vitamin D deficiency BPH (benign prostatic hyperplasia) Diabetes mellitus (~2020) Fatigue Urinary dribbling Atherosclerotic cardiovascular disease CAD (coronary artery disease) (~2017) Essential hypertension Surgical History History of right breast biopsy History of heart artery stent Family History Family History Mother CVD (cardiovascular disease) Father Diabetes Hypertension Social History Social History Household Members: Spouse Housing: Apartment Alcohol intake: current Alcohol intake frequency: 3 or more drinks per day Alcohol type: hard liquor Patient Tobacco Use Status: Current everyday Tobacco user Tobacco use type: Cigarette Cigarette Packs Per Day: 1 Cigarettes Per Day: 20 Years Smoked: 40 e-Cigarette/Vaping Use: Never Used Second Hand Smoke Exposure: Yes Advance Directives: No Advance Directives Information Provided: Yes service: No Current occupational status: unemployed Cognitive needs: No Hearing needs: No Vision needs: Yes Physical Exam ED Vital Signs: Vital Signs - 24 hr 03/30/25 13:21 Temperature 97.8 F Pulse Rate 56 Respiratory Rate 18 Blood Pressure 144/78 H Pulse Oximetry 97 Oxygen Delivery Method Room Air BMI result Body Mass Index 25.9 Gen: NAD, AOx3 HEENT: NCAT, EOMI, normal conjunctiva, no lingual or buccal laceration CV: Bradycardic rate, regular rhythm, no murmurs appreciated Pulm: CTAB, no increased work of breathing GI: Soft, NTND, no rebound, guarding or rigidity Neuro: CN 2-12 grossly intact, no motor or sensory deficits, NIHSS 0, GCS 15 Medical Decision Making Medical Decision Making MDM Narrative: Differential diagnosis includes, but is not limited to vasovagal syncope, orthostasis, seizure. Patient is afebrile and hemodynamically stable on room air. Exam is benign and reassuring. I interpreted the EKG as below, which is overall reassuring with no ischemic changes or concerning electrocardiographic morphology suggest cardiac arrhythmia. Given patient's reported history of syncope and overall reassuring history and exam here today, I do suspect the patient has experienced a situational/micturition vasovagal syncope given reported we sensation of warmth, transient loss of consciousness with immediate return to baseline mentation with no postictal state. Thus, overall clinical suspicion for seizure is very low. I considered CT imaging of the head, but patient had reassuring CT imaging of the head on December 09, 2024 and has experienced no head trauma today. Patient is well-appearing, awake, alert, answering questions with reassuring neurological examination and is appropriate for outpatient follow up and reevaluation. On re-examination, patient is well-appearing and in no acute distress. ?Patient states symptoms have resolved. ?There is no indication for further emergent evaluation in this otherwise well-appearing patient as above. ?Patient is provided written and verbal instructions, educational materials, recommendations for outpatient follow-up, strict return precautions and teach back is performed. ?Patient states understanding and agreement with plan of care. ?Patient is discharged home in stable and improved condition. Admission/Observation Consideration of admission/observation: Escalation of care including admission/observation considered Independent Interpretation I performed an independent interpretation of an: EKG Interpretation: EKG shows sinus rhythm at 57 beats per minute, TX 214, QRS 108, QTC 432, no STEMI, no epsilon wave, no Brugada morphology, no delta wave, no dagger-like Q-wave (compared to previous EKG March 20, 2025 there are no diagnostic ischemic changes) Discharge Plan Discharge Clinical Impression: Vasovagal syncope Patient Disposition: Home, Self-Care Instructions: Syncope (ED) Additional Instructions: Le evaluaron en urgencias. Margarita signos vitales lisa tranquilizadores y adame electrocardiograma era normal. Por favor, consulte con adame m?dico de cabecera en los pr?ximos 5 a 7 d?as. Regrese a urgencias si presenta alguna nueva inquietud o s?ntoma. Prescriptions: No Action (DME) blood-glucose meter [FreeStyle Lite Meter] Kit See Rx Instructions .ROUTE .MEDSUPPLY Qty: 1 0RF Rx Instructions: check blood glucose daily (DME) lancets [FreeStyle Lancets] 28 gauge misc See Rx Instructions .ROUTE .MEDSUPPLY Qty: 100 3RF Rx Instructions: test blood glucose daily tamsulosin 0.4 mg capsule 0.4 mg PO BEDTIME 30 Days Qty: 90 3RF (DME) FreeStyle Lite Strips Strip See Rx Instructions .ROUTE .MEDSUPPLY Qty: 100 3RF Rx Instructions: test blood glucose insulin glargine [Lantus Solostar U-100 Insulin] 100 unit/mL (3 mL) insulin pen 20 unit subcut QPM 30 Days Qty: 6 2RF atorvastatin 80 mg tablet 80 mg PO DAILY 90 Days Qty: 90 3RF ezetimibe 10 mg tablet 10 mg PO DAILY 90 Days Qty: 90 1RF metformin 1,000 mg tablet 1,000 mg PO BID 90 Days Qty: 180 1RF hydrochlorothiazide 25 mg tablet 25 mg PO DAILY 90 Days Qty: 90 3RF cholecalciferol (vitamin D3) 25 mcg (1,000 unit) capsule 25 mcg PO DAILY Qty: 30 2RF amlodipine 10 mg tablet 10 mg PO DAILY Qty: 90 3RF famotidine [Pepcid] 20 mg tablet 20 mg PO DAILY PRN (Reason: abdominal discomfort) Qty: 30 0RF ondansetron 4 mg tablet,disintegrating 4 mg PO Q8H PRN (Reason: nausea and vomiting) Qty: 20 0RF (DME) Comfort EZ Pen [place] 32 gauge x 5/16 needle See Rx Instructions .ROUTE .MEDSUPPLY Qty: 100 3RF Rx Instructions: Use 1 needle for 90 day (DME) pen needle, diabetic [BD Jacinda 2nd Gen Pen Needle] 32 gauge x 5/32 needle See Rx Instructions .ROUTE .MEDSUPPLY Qty: 100 11RF Rx Instructions: Use 1 needel once a day for 90 days (DME) FreeStyle Brian 2 Sensor Kit See Rx Instructions .ROUTE .MEDSUPPLY Qty: 2 6RF Rx Instructions: As directed every 2 weeks (DME) FreeStyle Brian 2 [place] Misc See Rx Instructions .ROUTE .MEDSUPPLY Qty: 1 0RF Rx Instructions: As directed aspirin 81 mg tablet,chewable 81 mg PO DAILY 90 Days Qty: 90 1RF Print Language: Mongolian
[2025-03-30 13:21] VITALS: BP 134/74; BP 144/78; PULSE 56; PULSE 60; RESP 18; TEMP 36.6; O2SAT 97; O2SAT 98; BMI 25.9
[2025-03-30 14:35] VITALS: BP 148/72; PULSE 58; RESP 13; TEMP 36.7; O2SAT 97
[2025-03-30 14:47] VITALS: BP 148/72; PULSE 58; RESP 13; TEMP 36.7; O2SAT 97
== END 2025-03-30 14:48 | disposition home or self-care (01) ==
PROVIDERS: Emergency Provider Emergency Medicine; PCP Internal Medicine
DX: R55 Syncope and collapse (principal); R00.1 Bradycardia, unspecified; E11.9 Type 2 diabetes mellitus without complications; I10 Essential (primary) hypertension; R42 Dizziness and giddiness; F17.210 Nicotine dependence, cigarettes, uncomplicated; Z79.899 Other long term (current) drug therapy
CPT/HCPCS: 93005; 99283; 99284

== ENCOUNTER → 2025-03-30 13:18 | Outpatient (BNV) | payer OTHER, SELFPAY | PROVIDERS: Emergency Provider Emergency Medicine; PCP Internal Medicine; Visit Provider Internal Medicine Cardiovascular Disease | DX: I44.0 Atrioventricular block, first degree (principal); R00.1 Bradycardia, unspecified | CPT/HCPCS: 93010 ==

== ENCOUNTER 2025-05-30 14:11 | Outpatient (AMB) | payer OTHER, SELFPAY ==
[2025-05-30 14:23] VITALS: BP 148/96; PULSE 80; O2SAT 96; BMI 24.5
--- NOTE | 2025-05-30 14:23 | MHC.PC.OV ---
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 Accompanied by: Self / Same As Patient Allergies anesthesia from wisdom tooth e Allergy (Intermediate, Uncoded 06/04/25 01:07) pt woke up in hospital, does not remember reaction Medication List - Last Reconciled 06/04/25 by Jethro Davis MD amlodipine 10 mg PO DAILY aspirin 81 mg PO DAILY 90 days atorvastatin 80 mg PO DAILY 90 days blood sugar diagnostic (FreeStyle Lite Strips) test blood glucose blood-glucose meter (FreeStyle Lite Meter kit) check blood glucose daily cholecalciferol (vitamin D3) 25 mcg PO DAILY ezetimibe 10 mg PO DAILY 90 days famotidine (Pepcid) 20 mg PO DAILY PRN flash glucose scanning reader (TrackTikStyle Brian 2 [place]) As directed flash glucose sensor (FreeStyle Brian 2 Sensor kit) As directed every 2 weeks hydrochlorothiazide 25 mg PO DAILY 90 days insulin glargine (Lantus Solostar U-100 Insulin) 20 units (0.2 mL) subcut QPM 30 days lancets (FreeStyle Lancets) test blood glucose daily metformin 1,000 mg PO BID 90 days ondansetron 4 mg PO Q8H PRN pen needle, diabetic (Comfort EZ Pen [place]) Use 1 needle for 90 day pen needle, diabetic (BD Jacinda 2nd Gen Pen Needle) Use 1 needel once a day for 90 days tamsulosin 0.4 mg PO BEDTIME 30 days Tobacco use date assessed: 05/30/25 Dental Screening Dental Screen Date: 05/30/25 Did you have a dental visit in the last 12 months?: No Did you have a dental problem in the last 6 months where you did not have access to dental care?: No Was dental information given to patient?: Patient has dentist HPI 4 Month F/U HPI Details Patient comes in today for his follow-up visit States that he feels okay He denies any headaches or dizziness Denies any chest pains, no increased shortness of breath No nausea/vomiting, no abdominal pain No change in bowel habits noted Needs his Amlodipine Rx refilled He had his follow-up labs done couple of months ago - to discuss his results [facility] Medical History Overweight (BMI 25.0-29.9) Coronary atherosclerosis Pure hypercholesterolemia Nicotine dependence, cigarettes, uncomplicated Hypercalcemia Vitamin D deficiency BPH (benign prostatic hyperplasia) Diabetes mellitus (~2020) Fatigue Urinary dribbling Atherosclerotic cardiovascular disease CAD (coronary artery disease) (~2017) Essential hypertension Surgical History History of right breast biopsy History of heart artery stent Family History Mother CVD (cardiovascular disease) Father Diabetes Hypertension Social History Household Members: Spouse Housing: Apartment Alcohol intake: current Alcohol intake frequency: 3 or more drinks per day Alcohol type: hard liquor Patient Tobacco Use Status: Current everyday Tobacco user Tobacco use type: Cigarette Cigarette Packs Per Day: 1 Cigarettes Per Day: 20 Years Smoked: 40 e-Cigarette/Vaping Use: Never Used Second Hand Smoke Exposure: Yes service: No Current occupational status: unemployed Cognitive needs: No Hearing needs: No Vision needs: Yes Questionnaire PHQ-9 Over the last 2 weeks, how often have you been bothered by any of the following problems? 1. Little interest or pleasure in doing things: not at all 2. Feeling down, depressed, or hopeless: not at all 3. Trouble falling or staying asleep, or sleeping too much: not at all 4. Feeling tired or having little energy: not at all 5. Poor appetite or overeating: not at all 6. Feeling bad about yourself - or that you are a failure or have let yourself or your family down: not at all 7. Trouble concentrating on things, such as reading the newspaper or watching television: not at all 8. Moving or speaking so slowly that other people could have noticed. Or the opposite - being so fidgety or restless that you have been moving around a lot more than usual: not at all 9. Thoughts that you would be better off or of hurting yourself in some way: not at all Total score: 0 Depression Screening Interpretation: Negative Depression Screening Done: Yes [id number] - PHQ-9 Billing: Yes Source: Developed by Drs. Vaibhav Delgado, Karol Go, Zak oRdriguez and colleagues, with an educational daniel from [employer]. Thrive Questionnaire Date Thrive assessed: 05/30/25 I am a: Patient What is your living situation today?: I have a steady place to live Within the past 12 months, did the food you bought not last and you didn't have the money to get more?: Never true Within the past 12 months, did you worry whether your food would run out before you got money to buy more?: Never true Do you have trouble paying for medicines?: No Do you have trouble getting transportation to medical appointments?: No Do you have trouble paying your heating and electricity bill?: No Do you have trouble taking care of your child, family member or friend?: No Do you have trouble with day-to-day activities such as bathing, preparing meals, shopping, managing finances, etc.?: No Are you currently unemployed and looking for a job?: No Are you interested in more education?: No Please select the resources that you would like help with: None Currently or been in a relationship where the following occur: No concerns reported THRIVE Score: 0 AUDIT C Alcohol Use Questionnaire (AUDIT-C) 1. How often do you have a drink containing alcohol?: 4 or more times a week 2. How many drinks containing alcohol do you have on a typical day when you are drinking?: 1 or 2 3. How often do you have six or more drinks on one occasion?: Never Total Score: 4 Score Reviewed/Action Taken: Yes MAMADOU-7 AMB Questionnaire MAMADOU-7 Date MAMADOU - 7 assessed: 05/30/25 Feeling nervous, anxious, or on edge: 0 = Not at all Not being able to stop or control worryin = Not at all Worrying too much about different things: 0 = Not at all Trouble relaxin = Not at all Being so restless that it is hard to sit still: 0 = Not at all Becoming easily annoyed or irritable: 0 = Not at all Feeling afraid as if something awful might happen: 0 = Not at all Total MAMADOU-7 score (0-4 normal; 5-9 mild; 10-14 moderate; 15-21 severe): 0 Source: Developed by Drs. Vaibhav Delgado, Karol Go, Zak Rodriguez and colleagues, with an educational daniel from [employer]. Review of Systems Const Denies chills, Denies fatigue, Denies fever(s) and Denies headache(s) ENT Denies dysphagia, Denies dizziness, Denies otalgia, Denies headache(s), Denies neck pain, Denies odynophagia and Denies sore throat Card Denies chest pain, Denies palpitations and Denies dyspnea Resp Denies chest congestion, Denies cough and Denies dyspnea GI Denies abdominal pain, Denies constipation, Denies dysphagia, Denies heartburn, Denies diarrhea, Denies nausea, Denies odynophagia and Denies vomiting Denies difficulty urinating, Denies dysuria, Denies nocturia and Denies urinary frequency Musc Denies back pain, Denies arthralgias and Denies neck pain Skin/Breast Denies rash Neuro Denies dizziness and Denies headache(s) Endo Denies fatigue and Denies palpitations Physical exam (Primary Care) Vital Signs: Last Vital Signs Pulse 80 05/30/25 14:23 BP 148/96 H 05/30/25 14:23 Pulse Ox 96 05/30/25 14:23 Oxygen Delivery Method Room Air 05/30/25 14:23 BMI result Body Mass Index 24.5 Tobacco/Smoking Status: Tobacco use Status Tobacco use date assessed 05/30/25 05/30/25 14:29 Patient Tobacco Use Status Current everyday Tobacco 05/30/25 14:29 Tobacco use type Cigarette 05/30/25 14:29 e-Cigarette/Vaping Use Never Used 05/30/25 14:29 PHQ-9: PHQ-9 Score PHQ-9: Total score 0 05/30/25 14:37 Depression Screening Interpretation: Negative Thrive Assessment: Date of Thrive Assessment Date Thrive assessed 05/30/25 05/30/25 14:29 Currently or been in a relationship where the following occur: No concerns reported Const General: no acute distress and alert HENMT Ears: TM's normal bilaterally and EAC's normal Throat: Yes posterior oropharynx normal and Yes tonsils normal (no TP congestion) Neck Neck: Yes supple and No lymphadenopathy Thyroid: Thyroid normal Resp Auscultation: clear to auscultation bilaterally, no rales and no wheezes Cardio Rate: regular rate Rhythm: regular rhythm Heart sounds: no murmurs GI Palpation (GI): Soft to palpation and nontender Auscultation: normal bowel sounds General: Yes no CVA tenderness Back/Spine/Pelvis Back: no CVA tenderness Thoracic/Lumbar Spine: No lumbar spinal tenderness Skin Rashes: no rashes Extrem General: Yes no clubbing, cyanosis or edema Results Reviewed Results Reviewed: Laboratory Tests 03/19/25 03/20/25 03/20/25 14:44 09:45 09:49 WBC 8.8 Hgb 13.1 L Hct 39.3 L Plt Count 281 Sodium 140 Potassium 3.9 Creatinine 0.73 Estimated GFR > 60 Fasting Glucose 112 H Hgb A1c (Clinic) 5.8 Hemoglobin A1c % 5.6 Calcium 9.5 AST 30 ALT 19 Triglycerides 64 Cholesterol 182 LDL Cholesterol, Calc 78 HDL Cholesterol 92 25-OH Vitamin D Total 30.9 TSH 2.93 Ur Specific [place] 1.020 Urine Protein Negative Urine Glucose (UA) Negative Urine Blood Negative Urine Nitrite Negative Ur Leukocyte Esterase Negative Microalb/Creat Ratio 11.2 Coding Level of Care Code Est Pt Level 4 (05226) Diagnoses Atherosclerosis of [place] coronary artery of [place] heart without angina pectoris I25.10 Coronary Disease-Associated Artery/Lesion type: [place] artery [place] vs. transplanted heart: [place] heart Associated angina: without angina Pure hypercholesterolemia E78.00 Type 2 diabetes mellitus with hyperglycemia, with long-term current use of insulin E11.65; Z79.4 Diabetes mellitus type: type 2 Diabetes mellitus half-way insulin use: with half-way use Diabetes mellitus complication status: with hyperglycemia Essential hypertension I10 Gastroesophageal reflux disease without esophagitis K21.9 Esophagitis presence: without esophagitis Vitamin D deficiency E55.9 Benign prostatic hyperplasia with nocturia N40.1; R35.1 Lower urinary tract symptom presence: symptoms present Lower urinary tract symptom detail: nocturia Additional Codes PHQ-9 - 41330 - PHQ-9 Billing: Yes ([id number]) Assessment & Plan Assessment & Plan (1) Coronary atherosclerosis: Comment: S/P STEMI - RCA stented in 01/2018 Code(s): I25.10 - Atherosclerotic heart disease of [place] coronary artery without angina pectoris Category: Medical Qualifiers: Coronary Disease-Associated Artery/Lesion type: [place] artery [place] vs. transplanted heart: [place] heart Associated angina: without angina Qualified Code(s): I25.10 - Atherosclerotic heart disease of [place] coronary artery without angina pectoris Plan: S/P STEMI with stenting of RCA in 01/2018 Patient is currently asymptomatic from cardiology standpoint Continue Aspirin 81 mg QD and aggressive risk factor modification Follow up with cardiology as scheduled (2) Pure hypercholesterolemia: Code(s): E78.00 - Pure hypercholesterolemia, unspecified Category: Medical Plan: Results of his labs done a couple of months ago reviewed and discussed with patient Reinforced low cholesterol diet Continue Atorvastatin 80 mg QD and Ezetimibe 10 mg QD Will recheck his labs and fasting lipids in 3 months for follow up (3) Diabetes mellitus: Onset Date: ~2020 Comment: DM2 - dx 03/2021 Code(s): E11.9 - Type 2 diabetes mellitus without complications Category: Medical Qualifiers: Diabetes mellitus type: type 2 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 use: with half-way use Diabetes mellitus complication status: with hyperglycemia Qualified Code(s): E11.65 - Type 2 diabetes mellitus with hyperglycemia; Z79.4 - 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 insulin Plan: His HgbA1c was at 5.6% on his labs done a couple of months ago - goal is at least <7.0% but ideally <6.5% Reinforced diabetic diet Continue Metformin 1000 mg BID and Lantus Solostar 20 units Q HS (4) Essential hypertension: Code(s): I10 - Essential (primary) hypertension Category: Medical Plan: Reinforced low sodium diet - goal is systolic BP of 120 mm or less Continue Hydrochlorothiazide 25 mg Q AM and Amlodipine 10 mg QD (Rx refilled) Patient is reminded to continue monitoring his blood pressure regularly (5) GERD (gastroesophageal reflux disease): Code(s): K21.9 - Gastro-esophageal reflux disease without esophagitis Category: Medical Qualifiers: Esophagitis presence: without esophagitis Qualified Code(s): K21.9 - Gastro-esophageal reflux disease without esophagitis Plan: Dietary restrictions reinforced Continue Famotidine 20 mg QD (6) Vitamin D deficiency: Code(s): E55.9 - Vitamin D deficiency, unspecified Category: Medical Plan: Continue Vitamin D3 1000 units QD (7) BPH (benign prostatic hyperplasia): Code(s): N40.0 - Benign prostatic hyperplasia without lower urinary tract symptoms Category: Medical Qualifiers: Lower urinary tract symptom presence: symptoms present Lower urinary tract symptom detail: nocturia Qualified Code(s): N40.1 - Benign prostatic hyperplasia with lower urinary tract symptoms; R35.1 - Nocturia Plan: Continue Tamsulosin 0.4 mg Q HS Follow up with urology as scheduled Plan Follow up in 3 months Orders: Orders Complete Blood Count Auto Diff 3 Months D64.9 - Anemia, unspecified Hemoglobin A1c 3 Months E11.9 - Type 2 diabetes mellitus without complications TSH reflex Free T4 3 Months E78.00 - Pure hypercholesterolemia, unspecified UA CC w/rflx Micro + Cult 3 Months R30.0 - Dysuria Vitamin D 25-OH Total 3 Months E55.9 - Vitamin D deficiency, unspecified Comprehensive [place]. Panel Fast 3 Months E78.00 - Pure hypercholesterolemia, unspecified Lipid Panel 3 Months E78.00 - Pure hypercholesterolemia, unspecified Microalbumin, Random (w Creat) 3 Months E11.9 - Type 2 diabetes mellitus without complications Medications: Refilled amlodipine 10 mg PO DAILY 90 tabs 3RF
== END 2025-05-30 14:40 | disposition home or self-care (01) ==
LOC: HO.HMCH 14:12
PROVIDERS: PCP Internal Medicine; Visit Provider Internal Medicine
DX: I25.10 Atherosclerotic heart disease of native coronary artery without angina pectoris (principal); E78.00 Pure hypercholesterolemia, unspecified; E11.65 Type 2 diabetes mellitus with hyperglycemia; Z79.4 Long term (current) use of insulin; I10 Essential (primary) hypertension; K21.9 Gastro-esophageal reflux disease without esophagitis; E55.9 Vitamin D deficiency, unspecified; N40.1 Benign prostatic hyperplasia with lower urinary tract symptoms; R35.1 Nocturia

== ENCOUNTER → 2025-05-30 14:11 | Outpatient (BNVA) | payer OTHER, SELFPAY | PROVIDERS: PCP Internal Medicine; Visit Provider Internal Medicine | DX: I25.10 Atherosclerotic heart disease of native coronary artery without angina pectoris (principal); E78.00 Pure hypercholesterolemia, unspecified; E11.65 Type 2 diabetes mellitus with hyperglycemia; I10 Essential (primary) hypertension; K21.9 Gastro-esophageal reflux disease without esophagitis; E55.9 Vitamin D deficiency, unspecified; N40.1 Benign prostatic hyperplasia with lower urinary tract symptoms; R35.1 Nocturia; Z79.4 Long term (current) use of insulin | CPT/HCPCS: 96127; 99212 ==

== ENCOUNTER 2025-09-03 13:36 | Outpatient (AMB) | payer OTHER, SELFPAY ==
--- NOTE | 2025-09-03 14:12 | MHC.PC.OV ---
Vital Signs 09/03/25 14:16 Height 5 ft 6 in BMI Reason not done Patient refused/unable BP 118/80 Blood Pressure Location Lt brachial Position Sitting Pulse 76 Pulse Source Pulse Oximeter Pulse Oximetry (%) 98 Oxygen Delivery Method Room Air Intake Visit Reasons: 3 mnth f/u Safety Director Required: No Accompanied by: Self / Same As Patient Allergies anesthesia from wisdom tooth e Allergy (Intermediate, Uncoded 09/03/25 14:57) pt woke up in hospital, does not remember reaction Medication List - Last Reconciled 09/03/25 by Jethro Davis MD amlodipine 10 mg PO DAILY aspirin 81 mg PO DAILY 90 days atorvastatin 80 mg PO DAILY 90 days blood sugar diagnostic (FreeStyle Lite Strips) test blood glucose blood-glucose meter (FreeStyle Lite Meter kit) check blood glucose daily cholecalciferol (vitamin D3) 25 mcg PO DAILY commode (bedside commode) As directed patient confined to 1 room ezetimibe 10 mg PO DAILY 90 days famotidine (Pepcid) 20 mg PO DAILY PRN flash glucose scanning reader (Cardiovascular DecisionsStyle Brian 2 Craig) As directed flash glucose sensor (FreeStyle Brian 2 Sensor kit) As directed every 2 weeks hydrochlorothiazide 25 mg PO DAILY 90 days insulin glargine (Lantus Solostar U-100 Insulin) 20 units (0.2 mL) subcut QPM 30 days lancets (FreeStyle Lancets) test blood glucose daily metformin 1,000 mg PO BID 90 days ondansetron 4 mg PO Q8H PRN pen needle, diabetic (Comfort EZ Pen [place]) Use 1 needle for 90 day pen needle, diabetic (BD Jacinda 2nd Gen Pen Needle) Use 1 needel once a day for 90 days tamsulosin 0.4 mg PO BEDTIME 30 days Tobacco use date assessed: 09/03/25 Fall risk assessment: 1 Fall in past year Last assessed Fall Risk: 09/03/25 Dental Screening Dental Screen Date: 09/03/25 Did you have a dental visit in the last 12 months?: No Did you have a dental problem in the last 6 months where you did not have access to dental care?: No Was dental information given to patient?: Patient has dentist HPI 3 mnth f/u HPI Details Patient comes in today for his follow up visit 5 weeks ago - slipped and fell and twisted R ankle - Fx -- currently in a walking boot s/p ankle and knee surgery f/u with ortho 09/13 Did not get his follow up labs done [facility] [place] Medical History Overweight (BMI 25.0-29.9) Coronary atherosclerosis Pure hypercholesterolemia Nicotine dependence, cigarettes, uncomplicated Hypercalcemia Vitamin D deficiency BPH (benign prostatic hyperplasia) Diabetes mellitus (~2020) Fatigue Urinary dribbling Atherosclerotic cardiovascular disease CAD (coronary artery disease) (~2017) Essential hypertension Surgical History History of right breast biopsy History of heart artery stent Family History Mother CVD (cardiovascular disease) Father Diabetes Hypertension Social History Household Members: Spouse Housing: Apartment Alcohol intake: current Alcohol intake frequency: 3 or more drinks per day Alcohol type: hard liquor Patient Tobacco Use Status: Current everyday Tobacco user Tobacco use type: Cigarette Cigarette Packs Per Day: 1 Cigarettes Per Day: 20 Years Smoked: 40 Packs Per Year: 40 Packs per year/per ci.00 e-Cigarette/Vaping Use: Never Used Second Hand Smoke Exposure: Yes service: No Current occupational status: unemployed Cognitive needs: No Hearing needs: No Vision needs: Yes Questionnaire Thrive Questionnaire Date Thrive assessed: 05/30/25 AUDIT C Alcohol Use Questionnaire (AUDIT-C) 1. How often do you have a drink containing alcohol?: 4 or more times a week 2. How many drinks containing alcohol do you have on a typical day when you are drinking?: 1 or 2 3. How often do you have six or more drinks on one occasion?: Never Total Score: 4 Score Reviewed/Action Taken: Yes MAMADOU-7 AMB Questionnaire MAMADOU-7 Date MAMADOU - 7 assessed: 05/30/25 Source: Developed by Drs. Vaibhav Delgado, Karol Go, Zak Rodriguez and colleagues, with an educational daniel from [employer]. Physical exam (Primary Care) Vital Signs: Last Vital Signs Pulse 76 09/03/25 14:16 BP 118/80 09/03/25 14:16 Pulse Ox 98 09/03/25 14:16 Oxygen Delivery Method Room Air 09/03/25 14:16 Tobacco/Smoking Status: Tobacco use Status Tobacco use date assessed 09/03/25 09/03/25 14:29 Patient Tobacco Use Status Current everyday Tobacco 09/03/25 14:14 Tobacco use type Cigarette 09/03/25 14:14 e-Cigarette/Vaping Use Never Used 09/03/25 14:14 Thrive Assessment: Date of Thrive Assessment Date Thrive assessed 05/30/25 09/03/25 14:14 Results AMB Hemoglobin A1c AMB Hemoglobin A1c 6.0 % Last Edit by ABRIL Gerard on 09/03/25 14:51 Results Reviewed Results Reviewed: Laboratory Last Values Hgb A1c (Clinic) 6.0 % (4.0-6.0) 09/03/25 14:37 Coding Diagnoses Atherosclerosis of [place] coronary artery of [place] heart without angina pectoris I25.10 Coronary Disease-Associated Artery/Lesion type: [place] artery [place] vs. 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 insulin use: with [facility] use Diabetes mellitus complication status: with hyperglycemia Essential hypertension I10 Gastroesophageal reflux disease without esophagitis K21.9 Esophagitis presence: without esophagitis Vitamin D deficiency E55.9 Benign prostatic hyperplasia with nocturia N40.1; R35.1 Lower urinary tract symptom presence: symptoms present Lower urinary tract symptom detail: nocturia Assessment & Plan Assessment & Plan (1) Coronary atherosclerosis: Comment: S/P STEMI - RCA stented in 01/2018 Code(s): I25.10 - Atherosclerotic heart disease of [place] coronary artery without angina pectoris Category: Medical Qualifiers: Coronary Disease-Associated Artery/Lesion type: [place] artery [place] vs. transplanted heart: [place] heart Associated angina: without angina Qualified Code(s): I25.10 - Atherosclerotic heart disease of [place] coronary artery without angina pectoris Plan: S/P STEMI with stenting of RCA in 01/2018 Patient is currently asymptomatic from cardiology standpoint Continue Aspirin 81 mg QD and aggressive risk factor modification Follow up with cardiology as scheduled (2) Pure hypercholesterolemia: Code(s): E78.00 - Pure hypercholesterolemia, unspecified Category: Medical Plan: Results of his labs done a couple of months ago reviewed and discussed with patient Reinforced low cholesterol diet Continue Atorvastatin 80 mg QD and Ezetimibe 10 mg QD Will recheck his labs and fasting lipids in 3 months for follow up (3) Diabetes mellitus: Onset Date: ~2020 Comment: DM2 - dx 03/2021 Code(s): E11.9 - Type 2 diabetes mellitus without complications Category: Medical Qualifiers: Diabetes mellitus type: type 2 Diabetes mellitus termite control representative insulin use: with [facility] use Diabetes mellitus complication status: with hyperglycemia Qualified Code(s): E11.65 - Type 2 diabetes mellitus with hyperglycemia; Z79.4 - termite control representative (current) use of insulin Plan: In-office HgbA1c done today is at 6.0% His HgbA1c was at 5.6% on his labs done a couple of months ago - goal is at least <7.0% but ideally <6.5% Reinforced diabetic diet Continue Metformin 1000 mg BID and Lantus Solostar 20 units Q HS (4) Essential hypertension: Code(s): I10 - Essential (primary) hypertension Category: Medical Plan: Reinforced low sodium diet - goal is systolic BP of 120 mm or less Continue Hydrochlorothiazide 25 mg Q AM and Amlodipine 10 mg QD (Rx refilled) Patient is reminded to continue monitoring his blood pressure regularly (5) GERD (gastroesophageal reflux disease): Code(s): K21.9 - Gastro-esophageal reflux disease without esophagitis Category: Medical Qualifiers: Esophagitis presence: without esophagitis Qualified Code(s): K21.9 - Gastro-esophageal reflux disease without esophagitis Plan: Dietary restrictions reinforced Continue Famotidine 20 mg QD (6) Vitamin D deficiency: Code(s): E55.9 - Vitamin D deficiency, unspecified Category: Medical Plan: Continue Vitamin D3 1000 units QD (7) BPH (benign prostatic hyperplasia): Code(s): N40.0 - Benign prostatic hyperplasia without lower urinary tract symptoms Category: Medical Qualifiers: Lower urinary tract symptom presence: symptoms present Lower urinary tract symptom detail: nocturia Qualified Code(s): N40.1 - Benign prostatic hyperplasia with lower urinary tract symptoms; R35.1 - Nocturia Plan: Continue Tamsulosin 0.4 mg Q HS Follow up with urology as scheduled Plan Follow up in 3 months Orders: Orders AMB Hemoglobin A1c Today Z13.9 - Encounter for screening, unspecified Medications: Refilled aspirin 81 mg PO DAILY 90 tabs 3RF 90 days
[2025-09-03 14:16] VITALS: BP 118/80; PULSE 76; O2SAT 98
== END 2025-09-03 15:10 | disposition home or self-care (01) ==
LOC: HO.HMCH 13:37
PROVIDERS: PCP Internal Medicine; Visit Provider Internal Medicine
DX: Z13.9 Encounter for screening, unspecified (principal)

== ENCOUNTER → 2025-09-03 13:36 | Outpatient (BNVA) | payer OTHER, SELFPAY | PROVIDERS: PCP Internal Medicine; Visit Provider Internal Medicine | DX: I25.10 Atherosclerotic heart disease of native coronary artery without angina pectoris (principal); E78.00 Pure hypercholesterolemia, unspecified; E11.65 Type 2 diabetes mellitus with hyperglycemia; K21.9 Gastro-esophageal reflux disease without esophagitis; E55.9 Vitamin D deficiency, unspecified; N40.1 Benign prostatic hyperplasia with lower urinary tract symptoms; R35.1 Nocturia; S82.891D Other fracture of right lower leg, subsequent encounter for closed fracture with routine healing; S89.91XD Unspecified injury of right lower leg, subsequent encounter; I25.2 Old myocardial infarction; Z79.4 Long term (current) use of insulin; Z79.82 Long term (current) use of aspirin; Z79.899 Other long term (current) drug therapy | CPT/HCPCS: 83036; 99212 ==